=== PATIENT | male | born 1945 | race Caucasian/White ===

== ENCOUNTER 2023-09-17 19:46 | Outpatient (OUT) | payer OTHER, SELFPAY | END 2023-09-17 19:47 | disposition home or self-care (01) | LOC: SLEEP 19:46 | DX: G47.33 Obstructive sleep apnea (adult) (pediatric) (principal) | CPT/HCPCS: 95811 ==

== ENCOUNTER 2024-01-30 15:48 | Outpatient (OUT) | payer OTHER, SELFPAY ==
--- NOTE | 2024-01-30 16:05 | XR_ITS ---
The [address] [address] Patient Name: MURPHY DE LA ROSA MRN: [id number] date: 1945 Sex: M Assigned Patient Location: [facility] Current Patient Location: [facility] Accession/Order Number: [id number] Exam Date: 01/30/2024 16:00 Report Date: 01/30/2024 16:22 At the request of: FRANCESCO SCALES Procedure: XR chest 2V EXAM: XR chest 2V HISTORY: cough R05.9, Sensation of chest tightness R07.89 wheezing. COMPARISON: None. TECHNIQUE: PA, lateral chest x-ray. FINDINGS: Lungs appear clear without infiltrate or edema. Normal heart size and mediastinal contour. No pleural effusion or pneumothorax. Compression deformities upper and mid thoracic spine most significant at approximately T7 and T5 of uncertain chronicity. Lesser compressions elsewhere. No definite cortical step off, these could be old. No focal bone lesion. No other fracture seen. XR/XR chest 2V IMPRESSION: 1. Clear lungs without infiltrate or edema or other acute process. 2. Compression deformity several upper/mid thoracic vertebra of uncertain chronicity. These could be old, correlate clinically. No other bony abnormality noted Electronically authenticated by: BERRY VALDOVINOS Date: 01/30/2024 16:22
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
== END 2024-01-30 15:49 | disposition home or self-care (01) ==
LOC: RAD 15:51
PROVIDERS: PCP Family Medicine; Visit Provider Nurse Practitioner Family
DX: R05.9 Cough, unspecified (principal); R07.89 Other chest pain; R09.89 Other specified symptoms and signs involving the circulatory and respiratory systems
CPT/HCPCS: 71046

== ENCOUNTER 2024-02-15 15:17 | Outpatient (OUT) | payer OTHER, SELFPAY ==
--- NOTE | 2024-02-15 15:26 | XR_ITS ---
[facility] [id number] Patient Name: MURPHY DE LA ROSA MRN: [id number] date: 1945 Sex: M Assigned Patient Location: [facility] Current Patient Location: [facility] Accession/Order Number: [id number] Exam Date: 02/15/2024 15:33 Report Date: 02/15/2024 15:58 At the request of: DEISY GLORIA Procedure: XR thoracic spine 3V EXAMINATION: XR lumbar spine 2-3V, XR thoracic spine 3V HISTORY: pain in thoracic spine M54.6, lumbar back pain M54.50 COMPARISON: No relevant comparison available. FINDINGS: BONES: Normal alignment of the thoracic and lumbar spine with no spondylolisthesis. Anterior wedging T5 T7 and T8,T9, T10,T11 and T12, age indeterminate. Moderate diffuse degenerative spondylosis. Moderate to severe facet osteoarthropathy DISC SPACES: Multilevel disc space narrowing with endplate sclerosis and vacuum disks PARASPINOUS: Negative. No paraspinous abnormality is seen. OTHER: Atherosclerosis XR/XR thoracic spine 3V IMPRESSION: Anterior wedge compression fractures of multiple thoracic vertebral bodies, age indeterminate Moderate degenerative changes of the thoracic and lumbar spine Electronically authenticated by: FREDO SORENSEN Date: 02/15/2024 15:58
--- NOTE | 2024-02-15 15:27 | XR_ITS ---
[facility] [id number] Patient Name: MURPHY DE LA ROSA MRN: [id number] date: 1945 Sex: M Assigned Patient Location: [facility] Current Patient Location: [facility] Accession/Order Number: [id number] Exam Date: 02/15/2024 15:33 Report Date: 02/15/2024 15:58 At the request of: DEISY GLORIA Procedure: XR lumbar spine 2-3V EXAMINATION: XR lumbar spine 2-3V, XR thoracic spine 3V HISTORY: pain in thoracic spine M54.6, lumbar back pain M54.50 COMPARISON: No relevant comparison available. FINDINGS: BONES: Normal alignment of the thoracic and lumbar spine with no spondylolisthesis. Anterior wedging T5 T7 and T8,T9, T10,T11 and T12, age indeterminate. Moderate diffuse degenerative spondylosis. Moderate to severe facet osteoarthropathy DISC SPACES: Multilevel disc space narrowing with endplate sclerosis and vacuum disks PARASPINOUS: Negative. No paraspinous abnormality is seen. OTHER: Atherosclerosis XR/XR lumbar spine 2-3V IMPRESSION: Anterior wedge compression fractures of multiple thoracic vertebral bodies, age indeterminate Moderate degenerative changes of the thoracic and lumbar spine Electronically authenticated by: FREDO SORENSEN Date: 02/15/2024 15:58
== END 2024-02-15 15:18 | disposition home or self-care (01) ==
LOC: RAD 15:19
PROVIDERS: PCP Family Medicine; Visit Provider Family Medicine
DX: M54.6 Pain in thoracic spine (principal); M54.50 Low back pain, unspecified; M48.54XA Collapsed vertebra, not elsewhere classified, thoracic region, initial encounter for fracture; M51.36 Other intervertebral disc degeneration, lumbar region
CPT/HCPCS: 72072; 72100

== ENCOUNTER 2024-03-29 07:30 | Outpatient (OUT) | payer OTHER, SELFPAY ==
--- OUTSIDE RECORDS SUMMARY | 2024-03-29 07:33 | XMS_ITS | CCD ---
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 concerns, sleeping frequently Diagnosis 1 Restless leg syndrom e (G25.81) Referral Organization [facility] timur Referring Provider First Name Atiya Referring Provider Last Name Gely Referring Provider Specialty Family [facility] Referred Organization [facility] Referred Provider Jl Law Referred Address [address] [place],[address] Referred Provider Specialty Neurology Referral Priority Routine General Notes Kecia Eason 03:19:41 PM >received today, form attached, referral faxed Chief Complaint and Reason for Visit Chief Complaint Congestion Reason for Visit Abnormal lung sounds Chest tightness Cough Chief Complaint Congestion pain in lower back Reason for Visit Abnormal lung sounds Bronchitis Chest tightness Cough Lumbar pain Thoracic back pain Additional Source Comments (unrecognized sect ion and content) No Status Records FoundNo Status Records Found INFORMATION SOURCE (unrecogn ized section and content) DATE CREATED AUTHOR 03/30/2023 [facility] DATE CREATED AUTHOR AUTHOR'S ORGANIZ ATION 03/10/2024 [facility] EPIC REASON FOR VISIT (unrecogniz ed section and content) Check Upmessagefollow up3 mo nth Follow upRefillRefill Care Teams (unrecognized sec tion and content) Team Status: Active Member Role Status Dates Atiya Hong MD Primary Care Provider Active Team Status: Inactive Member Role Status Dates Atiya Hong MD Primary Care Provider Active Start: January 30, 2024 End: January 30, 2024 Alesia Polk APRN EMT [facility] Attending Provider Act iveth Start: January 30, 2024 End: January 30, 2024 Team Status: Inactive Member Role Status Dates Atiya Hong MD Primary Care Provide r, Attending Provider Active Start: February 15, 2024 End: February 15, 2024 Goals (unrecognized section and content) Goals may be documented in a n alternate section FOR RECORDS PERTAINING TO PATIENTS WHO ARE [...] BE BASED ON THE PRIMARY CLINICAL RECORDS. [facility]. provides no warranty or guarantee of the accuracy or completeness of information in this document.
[2024-03-29 08:00] LABS: Basophils Absolute Auto 0.1 10^3/uL (0.0-0.1); Basophils Percent Auto 0.7 % (0.2-2.0); Eosinophils Absolute Auto 0.1 10^3/uL (0.0-0.7); Eosinophils Percent Auto 1.1 % (0.9-7.0); Hematocrit 45.8 % (42.0-54.0); Hemoglobin 14.5 g/dL (14.0-18.0); Immature Granulocytes Abs Auto 0.02 10^3/uL (0.00-0.03); Immature Granulocytes Pct Auto 0.2 % (0.0-0.5); Lymphocytes Absolute Auto 1.7 10^3/uL (1.2-3.8); Lymphocytes Percent Auto 16.4 % (20.5-60.0); Mean Corpuscular HGB Conc 31.7 g/dL (29.9-35.2); Mean Corpuscular Hemoglobin 28.6 pg (25.9-34.0); Mean Corpuscular Volume 90.3 fL (80.0-94.0); Mean Platelet Volume 9.5 fL (9.5-13.5); Monocytes Absolute Auto 0.8 10^3/uL (0.3-0.8); Neutrophils Absolute Auto 7.9 10^3/uL (1.4-6.5); Neutrophils Percent Auto 74.6 % (43.0-75.0); Platelet Count 416 10^3/uL (150-450); Red Blood Count 5.07 10^6/uL (4.70-6.10); Red Cell Distribution Width 13.7 % (11.0-15.0); White Blood Count 10.6 10^3/uL (4.0-11.0)
[2024-03-29 08:40] LABS: Estimated Average Glucose 100 mg/dL; Glycohemoglobin A1C 5.1 % (4.5-6.2)
[2024-03-29 08:57] LABS: Alanine Aminotransferase 32 U/L (16-63); Albumin Level 3.3 g/dL (3.4-5.0); Alkaline Phosphatase 82 U/L (46-116); Anion Gap 12.2; Aspartate Amino Transferase 28 U/L (15-37); BUN Creatinine Ratio 13.6; Bilirubin Total 0.7 mg/dL (0.2-1.0); Calcium 9.2 mg/dL (8.5-10.1); Carbon Dioxide 29.7 mmol/L (21.0-32.0); Chloride 101 mmol/L (98-107); Chol HDL Ratio 2.9; Cholesterol 147 mg/dL (<=200); Estimated GFR (African America >60 (>=60); Estimated GFR (Non-African Ame >60 (>=60); Globulin 3.2 g/dL; Glucose 103 mg/dL (74-106); HDL Cholesterol 50 mg/dL (40-60); Potassium 3.9 mmol/L (3.5-5.1); Sodium 139 mmol/L (136-145); Thyroid Stimulating Hormone 1.206 uIU/mL (0.358-3.740); Total Protein 6.5 g/dL (6.4-8.2); Triglycerides 100 mg/dL (<=150)
== END 2024-03-29 07:31 | disposition home or self-care (01) ==
PROVIDERS: PCP Family Medicine; Visit Provider Family Medicine
DX: E78.5 Hyperlipidemia, unspecified (principal); I10 Essential (primary) hypertension; E11.9 Type 2 diabetes mellitus without complications
CPT/HCPCS: 36415; 80053; 80061; 83036; 84443; 85025

== ENCOUNTER 2024-05-24 11:07 | Outpatient (OUT) | payer OTHER, SELFPAY ==
--- OUTSIDE RECORDS SUMMARY | 2024-05-24 11:12 | XMS_ITS | CCD ---
Author Organization [facility] Care Team Providers Care Manager Product Support Name Role Phone SHAIKH Bayron CHAVEZ Attending Unavailable SHAIKH Bayron CHAVEZ Consulting Unavailable SHAIKH Bayron CHAVEZ Primary Care Unavailable SHAIKH Bayron CHAVEZ Admitting Unavailable Atiya Hong Unavailable HARSH JAUREGUI Referring Gal montero Allergies Allergy Classification Reported Allergen(s) Allergy Type Date of Onset Reaction(s) Facility (7 sources) Penicillin Drug Allergy 01-24-2021 hives [facility] Repository Medications Current Medications Medication Drug Class(es) Dates Sig (Normalized) Sig (Original) [id number] 200 actuat albuterol 0.09 mg/actuat metered dose inhaler (3 sources) beta2-Adrenergic Agonist Start: 02-27-2024 take 2 puff(s) by mouth every four to six hours as needed for wheezing Albuterol Sulfate Active 0 .ROUTE .COMPLEX 6.7 February 27, 2024 7:52am INHALE 2 PUFFS ORALLY EVERY 4-6 HOURS NEEDED FOR SHORTNESS OF BREATH OR WHEEZING FOR 30 DAYS Start: 01-31-2024 End: 02-27-2024 take 1 puff(s) by inhalation every four to six hours Albuterol Sulfate Discontinued 2 PUFF INHALATION EVERY 4-6 HOURS 6.7 January 31, 2024 12:00am February 27, 2024 7:53am Start: 01-31-2024 take 1 puff(s) by in halation every four to six hours Albuterol Sulfate Active 2 PUFF INHALATION EVERY 4-6 HOURS 6.7 January 31, 2024 12:00am amLODIPine 5 mg oral tablet (9 sources) Dihydropyridine Calcium Channel Claire Start: 01-30-2024 take 5 mg by mouth once daily Amlodipine Active 5 MG PO Daily January 30, 2024 12:00am take 1 tablet by james th every twenty-four hours amLODIPine Besylate 5 MG 1 tablet Orally Once a day Active ascorbic acid 500 mg oral tablet (9 sources) Vitamin C Start: 01-30-2024 take 500 mg by mouth once daily Ascorbic Acid (Vitamin C) Active 500 MG PO Daily January 30, 2024 12:00am Vitamin C Active cholecalciferol 0.05 mg oral capsule (9 sources) Vitamin D Start: 01-30-2024 take 50 ug by mouth once daily Cholecalciferol (Vitamin D3) Active 50 MCG PO Daily January 30, 2024 12:00am take 1 tablet by james th every twenty-four hours Vitamin D 50 MCG (2000 UT) 1 tablet Orally Once a day Active donepezil hydrochloride 5 mg oral tablet (6 sources) Start: 01-30-2024 take 5 mg by mouth once daily at bedtime Donepezil Active 5 MG PO Daily at bedtime January 30, 2024 12:00am Aricept 5 MG 1 t ablet at HS Active ferrous sulfate 325 mg oral tablet (9 sources) Start: 01-30-2024 take 325 mg by mouth once daily Ferrous Sulfate Active 325 MG PO Daily January 30, 2024 12:00am take 1 tablet by mouth once sherly y Ferrous Sulfate 325 (65 Fe) MG 1 tablet Orally every day Active take 1 tablet by mouth once sherly y Ferrous Sulfate 325 (65 Fe) MG 1 tablet Orally every day Active Garlic (9 sources) Non-Standardized Food Allergenic Extract Start: 01-30-2024 take 1000 mg by mouth once daily Garlic Active 1000 MG PO Daily January 30, 2024 12:00am Garlic 1000 MG a s directed Orally Active hydroCHLOROthiazide 25 mg / lisinopril 20 mg oral tablet (9 sources) Thiazide Diuretic, Angiotensin Converting Enzyme Inhibitor Start: 01-30-2024 take 1 tablet by mouth once daily Lisinopril-Hydrochlorothiazide Active 1 TAB PO Daily January 30, 2024 12:00am take 1 tablet by james th every twenty-four hours Lisinopril-hydroCHLOROthiazide 20-25 MG 1 tablet Orally Once a day Active meloxicam 7.5 mg oral tablet (2 sources) Nonsteroidal Anti-inflammatory Drug Start: 02-15-2024 take 7.5 mg by mouth once daily Meloxicam Active 7.5 MG PO Daily February 15, 2024 12:00am metFORMIN hydrochloride 500 mg oral tablet (9 sources) Biguanide Start: 01-30-2024 take 500 mg by mouth once daily Metformin Active 500 MG PO Daily January 30, 2024 12:00am take 1 tablet by james th every twenty-four hours metFORMIN HCl 500 MG 1 tablet Orally once a day Active take 1 tablet by mouth three jeremiah es daily metFORMIN HCl 500 MG 1 tablet Orally three times daily Active Multivitamin preparation (9 sources) Start: 01-30-2024 take 1 tablet by mouth once daily Multivitamin Active 1 TAB PO Daily January 30, 2024 12:00am take 1 tablet by mouth once sherly y Multivitamin - 1 tablet Orally Once a day Active pramipexole dihydrochloride 0.5 mg oral tablet (10 sources) Nonergot Dopamine Agonist Start: 04-18-2024 take 1 tablet by mouth once daily Pramipexole Active 0 .ROUTE .COMPLEX April 18, 2024 11:02am TAKE 1 TABLET BY MOUTH EVERY DAY FOR 90 DAYS Start: 01-30-2024 End: 04-18-2024 take 0.5 mg by mouth three times daily Pramipexole Discontinued 0.5 MG PO Three times daily January 30, 2024 12:00am April 18, 2024 11:02am take 1 tablet by james th every eight hours Pramipexole Dihydrochloride 0.5 MG 1 tablet Orally three times a day for 90 days Active take 1 tablet by james th every twenty-four hours Pramipexole Dihydrochloride 0.5 MG 1 tablet Orally once a day for 90 days Active pravastatin sodium 40 mg oral tablet (9 sources) HMG-CoA Reductase Inhibitor Start: 01-30-2024 take 40 mg by mouth once daily Pravastatin Active 40 MG PO Daily January 30, 2024 12:00am Pravastatin Sodi um 40 MG TAKE 1 TABLET BY MOUTH EVERY DAY FOR 90 DAYS for 90 Active vitamin b12 1 mg oral tablet (9 sources) Vitamin B12 Start: 01-30-2024 take 1000 [...] 1000 mcg benzonatate 200 mg oral capsule (4 sources) Non-narcotic Antitussive Start: 01-31-2024 End: 02-15-2024 take 200 mg by mouth three times daily Benzonatate Discontinued 200 MG PO Three times daily 30 10 February 11, 2024 3:43pm February 15, 2024 2:57pm doxycycline monohydrate 100 mg oral tablet (2 sources) Tetracycline-class Drug Start: 01-31-2024 End: 02-15-2024 take 100 mg by mouth twice daily Doxycycline Monohydrate Discontinued 100 MG PO Twice daily 20 January 31, 2024 12:00am February 15, 2024 2:57pm Problems Problem Classification Problem Date Documented Da te Episodic/Chronic Chronic obstructive pulmonary disease and bronchiectasis (3 sources) Bronchitis; Translations: [Bronchitis, not specified as acute or chronic] 01-31-2024 Episodic Deficiency and other anemia (6 sources) Iron deficiency anemia; Translations: [Iron deficiency anemia, unspecified] Episodic Deficiency and other anemia (4 sources) Pernicious anemia; Translations: [Vitamin B12 deficiency anemia due to intrinsic factor deficiency] Episodic Deficiency and other anemia (2 sources) Vitamin B12 deficiency anemia due to intrinsic factor deficiency Episodic Diabetes mellitus without complication (1 source) Type 2 diabetes mellitus; Translations: [Type 2 diabetes mellitus without complications] 03-18-2024 Chronic Disorders of lipid metabolism (8 sources) Mixed hyperlipidemia; Translations: [Mixed hyperlipidemia] Chronic Essential hypertension (9 sources) Essential hypertension; Translations: [Essential (primary) hypertension] Chronic Nonspecific chest pain (5 sources) Tight chest; Translations: [Other chest pain] 01-30-2024 Episodic Nutritional deficiencies (1 source) Deficiency of other specified B group vitamins Episodic Other circulatory disease (3 sources) Abnormal chest sounds; Translations: [Other specified symptoms and signs involving the circulatory and respiratory systems] 01-30-2024 Episodic Other circulatory disease (3 sources) Other specified symptoms and signs involving the circulatory and respiratory systems; Translations: [Abnormal chest sounds] 01-30-2024 Episodic Other circulatory disease (1 source) Carotid bruit; Translations: [Other specified symptoms and signs involving the circulatory and respiratory systems] 05-21-2024 Episodic Other fractures (1 source) Compression fracture of thoracic spine; Translations: [Wedge compression fracture of unspecified thoracic vertebra, initial encounter for closed fracture] 02-19-2024 Episodic Other hereditary and degenerative nervous system conditions (6 sources) Restless legs; Translations: [Restless legs syndrome] Chronic Other hereditary and degenerative nervous system conditions (5 sources) Restless legs syndrome Chronic Other lower respiratory disease (5 sources) Cough; Translations: [Cough] 01-30-2024 Episodic Spondylosis; intervertebral disc disorders; other back problems (6 sources) Low back pain; Translations: [Lumbar back pain] 02-15-2024 Episodic Results Test Name Value Interpretation Reference Range Facility Basophils Auto (Bld) [#/Vol] on 03-29-2024 Basophils (Bld) [#/Vol] 0.1 10 3/uL 0.0-0.1 [facility] Basophils/100 WBC Auto (Bld) on 03-29-2024 Basophils/100 WBC (Bld) 0.7 % 0.2-2.0 [facility] Cholesterol in LDL Calc [Mas s/Vol]on 03-29-2024 Cholesterol in LDL [Mass/Vol] 77.0 mg/dL [facility] Comment on above: <100 mg/dl [id number] 0-129 mg/dl NEAR OR ABOVE [id number] mg/dl BORDERLINE [id number] mg/dl HIGH>190 mg/dl VERY HIGH Cholesterol in VLDL Calc [Ma ss/Vol]on 03-29-2024 Cholesterol in VLDL [Mass/Vol] 20.0 mg/dL [facility] Eosinophils/100 WBC Auto (Bl d)on 03-29-2024 Eosinophils/100 WBC (Bld) 1.1 % 0.9-7.0 [facility] Erythrocyte distribution wid th Auto (RBC) [Ratio]on 03-29-2024 Erythrocyte distribution width (RBC) [Ratio] 13.7 % 11.0-15.0 [facility] Estimated glomerular filtrat ion rate (GFR) non- Americanon 03-29-2024 GFR/1.73 sq M.predicted among non-blacks MDRD (S/P/Bld) [Vol rate/Area] mL/min/{1.73_m2} >=60 [facility] Globulin Calc (S) [Mass/Vol] on 03-29-2024 Globulin (S) [Mass/Vol] 3.2 g/dL [facility] Glucose mean value [Mass/vol ume] in Blood Estimated from glycated hemoglobinon 03-29-2024 Average glucose Estimated from glycated hemoglobin (Bld) [Mass/Vol] 100 mg/dL [facility] Hematocrit Auto (Bld) [Volum e fraction]on 03-29-2024 Hematocrit (Bld) [Volume fraction] 45.8 % 42.0-54.0 [facility] Hemoglobin [Mass/volume] in Bloodon 03-29-2024 Hemoglobin (Bld) [Mass/Vol] 14.5 g/dL 14.0-18.0 [facility] Laboratory - Chemistry and C hemistry - challengeon 03-29-2024 Albumin [Mass/Vol] 3.3 g/dL Low 3.4-5.0 [facility] ALP [Catalytic activity/Vol] 82 U/L 46-116 [facility] ALT [Catalytic activity/Vol] 32 U/L 16-63 [facility] AST [Catalytic activity/Vol] 28 U/L 15-37 [facility] Bilirubin [Mass/Vol] 0.7 mg/dL 0.2-1.0 [facility] Calcium [Mass/Vol] 9.2 mg/dL 8.5-10.1 [facility] Chloride [Moles/Vol] 101 mmol/L 98-107 [facility] Cholesterol [Mass/Vol] 147 mg/dL <=200 [facility] Cholesterol in HDL [Mass/Vol] 50 mg/dL 40-60 [facility] Comment on above: > or =60 mg/dl - LOW CARDIOVASCULAR RISK<40 mg/dl - HIGH CARDIOVASCULAR RISK CO2 [Moles/Vol] 29.7 mmol/L 21.0-32.0 [facility] Creatinine [Mass/Vol] 0.81 mg/dL 0.70-1.30 [facility] GFR/1.73 sq M.predicted MDRD (S/P/Bld) [Vol rate/Area] mL/min/{1.73_m2} >=60 [facility] Glucose [Mass/Vol] 103 mg/dL 74-106 [facility] Potassium [Moles/Vol] 3.9 mmol/L 3.5-5.1 [facility] Protein [Mass/Vol] 6.5 g/dL 6.4-8.2 [facility] Sodium [Moles/Vol] 139 mmol/L 136-145 [facility] Triglyceride [Mass/Vol] 100 mg/dL <=150 [facility] TSH Qn 1.206 m[IU]/L 0.358-3.740 [facility] Urea nitrogen [Mass/Vol] 11.0 mg/dL 7.0-18.0 [facility] Urea nitrogen/Creatinine [Mass ratio] 13.6 mg/mg [facility] Laboratory - Hematology and Cell countson 03-29-2024 HbA1c (Bld) [Mass fraction] 5.1 % 4.5-6.2 [facility] Comment on above: ADA RECOMMENDED LIMI T 4.0 - 6.0ADA THERAPEUTIC TARGET < 7.0ACTION SUGGESTED> 7.0 Immature granulocytes/100 WBC (Bld) 0.2 % 0.0-0.5 [facility] Leukocytes [#/volume] correc lenin for nucleated erythrocytes in Blood by Automated counon 03-29-2024 WBC corrected for nucl RBC Auto (Bld) [#/Vol] 10.6 10 3/uL 4.0-11.0 [facility] Lymphocytes Auto (Bld) [#/Vo l]on 03-29-2024 Lymphocytes (Bld) [#/Vol] 1.7 10 3/uL 1.2-3.8 [facility] Lymphocytes/100 WBC Auto (Bl d)on 03-29-2024 Lymphocytes/100 WBC (Bld) 16.4 % Low 20.5-60.0 [facility] MCH Auto (RBC) [Entitic mass ]on 03-29-2024 MCH (RBC) [Entitic mass] 28.6 pg 25.9-34.0 [facility] MCHC Auto (RBC) [Mass/Vol]on 03-29-2024 MCHC (RBC) [Mass/Vol] 31.7 g/dL 29.9-35.2 [facility] MCV Auto (RBC) [Entitic vol] on 03-29-2024 MCV (RBC) [Entitic vol] 90.3 fL 80.0-94.0 [facility] Monocytes Auto (Bld) [#/Vol] on 03-29-2024 Monocytes (Bld) [#/Vol] 0.8 10 3/uL 0.3-0.8 [facility] Monocytes/100 WBC Auto (Bld) on 03-29-2024 Monocytes/100 WBC (Bld) 7.0 % 1.7-12.0 [facility] Neutrophils Auto (Bld) [#/Vo l]on 03-29-2024 Neutrophils (Bld) [#/Vol] 7.9 10 3/uL High 1.4-6.5 [facility] Neutrophils/100 WBC Auto (Bl d)on 03-29-2024 Neutrophils/100 WBC (Bld) 74.6 % 43.0-75.0 [facility] No Panel Informationon 03-29 Eosinophils # (Auto) 0.1 10 3/uL 0.0-0.7 [facility] Immature Granulocyte # (Auto) 0.02 10 3/uL 0.00-0.03 [facility] Platelet mean volume Auto (B ld) [Entitic vol]on 03-29-2024 Platelet mean volume (Bld) [Entitic vol] 9.5 fL 9.5-13.5 [facility] Platelets Auto (Bld) [#/Vol] on 03-29-2024 Platelets (Bld) [#/Vol] 416 10 3/uL 150-450 [facility] RBC Auto (Bld) [#/Vol]on RBC (Bld) [#/Vol] 5.07 10 6/uL 4.70-6.10 [facility] Serum or plasma albumin/glob ulin mass ratioon 03-29-2024 Albumin/Globulin [Mass ratio] 1.0 {ratio} [facility] Serum or plasma anion gap de terminationon 03-29-2024 Anion gap [Moles/Vol] 12.2 mmol/L [facility] Serum or plasma total choles terol/high density lipoprotein (HDL) cholesterol mass tamara 03-29-2024 Cholesterol.total/Cho lesterol in HDL [Mass ratio] 2.9 {ratio} [facility] Comment on above: 3.3 - 4.4 LOW RISK4. 4 - 7.1 AVERAGE RISK7.1 - 11.0 MODERATE RISK>11.0 HIGH RISK MR THORACIC SPINE WO CONTRAS Ton 03-04-2024 [...] 03-21-2023 BASO # 0.1 103/ul Normal 0.0-0.1 [facility] Comment on above: Performed By: #### C BC #### [facility] [address] [address] [address] Robb Brooks Basophils/100 WBC (Bld) 0.5 % Normal 0.2-2.0 [facility] Comment on above: Performed By: #### C BC #### [facility] [address] [address] [address] Robb Brooks EO # 0.4 103/ul Normal 0.0-0.7 [facility] Comment on above: Performed By: #### C BC #### [facility] [address] [address] [address] Robb Brooks Eosinophils/100 WBC (Bld) 3.6 % Normal 0.9-7.0 [facility] Comment on above: Performed By: #### C BC #### [facility] [address] [address] [address] Robb Brooks Erythrocyte distribution width (RBC) [Ratio] 13.8 % Normal 11.0-15.0 [facility] Comment on above: Performed By: #### C BC #### [facility] [address] [address] [address] Robb Brooks Hematocrit (Bld) [Volume fraction] 45.6 % Normal 42.0-54.0 [facility] Comment on above: Performed By: #### C BC #### [facility] [address] [address] [address] Robb Brooks Hemoglobin (Bld) [Mass/Vol] 14.7 g/dL Normal 14.0-18.0 [facility] Comment on above: Performed By: #### C BC #### [facility] [address] [address] [address] Robb Brooks IG # 0.05 10e3/ul Critically high 0.00-0.03 [facility] Comment on above: Performed By: #### C BC #### [facility] [address] [address] [address] Robb Brooks IG % 0.4 % Normal 0.0-0.5 [facility] Comment on above: Performed By: #### C BC #### [facility] [address] [address] [address] Robb Brooks LYMPH # 1.3 103/ul Normal 1.2-3.8 [facility] Comment on above: Performed By: #### C BC #### [facility] [address] [address] [address] Robb Brooks Lymphocytes/100 WBC (Bld) 11.1 % Critically low 20.5-60.0 [facility] Comment on above: Performed By: #### C BC #### [facility] [address] [place] [address] Dr. Robb Brooks MANUAL DIFF REQ NO Normal [facility] Comment on above: Performed By: #### C BC #### [facility] [address] [place] [address] Dr. Robb Brooks MCH (RBC) [Entitic mass] 28.5 pg Normal 25.9-34.0 [facility] Comment on above: Performed By: #### C BC #### [facility] [address] [place] [address] Dr. Robb Brooks MCHC (RBC) [Mass/Vol] 32.2 g/dL Normal 29.9-35.2 [facility] Comment on above: Performed By: #### C BC #### [facility] [address] [place] [address] Dr. Robb Brooks MCV (RBC) [Entitic vol] 88.4 fL Normal 80.0-94.0 [facility] Comment on above: Performed By: #### C BC #### [facility] [address] [place] [address] Dr. Robb Brooks MONO # 1.1 103/ul Critically high 0.3-0.8 [facility] Comment on above: Performed By: #### C BC #### [facility] [address] [place] [address] Dr. Robb Brooks Monocytes/100 WBC (Bld) 8.7 % Normal 1.7-12.0 [facility] Comment on above: Performed By: #### C BC #### [facility] [address] [address] [address] Robb Brooks NEUT # 9.1 103/ul Critically high 1.4-6.5 [facility] Comment on above: Performed By: #### C BC #### [facility] [address] [address] [address] Robb Brooks Neutrophils/100 WBC (Bld) 75.7 % Critically high 43.0-75.0 [facility] Comment on above: Performed By: #### C BC #### [facility] [address] [address] [address] Robb Brooks Platelet mean volume (Bld) [Entitic vol] 9.4 fL Critically low 9.5-13.5 [facility] Comment on above: Performed By: #### C BC #### [facility] [address] [place] [address] Dr. Robb Brooks PLT 298 103/ul Normal 150-450 [facility] Comment on above: Performed By: #### C BC #### [facility] [address] [place] [address] Dr. Robb Brooks RBC 5.16 106/ul Normal 4.70-6.10 [facility] Comment on above: Performed By: #### C BC #### [facility] [address] [place] [address] Dr. Robb Brooks WBC 12.1 103/ul Critically high 4.0-11.0 [facility] Comment on above: Performed By: #### C BC #### [facility] [address] [place] [address] Dr. Robb Brooks FERRITINon 03-21-2023 Ferritin [Mass/Vol] 56.0 ng/mL Normal 26.0-388.0 [facility] Comment on above: Performed By: #### V ITB12, FERR #### [facility] [address] [place] [address] Dr. Robb Brooks LIPID PROFILEon 03-21-2023 CHOL-HDL RATIO NORM SEE BELOW Normal [facility] Comment on above: Result Comment: 3.3 - 4.4 LOW RISK 4.4 - 7.1 AVERAGE RISK 7.1 - 11.0 MODERATE RISK >11.0 HIGH RISK Performed By: #### C MP, LIPID #### [facility] [address] [address] [address] Robb Brooks Cholesterol [Mass/Vol] 132 mg/dL Normal <=200 [facility] Comment on above: Performed By: #### C MP, LIPID #### [facility] [address] [address] [address] Robb Brooks Cholesterol in HDL [Mass/Vol] 44 mg/dL Normal 40-60 [facility] Comment on above: Performed By: #### C MP, LIPID #### [facility] [address] [place] [address] Dr. Robb Brooks Cholesterol in LDL [Mass/Vol] 67.2 mg/dL Normal [facility] Comment on above: Performed By: #### C MP, LIPID #### [facility] [address] [place] [address] Dr. Robb Brooks Cholesterol.total/Cho lesterol in HDL [Mass ratio] 3.0 {ratio} Normal [facility] Comment on above: Performed By: #### C MP, LIPID #### [facility] [address] [place] [address] Dr. Robb Brooks HDL NORMAL > or = 60 mg/dl - LOW CARDIOVASCULAR RISK <40 mg/dl - HIGH CARDIOVASCULAR RISK Normal [facility] Comment on above: Performed By: #### C MP, LIPID #### [facility] [address] [place] [address] Dr. Robb Brooks LDL CALC NORMAL SEE BELOW Normal [facility] Comment on above: Result Comment: <100 mg/dl OPTIMAL 100 - 129 mg/dl NEAR OR ABOVE OPTIMAL 130 - 159 mg/dl BORDERLINE HIGH 160 - 189 mg/dl HIGH >190 mg/dl VERY HIGH Performed By: #### C MP, LIPID #### [facility] [address] [place] [address] Dr. Robb Brooks Triglyceride [Mass/Vol] 104 mg/dL Normal <=150 [facility] Comment on above: Performed By: #### C MP, LIPID #### [facility] [address] [address] [address] Robb Brooks VLDL CALC 20.8 mg/dL Normal [facility] Comment on above: Performed By: #### C MP, LIPID #### [facility] [address] [address] [address] Robb Brooks PROF 14(COMP METB)on 023 Albumin [Mass/Vol] 3.2 g/dL Critically low 3.4-5.0 [facility] Comment on above: Performed By: #### C MP, LIPID #### [facility] [address] [address] [address] Robb Brooks Albumin/Globulin [Mass ratio] 0.9 {ratio} Normal [facility] Comment on above: Performed By: #### C MP, LIPID #### [facility] [address] [place] [address] Dr. Robb Brooks ALP [Catalytic activity/Vol] 59 U/L Normal 46-116 [facility] Comment on above: Performed By: #### C MP, LIPID #### [facility] [address] [place] [address] Dr. Robb Brooks ALT [Catalytic activity/Vol] 40 U/L Normal 16-63 [facility] Comment on above: Performed By: #### C MP, LIPID #### [facility] [address] [place] [address] Dr. Robb Brooks Anion gap [Moles/Vol] 11.9 mmol/L Normal [facility] Comment on above: Performed By: #### C MP, LIPID #### [facility] [address] [place] [address] Dr. Robb Brooks AST [Catalytic activity/Vol] 26 U/L Normal 15-37 [facility] Comment on above: Performed By: #### C MP, LIPID #### [facility] [address] [place] [address] Dr. Robb Brooks Bilirubin [Mass/Vol] 0.6 mg/dL Normal 0.2-1.0 [facility] Comment on above: Performed By: #### C MP, LIPID #### [facility] [address] [address] [address] Robb Brooks Calcium [Mass/Vol] 9.1 mg/dL Normal 8.5-10.1 [facility] Comment on above: Performed By: #### C MP, LIPID #### [facility] [address] [address] [address] Robb Brooks Chloride [Moles/Vol] 102 mmol/L Normal 98-107 [facility] Comment on above: Performed By: #### C MP, LIPID #### [facility] [address] [address] [address] Robb Brooks CO2 [Moles/Vol] 31.4 mmol/L Normal 21.0-32.0 [facility] Comment on above: Performed By: #### C MP, LIPID #### [facility] [address] [place] [address] Dr. Robb Brooks Creatinine [Mass/Vol] 0.82 mg/dL Normal 0.70-1.30 [facility] Comment on above: Performed By: #### C MP, LIPID #### [facility] [address] [address] [address] Robb Brooks EGFR-AF SAMOAN >60 Normal >=60 [facility] Comment on above: Performed By: #### C MP, LIPID #### [facility] [address] [place] [address] Dr. Robb Brooks EGFR-NON AF SAMOAN >60 Normal >=60 [facility] Comment on above: Performed By: #### C MP, LIPID #### [facility] [address] [address] [address] Robb Brooks Globulin (S) [Mass/Vol] 3.4 g/dL Normal [facility] Comment on above: Performed By: #### C MP, LIPID #### [facility] [address] [address] [address] Robb Brooks Glucose [Mass/Vol] 113 mg/dL Critically high 74-106 T [facility] Comment on above: Performed By: #### C MP, LIPID #### [facility] [address] [address] [address] Robb Brooks Potassium [Moles/Vol] 4.3 mmol/L Normal 3.5-5.1 [facility] Comment on above: Performed By: #### C MP, LIPID #### [facility] [address] [place] [address] Dr. Robb Brooks Protein [Mass/Vol] 6.6 g/dL Normal 6.4-8.2 [facility] Comment on above: Performed By: #### C MP, LIPID #### [facility] [address] [address] [address] Robb Brooks Sodium [Moles/Vol] 141 mmol/L Normal 136-145 [facility] Comment on above: Performed By: #### C MP, LIPID #### [facility] [address] [place] [address] Dr. Robb Brooks Urea nitrogen [Mass/Vol] 13.0 mg/dL Normal 7.0-18.0 [facility] Comment on above: Performed By: #### C MP, LIPID #### [facility] [address] [place] [address] Dr. Robb Brooks Urea nitrogen/Creatinine [Mass ratio] 15.9 mg/mg Normal [facility] Comment on above: Performed By: #### C MP, LIPID #### [facility] [address] [place] [address] Dr. Robb Brooks VITAMIN B12on 03-21-2023 Cobalamin (Vitamin B12) [Mass/Vol] 190.0 pg/mL Critically low 193.0-986.0 [facility] Comment on above: Performed By: #### V ITB12, FERR #### [facility] [address] [place] [address] Dr. Robb Brooks Vital Signs Date Time Vital Sign Value Performing Clinician Facility 05-21-2024 10:49-0400 Body height 173.99 cm [facility] 05-21-2024 10:49-0400 Body mass index (BMI) [Ratio] 31.8 kg/m2 [facility] 05-21-2024 10:49-0400 Body weight 96.61 kg [facility] 05-21-2024 10:49-0400 Diastolic blood pressure 67 mm[Hg] [facility] 05-21-2024 10:49-0400 Heart rate 105 /min [facility] 05-21-2024 10:49-0400 Systolic blood pressure 97 mm[Hg] [facility] 02-15-2024 14:34-0400 Body height 173.99 cm [facility] 02-15-2024 14:34-0400 Body mass index (BMI) [Ratio] 36.1 kg/m2 [facility] 02-15-2024 14:34-0400 Body weight 109.31 kg [facility] 02-15-2024 14:34-0400 Diastolic blood pressure 93 mm[Hg] [facility] 02-15-2024 14:34-0400 Heart rate 65 /min [facility] 02-15-2024 14:34-0400 SaO2% (BldA) [Mass fraction] 90 % [facility] 02-15-2024 14:34-0400 Systolic blood pressure 141 mm[Hg] [facility] 01-30-2024 15:03-0400 Body height 173.99 cm [facility] 01-30-2024 15:03-0400 Body mass index (BMI) [Ratio] 39.2 kg/m2 [facility] 01-30-2024 15:03-0400 Body weight 118.84 kg [facility] 01-30-2024 15:03-0400 Diastolic blood pressure 78 mm[Hg] [facility] 01-30-2024 15:03-0400 Heart rate 115 /min [facility] 01-30-2024 15:03-0400 SaO2% (BldA) [Mass fraction] 96 % [facility] 01-30-2024 15:03-0400 Systolic blood pressure 120 mm[Hg] [facility] 08-30-2023 14:45-0500 Body height 173.99 cm Atiya Hong Other [facility] Other 08-30-2023 14:45-0500 Body mass index (BMI) [Ratio] 36.86 kg/m2 Atiya Hong Other [facility] Other 08-30-2023 14:45-0500 Body weight 111.59 kg Atiya Hong Other [facility] Other 08-30-2023 14:45-0500 Diastolic blood pressure 77 mm[Hg] Atiya Hong Other [facility]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
--- NOTE | 2024-05-24 11:30 | US_ITS ---
The [address] [address] Patient Name: MURPHY DE LA ROSA MRN: [id number] date: 1945 Sex: M Assigned Patient Location: Current Patient Location: Accession/Order Number: [id number] Exam Date: 05/24/2024 11:32 Report Date: 05/25/2024 07:24 At the request of: DEISY GLORIA Procedure: US carotid duplex BI DUPLEX ULTRASOUND EXAMINATION OF THE CAROTID ARTERIES. COMPARISON: None. HISTORY / INDICATIONS: Carotid bruit TECHNIQUE: Bilateral common carotid arteries, extracranial internal and external carotid arteries are evaluated with logan-scale imaging, color Doppler, and spectral analysis according to a standard protocol. ICA-CCA ratios are calculated with telephone claims representative peak-systolic velocities and recorded. Vertebral arteries are evaluated in one segment to evaluate for patency and character of flow. Comparison with previous evaluation is performed when available. Unless otherwise specified, all velocities are measured in cm/sec. Carotid stenosis is reported according to validated velocity parameters, similar to NASCET criteria. FINDINGS: Right Carotid: Plaque was noted. Velocity measurements as follows: Internal Carotid Artery 55/6, 40/16, and 40/9. ICA to CCA ratio: 0.8. Left Carotid: Plaque was noted. Velocity measurements as follows: Internal Carotid Artery 46/19, 38/14, 34/12. ICA to CCA ratio: 0.9. Antegrade flow was seen in both vertebral arteries. CONCLUSION: 1. Less than 50% stenosis of the right ICA. 2. Less than 50% stenosis of the left ICA. 3. Vertebral arteries are patent and demonstrate antegrade flow. Electronically authenticated by: Lakhwinder DAMON Date: 05/25/2024 07:24
== END 2024-05-24 11:08 | disposition home or self-care (01) ==
LOC: US 11:09
PROVIDERS: PCP Family Medicine; Visit Provider Family Medicine
DX: R09.89 Other specified symptoms and signs involving the circulatory and respiratory systems (principal)
CPT/HCPCS: 93880

== ENCOUNTER 2024-11-19 15:30 | Inpatient (IN) | payer OTHER, SELFPAY ==
[2024-11-19] VITALS (37 sets, daily range): BP systolic 92–161; BP diastolic 58–131; PULSE 103–134; RESP 20; TEMP 36.7–37.1; O2SAT 88–99; BMI 31.7; BMI 31.6
--- NOTE | 2024-11-19 15:31 | XR_ITS ---
The [address] [address] Patient Name: MURPHY DE LA ROSA MRN: [id number] date: 1945 Sex: M Assigned Patient Location: ER Current Patient Location: ED.MAIN Accession/Order Number: [id number] Exam Date: 11/19/2024 16:05 Report Date: 11/19/2024 16:54 At the request of: LISA MANE Procedure: XR chest 1V EXAMINATION: XR chest 1V, , 11/19/2024 1:05 PM [facility] INDICATION: sob HISTORY: Ordering Provider Reason for Exam: sob Technologist Note: Additional: COMPARISON: None. TECHNIQUE: Chest x-ray: One view. FINDINGS: No pneumothorax, pleural effusion or focal airspace consolidation. Mild bibasilar atelectasis is seen. Low lung volumes are seen, likely related to poor inspiratory effort. Heart is normal in size. Degenerative changes are seen about the left glenohumeral joint with joint space narrowing and subchondral sclerosis. XR/XR chest 1V IMPRESSION: Mild bibasilar atelectasis. Electronically authenticated by: SOCORRO HAWK Date: 11/19/2024 16:54
--- NOTE | 2024-11-19 15:31 | ECG_ITS ---
The [facility] Test Date: 2024-11-19 Pat Name: MURPHY DE LA ROSA Department: Room: - Gender: Male [employer] Operator: : 1945 Requested By: DEISY GLORIA Order Number: [id number] Reading MD: RIOS ADAMS Measurements Intervals Daniel Rate: 135 P: 54 ND: 180 QRS: 56 QRSD: 96 T: 242 QT: 308 QTc: 387 Interpretive Statements 1120 Sinus tachycardia 1570 with occasional ventricular premature complexes [address] depression 4564 Twave abnormality, possible lateral ischemia 9150 abnormal ECG No previous ECG available for comparison Electronically Signed On 11-20-2024 7:00:12 EST by RIOS ADAMS
[2024-11-19 15:56] LABS: ABG PCO2 43.6 mmHg (35.0-45.0); PO2 ABG 67.3 mmHg (80.0-100.0); pH ABG 7.362 (7.350-7.450)
[2024-11-19 15:57] LABS: Allen Test POSITIVE (POSITIVE); Base Excess ABG -0.7 mmol/L (-2.0-2.0); HCO3 ABG 24.7 mmol/L (22.0-26.0); Liters per Minute 3.5; O2 Mode NC; Puncture Site R. RADIAL
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
--- NOTE | 2024-11-19 16:09 | PC.NURSE ---
Pt Martine called - given update with pt's care. RT at bedside placing on BiPAP. lab remains in room trying to get blood
[2024-11-19] MEDS: IPRATROPIUM/ALBUTEROL SULFATE 3 ML AMPUL.NEB IH ×2 (16:10→23:39)
[2024-11-19 16:12] LABS: Hematocrit 56.6 % (42.0-54.0); Hemoglobin 18.5 g/dL (14.0-18.0); Mean Corpuscular HGB Conc 32.7 g/dL (29.9-35.2); Mean Corpuscular Hemoglobin 28.7 pg (25.9-34.0); Mean Corpuscular Volume 87.9 fL (80.0-94.0); Mean Platelet Volume 9.5 fL (9.5-13.5); Platelet Count 315 10^3/uL (150-450); Red Blood Count 6.44 10^6/uL (4.70-6.10); Red Cell Distribution Width 13.9 % (11.0-15.0)
--- NOTE | 2024-11-19 16:19 | CT_ITS ---
The [address] [address] Patient Name: MURPHY DE LA ROSA MRN: [id number] date: 1945 Sex: M Assigned Patient Location: ER Current Patient Location: Accession/Order Number: [id number] Exam Date: 11/19/2024 16:17 Report Date: 11/19/2024 16:47 At the request of: LISA MANE Procedure: CT head/brain wo con EXAMINATION: CT head/brain wo con HISTORY: fall COMPARISON: None. TECHNIQUE: CT head without intravenous contrast. Dose reduction techniques were achieved by using: automated exposure control and/or adjustment of mA and /or kV according to patient size and/or use of iterative reconstruction technique. FINDINGS: The ventricles and sulci are within normal limits in size and configuration for age. There is no evidence for acute intracranial hemorrhage. There are no foci of abnormal parenchymal attenuation. There is no mass effect or midline shift. There are no abnormal extraaxial fluid collections. CT/CT head/brain wo con IMPRESSION: Negative for acute intracranial hemorrhage or acute intracranial process. Electronically authenticated by: TRINA RIVAS Date: 11/19/2024 16:47
--- NOTE | 2024-11-19 16:25 | ED.GENADUL1 ---
HPI HPI - General Adult General Chief complaint: Shortness of Breath/Dyspnea Stated complaint: fall Time Seen by Provider: 11/19/24 15:31 Source: patient, medical record and other Source information: ems Mode of arrival: ambulance Limitations: physical limitation History of Present Illness HPI narrative: Patient presents to ED for evaluation of shortness of breath and not feeling well. Per EMS patient was found laying on the ground where he had been since yesterday because he was too weak to get up. The said he kept refusing for her to call EMS until finally he let her call just prior to arrival. He fell 2 days ago but they were able to get him up and then he fell again yesterday just slipping off the toilet onto the ground. said it was not a major traumatic fall. She said they were unable to get him up and he was unable to get up and he was very weak but continued to refuse any help so he laid on the ground since yesterday. Upon arrival patient is tachypneic and diaphoretic short of breath and has mottling of his skin. He does wear a CPAP or BiPAP at night. He does not have oxygen during the day. Patient states he is feeling short of breath. Denies any fevers. Patient's heart rate on arrival is tachycardic he is tachypneic his oxygen saturation was 92%. Respiratory was called to the room immediately to place patient on BiPAP because he appeared to be in moderate to severe respiratory distress. Patient did receive a DuoNeb and route. Patient does have dementia and per EMS the said he is at his normal mentation Related Data Home Medications ?Medication ?Instructions ?Recorded ?Confirmed donepezil 10 mg tablet 10 mg PO .QHS 11/19/24 11/19/24 ferrous sulfate 325 mg (65 mg 325 mg PO DAILY 11/19/24 11/19/24 iron) tablet (Daren-Time) lisinopril 20 1 tab PO DAILY 11/19/24 11/19/24 mg-hydrochlorothiazide 25 mg tablet pramipexole 0.5 mg tablet 0.5 mg PO DAILY 11/19/24 11/19/24 pravastatin 40 mg tablet 40 mg PO DAILY 11/19/24 11/19/24 Allergies Allergy/AdvReac Type Severity Reaction Status Date / Time Penicillins AdvReac Intermediate Unknown Verified 11/19/24 15:40 Opioid HPI Opioid Management Most Recent Opioid Data: No Data to Display Review of Systems ROS Status of ROS 10 or more systems reviewed and unremarkable except as noted in history and below Exam Narrative Exam Narrative: Time Seen: [] Vital Signs: [Per nurse's notes.] General: [Alert] at baseline Skin: [Cool diaphoretic, no rash.] Head: Redness on the occipital area on the left small abrasion Neck: [Supple, trachea midline.] Eye: [Pupils are equal, round and reactive to light, extraocular movements are intact, normal conjunctiva.] Ears, nose, mouth and throat: oral mucosa dry Cardiovascular: [Tachycardia, no murmur.] Respiratory: [Moderate to severe respiratory distress. Tachypnea. Rhonchi and coarse breath sounds throughout. Rattling cough. Gastrointestinal: [Soft, nontender, non distended, normal bowel sounds.] Skin mottling across the abdomen MSK: Weakness x 4 extremities. No peripheral edema Psychiatric: [Cooperative, appropriate mood & affect.] Neurological: [Alert and oriented to normal baseline, no focal neurological deficit observed.] Constitutional Vital Signs, click to edit/add: Last Vital Signs Temp 98.1 F 11/19/24 15:40 Pulse 126 H 11/19/24 16:28 Resp 25 H 11/19/24 16:28 BP 161/103 H 11/19/24 15:40 Pulse Ox 96 11/19/24 16:28 O2 Del Method BIPAP 11/19/24 16:28 O2 Flow Rate 2 11/19/24 15:31 FiO2 35 11/19/24 16:28 Course Vital Signs Vital signs: Vital Signs Pulse Oximetry 93 L 11/19/24 15:31 Oxygen Delivery Method Nasal Cannula 11/19/24 15:31 Oxygen Delivery Flow Rate 2 11/19/24 15:31 Temperature 98.1 F 11/19/24 15:40 Pulse Rate 126 H 11/19/24 16:28 Respiratory Rate 25 H 11/19/24 16:28 Blood Pressure 161/103 H 11/19/24 15:40 Pulse Oximetry 96 11/19/24 16:28 Oxygen Delivery Method BIPAP 11/19/24 16:28 Oxygen Delivery Flow Rate 2 11/19/24 15:31 Fraction of Inspired Oxygen 35 11/19/24 16:28 Medical Decision Making MDM Narrative Medical decision making narrative: Patient will be admitted to the ICU for sepsis. Patient is requiring BiPAP for respiratory support. Patient's labs show a significantly elevated CPK consistent with rhabdo most likely because he was laying on the floor for day. Troponin is also elevated although the patient does not have any chest pain. Most likely the troponin is elevated because he is in rhabdo. Patient's chest x-ray looks like atelectasis versus pneumonia. Patient was covered with Vanco and Zosyn for sepsis most likely respiratory source. Patient also has MAHESH based on his creatinine elevation. Patient's been extremely short of breath and his lungs are very congested sounding. He is feeling better on the BiPAP with fluid resuscitation however I do not feel he is stable enough for the floor and he needs ICU. I spoke to Dr. Escalante who will admit the patient to the ICU and is agreeable with care plan. Patient comfortable with care plan for admission as well. Differential Diagnosis Differential Diagnosis: Sepsis flu COVID-pneumonia respiratory failure Lab Data Lab results reviewed: Yes I reviewed the patient's lab results Labs: Lab Results 11/19/24 11/19/24 Range/Units 15:45 16:04 WBC 33.9 H* (4.0-11.0) 10^3/uL RBC 6.44 H (4.70-6.10) 10^6/uL Hgb 18.5 H (14.0-18.0) g/dL Hct 56.6 H (42.0-54.0) % MCV 87.9 (80.0-94.0) fL MCH 28.7 (25.9-34.0) pg MCHC 32.7 (29.9-35.2) g/dL RDW 13.9 (11.0-15.0) % Plt Count 315 (150-450) 10^3/uL MPV 9.5 (9.5-13.5) fL Seg Neuts % (Manual) 90.0 H (43.0-75.0) Band Neutrophils % 2.0 (0-5) % Lymphocytes % (Manual) 3.0 L (20.5-60.0) % Monocytes % (Manual) 5.0 (1.7-12.0) % Eosinophils % (Manual) 0.0 L (0.9-7.0) % Basophils % (Manual) 0.0 L (0.2-2.0) % Neutrophils # (Manual) 30.51 H (1.4-6.5) 10^3/uL Band Neutrophils # 0.7 H (0.0-0.3) 10^3/uL Lymphocytes # (Manual) 1.01 L (1.20-3.80) 10^3/uL Monocytes # (Manual) 1.69 H (0.30-0.80) 10^3/uL Eosinophils # (Manual) 0.00 (0.00-0.70) 10^3/uL Basophils # (Manual) 0.00 (0.00-0.10) 10^3/uL Puncture Site R. radial ABG pH 7.362 (7.350-7.450) ABG pCO2 43.6 (35.0-45.0) mmHg ABG pO2 67.3 L (80.0-100.0) mmHg ABG HCO3 24.7 (22.0-26.0) mmol/L ABG O2 Saturation % ABG Base Excess -0.7 (-2.0-2.0) mmol/L Lloyd Test Positive (POSITIVE) O2 Liters/Min 3.5 Sodium 138 (136-145) mmol/L Potassium 3.8 (3.5-5.1) mmol/L Chloride 102 (98-107) mmol/L Carbon Dioxide 26.1 (21.0-32.0) mmol/L Anion Gap 13.7 BUN 39.0 H (7.0-18.0) mg/dL Creatinine 1.41 H (0.70-1.30) mg/dL Est GFR ( Amer) 59 L (>=60 mL/min/1.73m^2) Est GFR (Non-Af Amer) 48 L (>=60 mL/min/1.73m^2) BUN/Creatinine Ratio 27.7 Glucose 160 H (74-106) mg/dL Lactate 3.3 H* (0.4-2.0) mmol/L Calcium 9.3 (8.5-10.1) mg/dL Total Bilirubin 1.2 H (0.2-1.0) mg/dL AST 380 H (15-37) U/L ALT 117 H (16-63) U/L Alkaline Phosphatase 80 (46-116) U/L Total Creatine Kinase 99274 H* (39-308) U/L Troponin I High Sens 201.1 H* (4.0-76.1) pg/mL NT-Pro-B Natriuret Pep 1223.0 (<=1800.0) pg/mL Total Protein 6.6 (6.4-8.2) g/dL Albumin 3.0 L (3.4-5.0) g/dL Globulin 3.6 g/dL Albumin/Globulin Ratio 0.8 Imaging Data Chest x-ray: Radiologist's impression: ITS Impressions Chest X-Ray 11/19/24 15:31 IMPRESSION: Mild bibasilar atelectasis. Electronically authenticated by: SOCORRO HAWK Date: 11/19/2024 16:[address] 11/19/24 16:19 IMPRESSION: Negative for acute intracranial hemorrhage or acute intracranial process. Electronically authenticated by: TRINA RIVAS Date: 11/19/2024 16:47 Critical Care Time Critical Care Time Critical Care Time: Yes Total Critical Care Time: 89 Attestation: Sepsis, respiratory distress, hypoxia, acute kidney injury rhabdomyolysis Discharge Plan Discharge Chief Complaint: Shortness of Breath/Dyspnea Clinical Impression: Community acquired pneumonia, Sepsis, Acute respiratory distress, MAHESH (acute kidney injury), Rhabdomyolysis Patient Disposition: Admitted As Inpatient Time of Disposition Decision: 17:45 Condition: Serious Prescriptions / Home Meds: No Action donepezil 10 mg tablet 10 mg PO .QHS lisinopril-hydrochlorothiazide 20-25 mg tablet 1 tab PO DAILY pramipexole 0.5 mg tablet 0.5 mg PO DAILY pravastatin 40 mg tablet 40 mg PO DAILY ferrous sulfate [Daren-Time] 325 mg (65 mg iron) tablet 325 mg PO DAILY Print Language: Frisian Referrals: Atiya Hong MD [Primary Care Provider] - 1 week
[2024-11-19 16:32] LABS: White Blood Count 33.9 10^3/uL (4.0-11.0)
[2024-11-19] MEDS: 0.9 % SODIUM CHLORIDE 1,000 ML 1000 ML IV ×3 (16:32→21:16)
[2024-11-19 16:37] LABS: Band Neutrophils Absolute 0.7 10^3/uL (0.0-0.3); Lymphocytes Absolute Manual 1.01 10^3/uL (1.20-3.80); Monocytes Absolute Manual 1.69 10^3/uL (0.30-0.80); Segmented Neut Absolute Manual 30.51 10^3/uL (1.4-6.5)
[2024-11-19 16:44] LABS: Alanine Aminotransferase 117 U/L (16-63); Albumin Globulin Ratio 0.8; Alkaline Phosphatase 80 U/L (46-116); Anion Gap 13.7; Aspartate Amino Transferase 380 U/L (15-37); BUN Creatinine Ratio 27.7; Bilirubin Total 1.2 mg/dL (0.2-1.0); Calcium 9.3 mg/dL (8.5-10.1); Carbon Dioxide 26.1 mmol/L (21.0-32.0); Chloride 102 mmol/L (98-107); Estimated GFR (African America 59 (>=60 mL/min/1.73m^2); Estimated GFR (Non-African Ame 48 (>=60 mL/min/1.73m^2); Globulin 3.6 g/dL; Glucose 160 mg/dL (74-106); Potassium 3.8 mmol/L (3.5-5.1); Sodium 138 mmol/L (136-145); Total Protein 6.6 g/dL (6.4-8.2)
[2024-11-19 16:49] LABS: Creatine Kinase 10445 U/L (39-308)
[2024-11-19 16:50] LABS: Lactate/Lactic Acid 3.3 mmol/L (0.4-2.0); Troponin I High Sensitivity 201.1 pg/mL (4.0-76.1)
[2024-11-19] MEDS: PIPERACILLIN SODIUM/TAZOBACTAM 4.5 GM in 0.9 % SODIUM CHLORIDE 50 ML IV (17:23)
[2024-11-19] MEDS: VANCOMYCIN HCL 1,750 MG in 0.9 % SODIUM CHLORIDE 500 ML 250 MG IV (18:01)
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
--- NOTE | 2024-11-19 18:51 | PC.NURSE ---
1830 admitted to icu, bedside report obtained from er nurse. put on bipap per rt from [facility]. tolerating well. no family at bedside to assist with questions regarding admission.
--- NOTE | 2024-11-19 19:28 | CT_ITS ---
The [address] [address] Patient Name: MURPHY DE LA ROSA MRN: [id number] date: 1945 Sex: M Assigned Patient Location: ICU Current Patient Location: ICU Accession/Order Number: [id number] Exam Date: 11/19/2024 20:40 Report Date: 11/19/2024 23:06 At the request of: CAM BOBBY Procedure: CT abdomen pelvis wo con CT ABDOMEN/PELVIS WITHOUT IV CONTRAST. INDICATION: elevated lft COMPARISON: There are no other studies available for comparison. TECHNIQUE: Contiguous axial images were obtained from the lung bases to the pelvic floor without intravenous or oral contrast. Coronal and sagittal reformations are provided. FINDINGS: LOWER LUNGS: There is mild atelectasis in the lower lobes. LIVER/BILIARY TREE: No discrete lesion. No intrahepatic ductal dilatation. GALLBLADDER: Status post cholecystectomy.. CBD: Normal CBD. SPLEEN: Normal in size. PANCREAS: No appreciable peripancreatic fluid. No pancreatic ductal dilatation. No discrete lesion. ADRENALS: Normal. KIDNEYS: There are a few bilateral renal cysts measuring up to 1.6 cm. No hydronephrosis. No radiopaque calculus. STOMACH AND BOWEL: Stomach is unremarkable. No dilated bowel loops. No bowel wall thickening. Colonic diverticulosis. APPENDIX: Normal appendix. PERITONEAL CAVITY: No fluid. No fat stranding. ABDOMINAL WALL: No subcutaneous stranding. No subcutaneous fluid collection. LYMPH NODES: No mesenteric or retroperitoneal lymphadenopathy by CT criteria. ABDOMINAL AORTA: No aneurysm. PELVIS: No acute abnormality. MUSCULOSKELETAL: No acute osseous abnormality. CT/CT abdomen pelvis wo con IMPRESSION: No acute abnormality in the abdomen or pelvis. Electronically authenticated by: BOBO GONSALEZ Date: 11/19/2024 23:06
--- NOTE | 2024-11-19 19:33 | P.HP_ITS ---
HPI H&P: HPI History of Present Illness Chief complaint: fall,SEPSIS PNEUMONIA RHABDO Narrative: Pt had a fall 2 days before, squad came and set him up in, no radiating some low blood pressure at that time, day before admission, patient was on the toilet and slid off and and was unable to get up, he did not want to squad called at that time and laid there for approximately 24 hours. Patient finally presented to emergency room found to have sinus tachycardia and hypotension significant leukocytosis and pneumonia with acute rhabdomyolysis When I saw patient in the emergency room, he is resting comfortably in bed but mask was on, he states his breathing is better with the mask on. Blood pressure noted to be low at that time in the 70s over 50s. Discussed care with ER staff including the emergency room physician. Patient will be transferred up to the intensive care unit Opioid HPI Opioid Management Most Recent Pain and Opioid Data: No Data to Display Review of Systems ROS Status of ROS 10 or more systems reviewed and unremark able except as noted in history and below Meds Home Medications and Allergies Home Medications ?Medication ?Instructions ?Recorded ?Confirmed ?Type donepezil 10 mg tablet 10 mg PO .QHS 11/19/24 11/19/24 History ferrous sulfate 325 mg (65 mg 325 mg PO DAILY 11/19/24 11/19/24 History iron) tablet (Daren-Time) lisinopril 20 1 tab PO DAILY 11/19/24 11/19/24 History mg-hydrochlorothiazide 25 mg tablet pramipexole 0.5 mg tablet 0.5 mg PO DAILY 11/19/24 11/19/24 History pravastatin 40 mg tablet 40 mg PO DAILY 11/19/24 11/19/24 History Allergies Allergy/AdvReac Type Severity Reaction Status Date / Time Penicillins AdvReac Intermediate Unknown Verified 11/19/24 15:40 Exam Constitutional Vital Signs, click to edit/add: Last Vital Signs Temp 98.1 F 11/19/24 15:40 Pulse 124 H 11/19/24 18:50 Resp 24 H 11/19/24 18:50 BP 114/61 11/19/24 18:45 Pulse Ox 97 11/19/24 18:50 O2 Del Method BIPAP 11/19/24 16:28 O2 Flow Rate 2 11/19/24 15:31 FiO2 35 11/19/24 16:28 Documenting provider has reviewed patient's vital signs: yes Common normals: apparent distress (Moderate respiratory distress with conve rsational dyspnea) Chest Common normals: inspection of chest normal Respiratory Common normals: abnormal respiratory effort (Moderate respiratory distress, stational dyspnea) Auscultation: rhonchi and wheezes Cardio Common normals: regular rhythm; irregular rate Rate: tachycardic GI Common normals: Normal to inspection, nondistended, normoactive bowel sounds present and soft to palpation; tender (Diffuse tenderness somewhat in left lower side as well more prominent) Results Labs Labs: Short CBC 11/19/24 Range/Units 16:04 WBC 33.9 H* (4.0-11.0) 10^3/uL Hgb 18.5 H (14.0-18.0) g/dL Hct 56.6 H (42.0-54.0) % Plt Count 315 (150-450) 10^3/uL BMP 11/19/24 16:04 Sodium 138 Potassium 3.8 Chloride 102 Carbon Dioxide 26.1 BUN 39.0 H Creatinine 1.41 H Glucose 160 H Calcium 9.3 Cardiac Enzymes 11/19/24 Range/Units 16:04 Total Creatine Kinase 79593 H* (39-308) U/L Liver Function 11/19/24 Range/Units 16:04 Total Bilirubin 1.2 H (0.2-1.0) mg/dL AST 380 H (15-37) U/L ALT 117 H (16-63) U/L Alkaline Phosphatase 80 (46-116) U/L Albumin 3.0 L (3.4-5.0) g/dL ABG ABG results: 11/19/24 15:45 ABG pH 7.362 ABG pCO2 43.6 ABG pO2 67.3 L ABG HCO3 24.7 ABG O2 Saturation ABG Base Excess -0.7 Assessment and Plan Assessment and Plan (1) Community acquired pneumonia: (2) Sepsis: (3) Acute respiratory distress: Plan Admission findings: Patient with sinus tachycardia, respiratory distress, acute hypoxia requiring BiPAP ventilation with acute hypoxic respiratory failure, somewhat hypertensive on admission but then hypotensive later on, significant leukocytosis with lactic acidosis and acute rhabdomyolysis, and pneumonia resulting in severe sepsis Acute hypoxic respiratory failure secondary to pneumonia resulting in severe sepsis-IV antibiotics, BiPAP ventilation currently, continue with fluid resuscitation for the sepsis. Acute rhabdomyolysis-IV hydration should improve, monitor levels daily, kidney function already somewhat elevated from baseline History of hypertension-will hold off on blood pressure medications at the pre sent time Mild dementia-continue with home medications Hypercholesterolemia continue with home medications Admission status: Patient with severe sepsis secondary to pneumonia with acute hypoxic respiratory failure, medically necessary treatment will span 2 midnights. Inpatient status
[2024-11-19 20:48] LABS: Amylase 41 U/L (25-115); Magnesium 2.4 mg/dL (1.8-2.4)
[2024-11-19 20:57] LABS: Lactate/Lactic Acid 2.7 mmol/L (0.4-2.0)
[2024-11-19 21:08] LABS: INR 1.08; Partial Thromboplastin Time 29.4 sec (22.3-36.2); Prothrombin Time 11.4 sec (9.0-11.6)
[2024-11-19] MEDS: HYDROCORTISONE SODIUM SUCC PF 100 MG/2 ML VIAL IVP (21:17)
[2024-11-19] MEDS: PANTOPRAZOLE SODIUM 40 MG VIAL IV (21:18)
[2024-11-19 22:51] LABS: Bilirubin Urine NEGATIVE (NEGATIVE); Blood Urine LARGE (NEGATIVE); Clarity Urine SL CLOUDY (CLEAR); Glucose Urine UA NEGATIVE (NEGATIVE); Ketones Urine 15 mg/dL (NEGATIVE); Leukocyte Esterase Urine NEGATIVE (NEGATIVE); Nitrite Urine NEGATIVE (NEGATIVE); Protein Urine 30 mg/dL (NEG/TRACE); Specific Gravity Urine >=1.030 (1.005-1.025)
[2024-11-19 22:52] LABS: Color Urine DK YELLOW (YELLOW)
[2024-11-19 23:01] LABS: Bacteria Urine MODERATE #/HPF (NONE SEEN); Crystals Seen? None Seen #/HPF (None Seen); Mucus Urine SMALL (NONE SEEN); Squamous Epithelial Cell Urine FEW #/LPF (NONE/RARE)
[2024-11-19 23:02] LABS: Cast Seen? SEEN #/LPF (NONE SEEN); Coarse Granular Casts Urine FEW; Fine Granular Casts Urine FEW; Hyaline Casts Urine FEW; Urine Culture Indicated YES; White Blood Cell Casts Urine FEW
[2024-11-19] MEDS: LINEZOLID IN DEXTROSE 5% 600 MG/300 ML PIGGYBACK 300 MG IV (23:04)
[2024-11-19] MEDS: 0.9 % SODIUM CHLORIDE 1,000 ML 150 ML IV (23:35)
[2024-11-20] VITALS (103 sets, daily range): BP systolic 93–146; BP diastolic 63–89; PULSE 82–117; RESP 20–21; TEMP 36.6–37.3; O2SAT 92–99
[2024-11-20] MEDS: PIPERACILLIN SODIUM/TAZOBACTAM 3.375 GM in 0.9 % SODIUM CHLORIDE 50 ML IV ×3 (00:59→17:33)
[2024-11-20] MEDS: IPRATROPIUM/ALBUTEROL SULFATE 3 ML AMPUL.NEB IH ×4 (04:04→23:49)
[2024-11-20 05:43] LABS: Basophils Absolute Auto 0.1 10^3/uL (0.0-0.1); Basophils Percent Auto 0.2 % (0.2-2.0); Hematocrit 43.4 % (42.0-54.0); Hemoglobin 14.4 g/dL (14.0-18.0); Immature Granulocytes Pct Auto 0.4 % (0.0-0.5); Lymphocytes Percent Auto 4.1 % (20.5-60.0); Mean Corpuscular HGB Conc 33.2 g/dL (29.9-35.2); Mean Corpuscular Hemoglobin 28.8 pg (25.9-34.0); Mean Corpuscular Volume 86.8 fL (80.0-94.0); Mean Platelet Volume 9.3 fL (9.5-13.5); Monocytes Absolute Auto 1.4 10^3/uL (0.3-0.8); Monocytes Percent Auto 5.7 % (1.7-12.0); Neutrophils Absolute Auto 21.7 10^3/uL (1.4-6.5); Neutrophils Percent Auto 89.6 % (43.0-75.0); Platelet Count 254 10^3/uL (150-450); Red Cell Distribution Width 14.1 % (11.0-15.0); White Blood Count 24.2 10^3/uL (4.0-11.0)
[2024-11-20] MEDS: HYDROCORTISONE SODIUM SUCC PF 100 MG/2 ML VIAL IVP ×3 (05:48→21:10)
[2024-11-20] MEDS: 0.9 % SODIUM CHLORIDE 1,000 ML 150 ML IV ×2 (05:52→09:12)
[2024-11-20 06:01] LABS: Ammonia 38 umol/L (11-32)
[2024-11-20 06:17] LABS: Alanine Aminotransferase 86 U/L (16-63); Albumin Globulin Ratio 0.8; Albumin Level 2.1 g/dL (3.4-5.0); Alkaline Phosphatase 46 U/L (46-116); Anion Gap 8.3; Aspartate Amino Transferase 253 U/L (15-37); Bilirubin Total 0.7 mg/dL (0.2-1.0); Calcium 7.8 mg/dL (8.5-10.1); Carbon Dioxide 27.2 mmol/L (21.0-32.0); Chloride 111 mmol/L (98-107); Estimated GFR (African America >60 (>=60 mL/min/1.73m^2); Estimated GFR (Non-African Ame >60 (>=60 mL/min/1.73m^2); Globulin 2.6 g/dL; Glucose 136 mg/dL (74-106); Magnesium 2.2 mg/dL (1.8-2.4); Potassium 3.5 mmol/L (3.5-5.1); Sodium 143 mmol/L (136-145); Total Protein 4.7 g/dL (6.4-8.2)
[2024-11-20 06:38] LABS: Creatine Kinase 4191 U/L (39-308); Creatine Kinase MB 15.02 ng/mL (<=3.60); Myoglobin 873 ng/mL (16-96); Troponin I High Sensitivity 107.2 pg/mL (4.0-76.1)
[2024-11-20 06:40] LABS: Influenza Virus A Antigen Positive; Influenza Virus B Antigen Negative; Internal Control Within Normal Limits
[2024-11-20 06:40] LABS: Internal Control Within Normal Limits; SARS-CoV-2 Ag NEGATIVE (NEGATIVE)
--- NOTE | 2024-11-20 09:30 | CM.NOTE ---
Rounds made with Dr. Escalante, pt on BIPAP this am. RN will wean oxygen as tolerated. Plan of care discussed with pt. PT and OT will evaluate pt today for discharge planning.
--- NOTE | 2024-11-20 10:01 | P.PN_ITS ---
Progress Note: Subjective Subjective Interval history: History of BiPAP mask on, able to talk fairly clearly through it, still some significant conversational dyspnea Exam Constitutional Vital Signs, click to edit/add: Last Vital Signs Temp 98.6 F 11/20/24 09:22 Pulse 97 H 11/20/24 09:22 Resp 18 11/20/24 09:22 BP 114/72 11/20/24 09:22 Pulse Ox 97 11/20/24 09:22 O2 Del Method BIPAP 11/20/24 04:04 O2 Flow Rate 2 11/19/24 15:31 FiO2 35 11/20/24 07:45 Documenting provider has reviewed patient's vital signs: yes Common normals: apparent distress (Mild respiratory distress with conversational dyspnea) Chest Common normals: inspection of chest normal Respiratory Common normals: abnormal respiratory effort (Mild e respiratory distress, stational dyspnea) Auscultation: rhonchi (Last today) and wheezes (Less today but just had breathing treatment) Cardio Common normals: regular rhythm; irregular rate Rate: tachycardic GI Common normals: Normal to inspection, nondistended, normoactive bowel sounds present and soft to palpation; tender (Diffuse tenderness somewhat in left lower side as well more prominent) Progress Note: Objective Labs Labs: Short CBC 11/19/24 11/20/24 Range/Units 16:04 05:13 WBC 33.9 H* 24.2 H (4.0-11.0) 10^3/uL Hgb 18.5 H 14.4 (14.0-18.0) g/dL Hct 56.6 H 43.4 (42.0-54.0) % Plt Count 315 254 (150-450) 10^3/uL BMP 11/19/24 11/20/24 16:04 05:13 Sodium 138 143 Potassium 3.8 3.5 Chloride 102 111 H Carbon Dioxide 26.1 27.2 BUN 39.0 H 26.0 H Creatinine 1.41 H 0.84 Glucose 160 H 136 H Calcium 9.3 7.8 L Cardiac Enzymes 11/19/24 11/20/24 Range/Units 16:04 05:13 Total Creatine Kinase 38451 H* 4191 H* (39-308) U/L CK-MB (CK-2) 15.02 H* (<=3.60) ng/mL Liver Function 11/19/24 11/20/24 Range/Units 16:04 05:13 Total Bilirubin 1.2 H 0.7 (0.2-1.0) mg/dL AST 380 H 253 H (15-37) U/L ALT 117 H 86 H (16-63) U/L Alkaline Phosphatase 80 46 (46-116) U/L Albumin 3.0 L 2.1 L (3.4-5.0) g/dL Urine 11/19/24 Range/Units 22:30 Urine Color Dk yellow (YELLOW) Urine Clarity Sl cloudy (CLEAR) Urine pH 6.0 (5.0-9.0) Ur Specific [place] >=1.030 A (1.005-1.025) Urine Protein 30 A (NEG/TRACE) mg/dL Urine Glucose (UA) Negative (NEGATIVE) mg/dL Progress Note: A&P Assessment and Plan (1) Community acquired pneumonia: (2) Sepsis: (3) Acute respiratory distress: Plan Admission findings: Patient with sinus tachycardia, respiratory distress, acute hypoxia requiring BiPAP ventilation with acute hypoxic respiratory failure, somewhat hypertensive on admission but then hypotensive later on, significant leukocytosis with lactic acidosis and acute rhabdomyolysis, and pneumonia resulting in severe sepsis Acute hypoxic respiratory failure requiring BiPAP ventilation secondary to pneumonia resulting in severe sepsis-IV antibiotics, BiPAP ventilation currently, continue with fluid resuscitation for the sepsis., Try to wean BiPAP if possible Acute rhabdomyolysis-CPK and troponin are trending down History of hypertension-will hold off on blood pressure medications at the present time Mild dementia-continue with home medications Hypercholesterolemia continue with home medications Severe protein calorie malnutrition-diet management Abnormal urinalysis consistent with acute UTI-culture pending Hyperammonemia with mildly elevated liver function test but just barely elevated, continue to follow Admission status: Patient with severe sepsis secondary to pneumonia with acute hypoxic respiratory failure, medically necessary treatment will span 2 midnights. Inpatient status ? Urinary Catheter Management Urinary Catheter Management Urethral: Cath placed during this visit: yes Urethral indwelling: No Insertion date: 11/19/24 Insertion time: 22:30
[2024-11-20] MEDS: PRAMIPEXOLE 1 MG TABLET 0.5 MG PO (11:12)
[2024-11-20] MEDS: OSELTAMIVIR PHOSPHATE 75 MG CAPSULE PO ×2 (11:12→21:10)
[2024-11-20] MEDS: FERROUS SULFATE 325 MG TABLET PO (11:13)
[2024-11-20 11:24] LABS: A. calcoaceticus-baumannii Cpx NOT DETECTED (NOT DETECTE); Bacteroides fragilis NOT DETECTED (NOT DETECTE); Enterobacter cloacae complex NOT DETECTED (NOT DETECTE); Enterobacterales NOT DETECTED (NOT DETECTE); Enterococcus faecalis NOT DETECTED (NOT DETECTE); Enterococcus faecium NOT DETECTED (NOT DETECTE); Klebsiella aerogenes NOT DETECTED (NOT DETECTE); Listeria monocytogenes NOT DETECTED (NOT DETECTE); Staphylococcus lugdunensis NOT DETECTED (NOT DETECTE); Streptococcus agalactiae NOT DETECTED (NOT DETECTE); Streptococcus pneumoniae NOT DETECTED (NOT DETECTE); Streptococcus pyogenes NOT DETECTED (NOT DETECTE); Streptococcus spp. NOT DETECTED (NOT DETECTE)
[2024-11-20 11:25] LABS: Candida albicans NOT DETECTED (NOT DETECTE); Candida auris NOT DETECTED (NOT DETECTE); Candida glabrata NOT DETECTED (NOT DETECTE); Candida krusei NOT DETECTED (NOT DETECTE); Candida parapsilosis NOT DETECTED (NOT DETECTE); Candida tropicalis NOT DETECTED (NOT DETECTE); Cryptococcus neoformans/gattii NOT DETECTED (NOT DETECTE); Haemophilus influenzae NOT DETECTED (NOT DETECTE); Klebsiella pneumoniae group NOT DETECTED (NOT DETECTE); Neisseria meningitidis NOT DETECTED (NOT DETECTE); Proteus spp. NOT DETECTED (NOT DETECTE); Pseudomonas aeruginosa NOT DETECTED (NOT DETECTE); Salmonella spp. NOT DETECTED (NOT DETECTE); Serratia marcescens NOT DETECTED (NOT DETECTE); Stenotrophomonas maltophilia NOT DETECTED (NOT DETECTE)
--- NOTE | 2024-11-20 11:52 | CM.NOTE ---
Important Message From Medicare discussed with pt's , verbalizes understanding and signs paper. Original given to pt and copy placed on pt's chart.
--- NOTE | 2024-11-20 12:14 | XR_ITS ---
The [address] [address] Patient Name: MURPHY DE LA ROSA MRN: [id number] date: 1945 Sex: M Assigned Patient Location: ICU Current Patient Location: ICU Accession/Order Number: [id number] Exam Date: 11/20/2024 12:25 Report Date: 11/20/2024 13:09 At the request of: CAM BOBBY Procedure: XR chest 1V EXAMINATION: XR chest 1V HISTORY: follow up pneumonia COMPARISON: XR chest 11/19/2024, CT abdomen pelvis 11/19/2024 FINDINGS: LUNGS: Unexpanded lungs with complete obscuration of the lung bases. Suspect right infrahilar infiltrates. VASCULATURE: No increased pulmonary vasculature. PLEURA: No pneumothorax, effusion, or pleural thickening. CARDIAC: No cardiomegaly or cardiac silhouette abnormality. MEDIASTINUM: No visible mass or adenopathy. BONES: No fracture or visible bone lesion. OTHER: Negative. XR/XR chest 1V IMPRESSION: 1. Markedly underexpanded lungs which limits evaluation. 2. Suspect at least mild atelectasis or infiltrates within right infrahilar region. 3. CT abdomen pelvis performed yesterday included the lung bases and showed only a trace amount of atelectasis within lung bases. Electronically authenticated by: IOWNA DRIVER Date: 11/20/2024 13:09
--- NOTE | 2024-11-20 13:04 | ECG_ITS ---
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
--- NOTE | 2024-11-20 13:13 | ECG_ITS ---
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
[2024-11-20] MEDS: LINEZOLID IN DEXTROSE 5% 600 MG/300 ML PIGGYBACK 300 MG IV (13:15)
[2024-11-20 13:41] LABS: Troponin I High Sensitivity 76.2 pg/mL (4.0-76.1)
[2024-11-20 14:11] LABS: Source Blood; mecA/C NOT DETECTED (NOT DETECTE)
[2024-11-20 14:12] LABS: Staphylococcus spp. DETECTED (NOT DETECTE)
[2024-11-20 14:13] LABS: Staphylococcus epidermidis DETECTED (NOT DETECTE)
--- NOTE | 2024-11-20 15:27 | SWNOTE1 ---
Pt not able to particpate with therapy, SW to check on needs tomorrow. Pt was still on bipap. Pt does live at home with his .
[2024-11-20] MEDS: FUROSEMIDE 20 MG/2 ML VIAL IVP (15:39)
[2024-11-20 16:23] LABS: Troponin I High Sensitivity 71.4 pg/mL (4.0-76.1)
[2024-11-20] MEDS: ACETAMINOPHEN 500 MG TABLET 1000 MG PO (16:38)
[2024-11-20] MEDS: 0.9 % SODIUM CHLORIDE 1,000 ML 75 ML IV (17:29)
[2024-11-20 20:28] LABS: Troponin I High Sensitivity 60.6 pg/mL (4.0-76.1)
[2024-11-20] MEDS: PANTOPRAZOLE SODIUM 40 MG VIAL IV (21:10)
[2024-11-20] MEDS: DONEPEZIL HCL 10 MG TABLET PO (21:10)
[2024-11-21] VITALS (112 sets, daily range): BP systolic 107–151; BP diastolic 72–85; PULSE 67–141; RESP 20–28; TEMP 36.6–36.9; O2SAT 90–98
[2024-11-21] MEDS: LINEZOLID IN DEXTROSE 5% 600 MG/300 ML PIGGYBACK 300 MG IV ×2 (01:08→13:24)
[2024-11-21] MEDS: PIPERACILLIN SODIUM/TAZOBACTAM 3.375 GM in 0.9 % SODIUM CHLORIDE 50 ML IV ×3 (02:42→17:43)
[2024-11-21] MEDS: IPRATROPIUM/ALBUTEROL SULFATE 3 ML AMPUL.NEB IH ×5 (04:01→23:28)
[2024-11-21 04:53] LABS: Basophils Percent Auto 0.1 % (0.2-2.0); Hematocrit 42.8 % (42.0-54.0); Hemoglobin 13.9 g/dL (14.0-18.0); Immature Granulocytes Abs Auto 0.13 10^3/uL (0.00-0.03); Immature Granulocytes Pct Auto 0.7 % (0.0-0.5); Lymphocytes Absolute Auto 0.8 10^3/uL (1.2-3.8); Lymphocytes Percent Auto 4.3 % (20.5-60.0); Mean Corpuscular HGB Conc 32.5 g/dL (29.9-35.2); Mean Corpuscular Hemoglobin 28.4 pg (25.9-34.0); Mean Corpuscular Volume 87.5 fL (80.0-94.0); Mean Platelet Volume 9.2 fL (9.5-13.5); Monocytes Absolute Auto 0.9 10^3/uL (0.3-0.8); Monocytes Percent Auto 4.7 % (1.7-12.0); Neutrophils Absolute Auto 17.6 10^3/uL (1.4-6.5); Neutrophils Percent Auto 90.2 % (43.0-75.0); Platelet Count 236 10^3/uL (150-450); Red Blood Count 4.89 10^6/uL (4.70-6.10); Red Cell Distribution Width 14.1 % (11.0-15.0); White Blood Count 19.5 10^3/uL (4.0-11.0)
[2024-11-21] MEDS: HYDROCORTISONE SODIUM SUCC PF 100 MG/2 ML VIAL IVP (05:15)
[2024-11-21 05:25] LABS: Alanine Aminotransferase 83 U/L (16-63); Albumin Globulin Ratio 0.7; Albumin Level 1.9 g/dL (3.4-5.0); Alkaline Phosphatase 49 U/L (46-116); Anion Gap 11.1; Aspartate Amino Transferase 160 U/L (15-37); BUN Creatinine Ratio 32.5; Bilirubin Total 0.5 mg/dL (0.2-1.0); Calcium 8.3 mg/dL (8.5-10.1); Chloride 109 mmol/L (98-107); Estimated GFR (African America >60 (>=60 mL/min/1.73m^2); Estimated GFR (Non-African Ame >60 (>=60 mL/min/1.73m^2); Globulin 2.9 g/dL; Glucose 136 mg/dL (74-106); Magnesium 2.4 mg/dL (1.8-2.4); Potassium 3.1 mmol/L (3.5-5.1); Sodium 145 mmol/L (136-145); Total Protein 4.8 g/dL (6.4-8.2); Troponin I High Sensitivity 42.5 pg/mL (4.0-76.1)
[2024-11-21 05:31] LABS: Creatine Kinase 938 U/L (39-308); Myoglobin 297 ng/mL (16-96)
--- NOTE | 2024-11-21 05:48 | P.PN_ITS ---
Progress Note: Subjective Subjective Interval history: Saw patient on rounds this morning in the intensive care unit, patient states his breathing not significantly better, numbers figueredo though is improved, reviewed lab results with patient Exam Constitutional Vital Signs, click to edit/add: Last Vital Signs Temp 97.9 F 11/20/24 19:00 Pulse 96 H 11/21/24 05:17 Resp 41 H 11/21/24 05:17 BP 107/72 11/21/24 05:17 Pulse Ox 96 11/21/24 05:17 O2 Del Method BIPAP 11/21/24 04:03 O2 Flow Rate 2 11/19/24 15:31 FiO2 35 11/21/24 04:03 Documenting provider has reviewed patient's vital signs: yes Common normals: apparent distress (Mild respiratory distress with conversational dyspnea) Chest Common normals: inspection of chest normal Respiratory Common normals: abnormal respiratory effort (Mild e respiratory distress, stational dyspnea) Auscultation: rhonchi (Last today) and wheezes (Less today but just had breathing treatment) Cardio Common normals: regular rhythm; irregular rate Rate: tachycardic GI Common normals: Normal to inspection, nondistended, normoactive bowel sounds present and soft to palpation; tender (Diffuse tenderness somewhat in left lower side as well more prominent) Progress Note: Objective Labs Labs: Short CBC 11/21/24 Range/Units 04:35 WBC 19.5 H (4.0-11.0) 10^3/uL Hgb 13.9 L (14.0-18.0) g/dL Hct 42.8 (42.0-54.0) % Plt Count 236 (150-450) 10^3/uL BMP 11/20/24 11/21/24 05:13 04:35 Sodium 143 145 Potassium 3.5 3.1 L Chloride 111 H 109 H Carbon Dioxide 27.2 28.0 BUN 26.0 H 25.0 H Creatinine 0.84 0.77 Glucose 136 H 136 H Calcium 7.8 L 8.3 L Cardiac Enzymes 11/20/24 11/21/24 Range/Units 05:13 04:35 Total Creatine Kinase 4191 H* 938 H* (39-308) U/L CK-MB (CK-2) 15.02 H* 3.60 (<=3.60) ng/mL Liver Function 11/20/24 11/21/24 Range/Units 05:13 04:35 Total Bilirubin 0.7 0.5 (0.2-1.0) mg/dL AST 253 H 160 H (15-37) U/L ALT 86 H 83 H (16-63) U/L Alkaline Phosphatase 46 49 (46-116) U/L Albumin 2.1 L 1.9 L (3.4-5.0) g/dL Progress Note: A&P Assessment and Plan (1) Community acquired pneumonia: (2) Sepsis: (3) Acute respiratory distress: Plan Admission findings: Patient with sinus tachycardia, respiratory distress, acute hypoxia requiring BiPAP ventilation with acute hypoxic respiratory failure, somewhat hypertensive on admission but then hypotensive later on, significant leukocytosis with lactic acidosis and acute rhabdomyolysis, and pneumonia resulting in severe sepsis Acute hypoxic respiratory failure requiring BiPAP ventilation secondary to pneumonia resulting in severe sepsis-white blood cell count improving, chest x- ray also looks improved, Chest wall contusion resulting in acute minimally displaced sternal fracture and multiple rib fractures-this was discovered on CT scan this afternoon, case was discussed with [facility] trauma surgeon, reviewed although by her current plan of care, with numbers improving CK and troponins, hypoxia overall improving, she gave the option for being transferred but really stated nothing different would happen as he is continues to improve if condition deteriorates would recommend transfer to [facility] trauma service. At some point may need an echocardiogram. Patient on DVT prophylaxis, encourage use of his PEP therapy. Fluid overload-this is necessary from the resuscitation for his rhabdomyolysis, now need to mobilize that fluid. Give 1 dose of Lasix tonight 1 dose in the morning and can give further doses depending on need Acute rhabdomyolysis-CPK and troponin are trending down History of hypertension-will hold off on blood pressure medications at the present time Mild dementia-continue with home medications Hypercholesterolemia continue with home medications Severe protein calorie malnutrition-diet management Abnormal urinalysis consistent with acute UTI-culture pending Hyperammonemia with mildly elevated liver function test but just barely elevated, continue to follow Admission status: Patient with severe sepsis secondary to pneumonia with acute hypoxic respiratory failure, medically necessary treatment will span 2 midnights. Inpatient status ? Urinary Catheter Management Urinary Catheter Management Urethral: Cath placed during this visit: yes Urethral indwelling: No Insertion date: 11/19/24 Insertion time: 22:30
--- NOTE | 2024-11-21 05:56 | XR_ITS ---
The [address] [address] Patient Name: MURPHY DE LA ROSA MRN: [id number] date: 1945 Sex: M Assigned Patient Location: ICU Current Patient Location: ICU Accession/Order Number: [id number] Exam Date: 11/21/2024 06:38 Report Date: 11/21/2024 06:56 At the request of: CAM BOBBY Procedure: XR chest 1V EXAMINATION: XR chest 1V HISTORY: follow up pna COMPARISON: XR chest 11/20/2024 FINDINGS: LUNGS: Underexpanded lungs with mild stranding within right lung base. VASCULATURE: No increased pulmonary vasculature. PLEURA: No pneumothorax, effusion, or pleural thickening. CARDIAC: Obscured. MEDIASTINUM: No visible mass or adenopathy. BONES: No fracture or visible bone lesion. OTHER: Negative. XR/XR chest 1V IMPRESSION: 1. Markedly underexpanded lungs which limits evaluation. 2. Stable to minimal improvement in suspected mild right basilar infiltrates versus atelectasis. Electronically authenticated by: IWONA DRIVER Date: 11/21/2024 06:56
[2024-11-21] MEDS: 0.9 % SODIUM CHLORIDE 1,000 ML 75 ML IV (08:09)
[2024-11-21] MEDS: PROSTAT 15 GM PROTEIN/100 CAL 30 ML LIQUID PACKET PO ×2 (08:12→20:43)
[2024-11-21] MEDS: OSELTAMIVIR PHOSPHATE 75 MG CAPSULE PO ×2 (08:12→20:43)
[2024-11-21] MEDS: FERROUS SULFATE 325 MG TABLET PO (08:12)
[2024-11-21] MEDS: POTASSIUM CHLORIDE 10 MEQ ER TABLET PO ×2 (08:12→20:43)
[2024-11-21] MEDS: ENSURE HP 237 ML LIQUID PO ×2 (08:12→20:43)
--- NOTE | 2024-11-21 09:43 | CM.NOTE ---
Rounds made with Dr. Escalante, pt continues on BIPAP at this time and RN will attempt to wean as tolerated. PT and OT to evaluate pt today for further recommendations for discharge planning.
[2024-11-21] MEDS: METHYLPREDNISOLONE SOD SUCC PF 125 MG/2 ML VIAL 60 MG IVP ×3 (11:33→23:35)
--- NOTE | 2024-11-21 14:01 | SWNOTE1 ---
SW stopped in and spoke to pt and in room. Pt voiced he was feeling better. SW spoke with them about discharge planning. SW advised them that at this time therapy is recommending a short term rehab stay at SNF. 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 Pt and in agreement that if that is what is recommended then he will. They live in [place]. SW provided them with list from Medicare.gov. They would like SW to try [facility] first then [facility] second. JINNY called [facility] and she has to talk to the SW and check bed status. SW waiting to hear back.
--- NOTE | 2024-11-21 15:12 | CT_ITS ---
[address] [address] Patient Name: MURPHY DE LA ROSA MRN: [id number] date: 1945 Sex: M Assigned Patient Location: ICU Current Patient Location: ICU Accession/Order Number: [id number] Exam Date: 11/21/2024 15:22 Report Date: 11/21/2024 16:30 At the request of: CAM BOBBY Procedure: CT angio chest CTA CHEST. CLINICAL HISTORY: dyspnea COMPARISON: None available. TECHNIQUE: CT pulmonary angiogram. Initially, limited axial non-contrast images through chest obtained to establish proper bolus timing. Subsequently, contrast enhanced axial CT images were obtained through the chest. Axial, sagittal and coronal reformatted maximum intensity projection images and / or 3D volume rendered images created. FINDINGS: PULMONARY ARTERIES: No intraluminal filling defects within the central or segmental pulmonary arteries to suggest pulmonary embolism.. Normal RV:LV ratio (<1). AORTA: The thoracic aorta diameter is normal without aneurysm or dissection. LUNGS: There are airspace opacities in the lower lobes. There are trace bilateral pleural effusions.. No pneumothorax. LYMPH NODES: No enlarged mediastinal lymph nodes by CT criteria. HEART: Heart size is normal. No pericardial effusion. UPPER ABDOMEN: Images of the upper abdomen demonstrate no abnormality. MUSCULOSKELETAL: There is a mildly displaced fracture of the sternum. There are minimally displaced fractures of the left anterior third through seventh ribs and left lateral sixth rib. There are minimally displaced fracture of the left posterior fifth through seventh ribs. There are minimally displaced fracture of the left posterior lateral ninth and 10th ribs. There is a chronic appearing moderate to severe T4 vertebral body compression fracture. CT/CT angio chest IMPRESSION: 1. No pulmonary embolism. 2. Bilateral lower lobe airspace opacities which may represent atelectasis or pneumonia. Correlate clinically. 3. Multiple acute minimally displaced left rib fractures. No pneumothorax 4. Acute minimally displaced fracture of the sternum. No retrosternal hematoma. Correlate clinically. Electronically authenticated by: BOBO GONSALEZ Date: 11/21/2024 16:30
--- NOTE | 2024-11-21 15:35 | SWNOTE1 ---
[facility] has no openings, [facility] does not have an isolation room due to flu positive screen. SW updated pt and . SW let them know that no openings. SW explained that we will have to look at other facilities and the next closest is [facility] in [place]. SW is not sure they have openings. Pt's voiced she truly does not want to go that far. SW explained that due to insurance and facility availability we may not have an option. Pt's reluctant but agreeable for SW to check with [facility]. SW reached out to [facility], they do not have any openings. SW to [place] back with [facility] to see when they may have an opening.
--- NOTE | 2024-11-21 15:48 | SWNOTE1 ---
JINNY pulled up the [facility] website and it states that [facility], [facility], [facility], and [facility] in [place] are in network. JINNY called [facility] and nobody in admission is there at this time. JINNY called [facility] and they are now assisted living only, no more skilled. JINNY called [facility] and left message. JINNY called [facility] in [place] and left message. JINNY then sent referral to [facility] so they have it for the weekend or Sunday in case of an opening. SW to follow up Sunday.
[2024-11-21] MEDS: FUROSEMIDE 40 MG/4 ML VIAL IVP (16:08)
--- NOTE | 2024-11-21 17:32 | US_ITS ---
The [address] [address] Patient Name: MURPHY DE LA ROSA MRN: [id number] date: 1945 Sex: M Assigned Patient Location: ICU Current Patient Location: ICU Accession/Order Number: [id number] Exam Date: 11/21/2024 18:39 Report Date: 11/21/2024 20:47 At the request of: CAM BOBBY Procedure: US venous doppler LE BI ULTRASOUND OF THE BILATERAL LOWER EXTREMITY. HISTORY: dvt COMPARISON: None. TECHNIQUE: Duplex ultrasound of the deep venous system of both lower extremities using compression, color Doppler and spectral Doppler waveforms during augmentation. FINDINGS: RIGHT: The common femoral veins, greater saphenous veins, femoral veins and popliteal veins are patent. The posterior tibial and peroneal veins have normal color doppler flow and compress, without evidence of thrombosis. LEFT: The common femoral veins, greater saphenous veins, femoral veins and popliteal veins are patent. The posterior tibial and peroneal veins have normal color doppler flow and compress, without evidence of thrombosis. US/US venous doppler LE BI IMPRESSION: No deep venous thrombosis within the bilateral lower extremities. Electronically authenticated by: BOBO GONSALEZ Date: 11/21/2024 20:47
[2024-11-21] MEDS: KETOROLAC TROMETHAMINE 30 MG/ML VIAL 15 MG IVP ×2 (17:43→23:36)
[2024-11-21] MEDS: ENOXAPARIN SODIUM 40 MG/0.4 ML SYRINGE SUBQ (18:06)
[2024-11-21] MEDS: PANTOPRAZOLE SODIUM 40 MG VIAL IV (19:35)
[2024-11-21] MEDS: DONEPEZIL HCL 10 MG TABLET PO (20:43)
[2024-11-22] VITALS (78 sets, daily range): BP systolic 111–146; BP diastolic 70–95; PULSE 84–138; RESP 20; TEMP 36.4–36.8; O2SAT 89–94
[2024-11-22] MEDS: LINEZOLID IN DEXTROSE 5% 600 MG/300 ML PIGGYBACK 300 MG IV (01:44)
[2024-11-22] MEDS: PIPERACILLIN SODIUM/TAZOBACTAM 3.375 GM in 0.9 % SODIUM CHLORIDE 50 ML IV ×2 (03:02→08:15)
[2024-11-22] MEDS: IPRATROPIUM/ALBUTEROL SULFATE 3 ML AMPUL.NEB IH ×6 (03:54→23:14)
[2024-11-22] MEDS: FUROSEMIDE 40 MG/4 ML VIAL IVP (03:57)
[2024-11-22] MEDS: KETOROLAC TROMETHAMINE 30 MG/ML VIAL 15 MG IVP ×4 (05:27→23:13)
[2024-11-22] MEDS: METHYLPREDNISOLONE SOD SUCC PF 125 MG/2 ML VIAL 60 MG IVP ×4 (05:27→23:12)
[2024-11-22 05:48] LABS: Basophils Percent Auto 0.1 % (0.2-2.0); Hematocrit 41.9 % (42.0-54.0); Hemoglobin 13.7 g/dL (14.0-18.0); Immature Granulocytes Abs Auto 0.11 10^3/uL (0.00-0.03); Immature Granulocytes Pct Auto 0.7 % (0.0-0.5); Lymphocytes Absolute Auto 0.5 10^3/uL (1.2-3.8); Lymphocytes Percent Auto 3.5 % (20.5-60.0); Mean Corpuscular HGB Conc 32.7 g/dL (29.9-35.2); Mean Corpuscular Hemoglobin 28.2 pg (25.9-34.0); Mean Corpuscular Volume 86.4 fL (80.0-94.0); Mean Platelet Volume 9.4 fL (9.5-13.5); Monocytes Absolute Auto 0.6 10^3/uL (0.3-0.8); Neutrophils Absolute Auto 14.2 10^3/uL (1.4-6.5); Neutrophils Percent Auto 91.7 % (43.0-75.0); Platelet Count 267 10^3/uL (150-450); Red Blood Count 4.85 10^6/uL (4.70-6.10); Red Cell Distribution Width 13.9 % (11.0-15.0); White Blood Count 15.5 10^3/uL (4.0-11.0)
[2024-11-22 06:08] LABS: Alanine Aminotransferase 89 U/L (16-63); Albumin Globulin Ratio 0.7; Alkaline Phosphatase 49 U/L (46-116); Anion Gap 10.9; Aspartate Amino Transferase 112 U/L (15-37); BUN Creatinine Ratio 39.3; Bilirubin Total 0.6 mg/dL (0.2-1.0); Calcium 8.3 mg/dL (8.5-10.1); Carbon Dioxide 28.3 mmol/L (21.0-32.0); Chloride 108 mmol/L (98-107); Estimated GFR (African America >60 (>=60 mL/min/1.73m^2); Estimated GFR (Non-African Ame >60 (>=60 mL/min/1.73m^2); Glucose 156 mg/dL (74-106); Potassium 3.2 mmol/L (3.5-5.1); Sodium 144 mmol/L (136-145)
[2024-11-22] MEDS: PROSTAT 15 GM PROTEIN/100 CAL 30 ML LIQUID PACKET PO ×2 (08:15→21:07)
[2024-11-22] MEDS: POTASSIUM CHLORIDE 10 MEQ ER TABLET PO ×2 (08:15→21:06)
[2024-11-22] MEDS: FERROUS SULFATE 325 MG TABLET PO (08:15)
[2024-11-22] MEDS: ENSURE HP 237 ML LIQUID PO ×2 (08:15→21:07)
[2024-11-22] MEDS: OSELTAMIVIR PHOSPHATE 75 MG CAPSULE PO ×2 (08:15→21:06)
[2024-11-22] MEDS: CEFTRIAXONE 1,000 MG in 0.9 % SODIUM CHLORIDE 50 ML 100 MG IV (09:33)
[2024-11-22] MEDS: LEVOFLOXACIN IN DEXTROSE 5 % 750 MG/150 ML PREMIX 100 MG IV (10:04)
--- NOTE | 2024-11-22 10:52 | PT.DAILY ---
Physical Therapy Daily Note PT Daily Note/Assess Start: 11/22/24 10:41 Freq: Status: Active Protocol: Document 11/22/24 10:41 [id number] (Rec: 11/22/24 10:52 [id number]) Physical Therapy Daily Note/Assessment Time In/Time Out Time In 07:54 Time Out 08:14 Pain In Pain Level 6 Pain Out Pain Level 5 Subjective Subjective Per nursing, patient has fractured ribs and breast bone . Patient states he is to painful to get into the chair. Agreeable to bed ther ex. With nursing's encouragement patient agreeable to get into chair. Therapeutic Exercise Time Therapeutic Exercise 5 Minutes (minutes) Therapeutic Exercise 0 Units Therapeutic Exercise Treatment Therapeutic Exercise Supine ther ex to LEI LE to increase strength: ankle Treatment pumps, quad sets, AAROM for SLR, hip ABD and heel slides x10 reps. Therapeutic Activity Time Therapeutic Activity 15 Minutes (minutes) Therapeutic Activity 1 Units Therapeutic Activity Treatment Bed Mobility Ability Moderate Assist,2 Person Assist Chair Transfer Moderate Assist,2 Person Assist Ability Therapeutic Activity Supine to L sitting EOB with use of hand rail is MOD A Comments +2. Verbal cues to use extremities to assist. Sitting balance fair unchallenged, uses LEI UE for support. Sit>stand RW is MOD A +2. Verbal cues to advance LE and MOD A for RW management, ambulated ~3 feet with MIN A+1 and RW. Stand>sit MOD A +2, patient does not use UE to A with self lowering to chair. Tray placed in front of patient with breakfast, assisted with opening can of tomato juice. Call anton within reach. Total Physical Therapy Time Total Therapy 20 Minutes Total Physical 1 Therapy Units Summary Daily Note Summary Limited ambulation distance due to Vapotherm. Improved functional mobility with less assistance required during bed mobility. Patient limited in overall mobility due to pain.
--- NOTE | 2024-11-22 13:01 | PM.PN ---
Progress Note: Subjective Subjective Interval history: Patient stable this am. Less SOB and mild cough. C/o pain in chest and ribs with inspiration or cough. Afebrile. Labs improved. Normal appetite and no emesis or diarrhea. No palpitations. Continued weakness. Exam Constitutional Vital Signs, click to edit/add: Last Vital Signs Temp 97.8 F 11/22/24 08:00 Pulse 111 H 11/22/24 11:54 Resp 24 H 11/22/24 11:54 BP 119/74 11/22/24 08:00 Pulse Ox 94 L 11/22/24 10:29 O2 Del Method Nasal Cannula 11/22/24 10:29 O2 Flow Rate 3 11/22/24 10:29 FiO2 30 11/21/24 23:28 Documenting provider has reviewed patient's vital signs: yes Common normals: no apparent distress and alert HENMT Common normals: normocephalic Eye Common normals: PERRL and EOMs intact bilaterally Respiratory Common normals: normal respiratory effort and clear to auscultation bilaterally Cardio Common normals: regular rate, regular rhythm, no gallops, no murmurs and no rub GI Common normals: Normal to inspection, nondistended, normoactive bowel sounds present and non-tender Extremity Common normals: no pedal edema Progress Note: Objective Labs Labs: Short CBC 11/22/24 Range/Units 05:42 WBC 15.5 H (4.0-11.0) 10^3/uL Hgb 13.7 L (14.0-18.0) g/dL Hct 41.9 L (42.0-54.0) % Plt Count 267 (150-450) 10^3/uL BMP 11/22/24 05:42 Sodium 144 Potassium 3.2 L Chloride 108 H Carbon Dioxide 28.3 BUN 33.0 H Creatinine 0.84 Glucose 156 H Calcium 8.3 L Liver Function 11/22/24 Range/Units 05:42 Total Bilirubin 0.6 (0.2-1.0) mg/dL AST 112 H (15-37) U/L ALT 89 H (16-63) U/L Alkaline Phosphatase 49 (46-116) U/L Albumin 2.0 L (3.4-5.0) g/dL Progress Note: A&P Assessment and Plan (1) Community acquired pneumonia: (2) Sepsis: (3) Influenza A: (4) Rhabdomyolysis: (5) Acute hypoxic respiratory failure: (6) MAHESH (acute kidney injury): (7) Closed traumatic nondisplaced fracture of multiple ribs of left side with routine healing: (8) Closed fracture of sternum with routine healing: (9) Benign essential hypertension: (10) Fall in elderly patient: (11) Senile dementia: Plan Patient slowly improving. Continue steroids and breathing treatments. Change antibiotics to rocephin and levaquin. Continue toradol for pain and use ultram PRN. Continue PT for weakness. Urinary Catheter Management Urinary Catheter Management Urethral: Cath placed during this visit: yes Urethral indwelling: No Insertion date: 11/19/24 Insertion time: 22:30
[2024-11-22] MEDS: ENOXAPARIN SODIUM 40 MG/0.4 ML SYRINGE SUBQ (17:04)
[2024-11-22] MEDS: PANTOPRAZOLE SODIUM 40 MG VIAL IV (19:14)
[2024-11-22] MEDS: DONEPEZIL HCL 10 MG TABLET PO (21:06)
[2024-11-23] VITALS (34 sets, daily range): BP systolic 130–158; BP diastolic 80–95; PULSE 89–117; RESP 14; TEMP 36.4–36.9; O2SAT 85–94
[2024-11-23] MEDS: IPRATROPIUM/ALBUTEROL SULFATE 3 ML AMPUL.NEB IH ×6 (03:43→23:59)
[2024-11-23] MEDS: METHYLPREDNISOLONE SOD SUCC PF 125 MG/2 ML VIAL 60 MG IVP ×4 (05:32→23:49)
[2024-11-23] MEDS: KETOROLAC TROMETHAMINE 30 MG/ML VIAL 15 MG IVP ×4 (05:33→23:49)
[2024-11-23 05:55] LABS: Basophils Percent Auto 0.1 % (0.2-2.0); Hemoglobin 14.2 g/dL (14.0-18.0); Immature Granulocytes Abs Auto 0.21 10^3/uL (0.00-0.03); Immature Granulocytes Pct Auto 1.1 % (0.0-0.5); Lymphocytes Absolute Auto 0.7 10^3/uL (1.2-3.8); Lymphocytes Percent Auto 3.7 % (20.5-60.0); Mean Corpuscular Hemoglobin 28.6 pg (25.9-34.0); Mean Corpuscular Volume 86.7 fL (80.0-94.0); Mean Platelet Volume 9.4 fL (9.5-13.5); Monocytes Absolute Auto 0.9 10^3/uL (0.3-0.8); Monocytes Percent Auto 4.7 % (1.7-12.0); Neutrophils Absolute Auto 17.5 10^3/uL (1.4-6.5); Neutrophils Percent Auto 90.4 % (43.0-75.0); Platelet Count 317 10^3/uL (150-450); Red Blood Count 4.96 10^6/uL (4.70-6.10); Red Cell Distribution Width 13.9 % (11.0-15.0); White Blood Count 19.3 10^3/uL (4.0-11.0)
[2024-11-23 06:07] LABS: Alanine Aminotransferase 94 U/L (16-63); Albumin Globulin Ratio 0.8; Albumin Level 2.3 g/dL (3.4-5.0); Alkaline Phosphatase 50 U/L (46-116); Anion Gap 10.8; Aspartate Amino Transferase 82 U/L (15-37); BUN Creatinine Ratio 51.7; Bilirubin Total 0.7 mg/dL (0.2-1.0); Calcium 8.8 mg/dL (8.5-10.1); Carbon Dioxide 27.9 mmol/L (21.0-32.0); Chloride 109 mmol/L (98-107); Estimated GFR (African America >60 (>=60 mL/min/1.73m^2); Estimated GFR (Non-African Ame >60 (>=60 mL/min/1.73m^2); Globulin 2.9 g/dL; Glucose 154 mg/dL (74-106); Potassium 3.7 mmol/L (3.5-5.1); Sodium 144 mmol/L (136-145); Total Protein 5.2 g/dL (6.4-8.2)
[2024-11-23 06:18] LABS: Creatine Kinase 335 U/L (39-308); Myoglobin 286 ng/mL (16-96)
[2024-11-23] MEDS: FERROUS SULFATE 325 MG TABLET PO (08:13)
[2024-11-23] MEDS: ENSURE HP 237 ML LIQUID PO ×2 (08:13→21:08)
[2024-11-23] MEDS: POTASSIUM CHLORIDE 10 MEQ ER TABLET PO ×2 (08:13→21:08)
[2024-11-23] MEDS: PROSTAT 15 GM PROTEIN/100 CAL 30 ML LIQUID PACKET PO ×2 (08:13→21:08)
[2024-11-23] MEDS: OSELTAMIVIR PHOSPHATE 75 MG CAPSULE PO ×2 (08:13→21:08)
[2024-11-23] MEDS: CEFTRIAXONE 1,000 MG in 0.9 % SODIUM CHLORIDE 50 ML 100 MG IV (09:18)
[2024-11-23] MEDS: LEVOFLOXACIN IN DEXTROSE 5 % 750 MG/150 ML PREMIX 100 MG IV (10:03)
--- NOTE | 2024-11-23 11:02 | PM.PN ---
Progress Note: Subjective Subjective Interval history: Patient improved this am. Less SOB and mild cough. Pain in chest and ribs improved but still present with inspiration or cough. Toradol helps with pain. Afebrile. Labs continue to improved. Normal appetite and no emesis or diarrhea. No palpitations. Continued weakness. Exam Constitutional Vital Signs, click to edit/add: Last Vital Signs Temp 98.1 F 11/23/24 07:48 Pulse 114 H 11/23/24 09:56 Resp 21 H 11/23/24 09:56 BP 138/95 H 11/23/24 07:48 Pulse Ox 92 L 11/23/24 09:56 O2 Del Method Nasal Cannula 11/23/24 09:56 O2 Flow Rate 2 11/23/24 09:56 FiO2 30 11/23/24 09:56 Documenting provider has reviewed patient's vital signs: yes Common normals: no apparent distress, oriented x3 and alert HENMT Common normals: normocephalic Eye Common normals: PERRL and EOMs intact bilaterally Respiratory Common normals: normal respiratory effort Auscultation: rhonchi Cardio Common normals: regular rate, regular rhythm, no gallops, no murmurs and no rub GI Common normals: Normal to inspection, nondistended, normoactive bowel sounds present and non-tender Extremity Common normals: no pedal edema Progress Note: Objective Labs Labs: Short CBC 11/23/24 Range/Units 05:44 WBC 19.3 H (4.0-11.0) 10^3/uL Hgb 14.2 (14.0-18.0) g/dL Hct 43.0 (42.0-54.0) % Plt Count 317 (150-450) 10^3/uL BMP 11/23/24 05:44 Sodium 144 Potassium 3.7 Chloride 109 H Carbon Dioxide 27.9 BUN 46.0 H Creatinine 0.89 Glucose 154 H Calcium 8.8 Cardiac Enzymes 11/23/24 Range/Units 05:44 Total Creatine Kinase 335 H* (39-308) U/L Liver Function 11/23/24 Range/Units 05:44 Total Bilirubin 0.7 (0.2-1.0) mg/dL AST 82 H (15-37) U/L ALT 94 H (16-63) U/L Alkaline Phosphatase 50 (46-116) U/L Albumin 2.3 L (3.4-5.0) g/dL Progress Note: A&P Assessment and Plan (1) Community acquired pneumonia: (2) Sepsis: (3) Influenza A: (4) Rhabdomyolysis: (5) Acute hypoxic respiratory failure: (6) MAHESH (acute kidney injury): (7) Closed traumatic nondisplaced fracture of multiple ribs of left side with routine healing: (8) Closed fracture of sternum with routine healing: (9) Benign essential hypertension: (10) Fall in elderly patient: (11) Senile dementia: Plan Patient continues to slowly improve. SOB and cough improved and afebrile. Continue antibiotics, steroids, and breathing treatments. Pain tolerble with toradol. Continue PT. Labs continue to improve and encourage fluid intake. Continued weakness and continue PT/OT. Likely will need SNF when ready for discharge. Transfer to med/surg. Urinary Catheter Management Urinary Catheter Management Urethral: Cath placed during this visit: yes Urethral indwelling: No Insertion date: 11/19/24 Insertion time: 22:30
[2024-11-23] MEDS: METOPROLOL TARTRATE 25 MG TABLET PO ×2 (12:26→21:08)
[2024-11-23] MEDS: ENOXAPARIN SODIUM 40 MG/0.4 ML SYRINGE SUBQ (17:49)
[2024-11-23] MEDS: ACETAMINOPHEN 500 MG TABLET 1000 MG PO (20:24)
[2024-11-23] MEDS: DONEPEZIL HCL 10 MG TABLET PO (21:08)
[2024-11-23] MEDS: PANTOPRAZOLE SODIUM 40 MG VIAL IV (21:08)
--- NOTE | 2024-11-23 23:48 | PC.NURSE ---
left elbow skin tear.
[2024-11-24] VITALS (25 sets, daily range): BP systolic 116–167; BP diastolic 78–92; PULSE 80–117; RESP 14; TEMP 36.5–37.1; O2SAT 87–95
--- NOTE | 2024-11-24 01:37 | PC.NURSE ---
Patient bumped his left elbow on the siderail causing a small skin tear. area cleansed and tegaderm applied.
[2024-11-24] MEDS: IPRATROPIUM/ALBUTEROL SULFATE 3 ML AMPUL.NEB IH ×6 (03:54→23:42)
[2024-11-24 05:37] LABS: Basophils Absolute Auto 0.1 10^3/uL (0.0-0.1); Basophils Percent Auto 0.2 % (0.2-2.0); Hematocrit 42.4 % (42.0-54.0); Hemoglobin 13.9 g/dL (14.0-18.0); Immature Granulocytes Abs Auto 0.52 10^3/uL (0.00-0.03); Immature Granulocytes Pct Auto 2.6 % (0.0-0.5); Lymphocytes Absolute Auto 0.8 10^3/uL (1.2-3.8); Lymphocytes Percent Auto 3.9 % (20.5-60.0); Mean Corpuscular HGB Conc 32.8 g/dL (29.9-35.2); Mean Corpuscular Hemoglobin 28.7 pg (25.9-34.0); Mean Corpuscular Volume 87.4 fL (80.0-94.0); Mean Platelet Volume 9.4 fL (9.5-13.5); Monocytes Absolute Auto 0.8 10^3/uL (0.3-0.8); Monocytes Percent Auto 3.7 % (1.7-12.0); Neutrophils Absolute Auto 18.3 10^3/uL (1.4-6.5); Neutrophils Percent Auto 89.6 % (43.0-75.0); Platelet Count 337 10^3/uL (150-450); Red Blood Count 4.85 10^6/uL (4.70-6.10); White Blood Count 20.4 10^3/uL (4.0-11.0)
[2024-11-24 05:55] LABS: Alanine Aminotransferase 90 U/L (16-63); Albumin Globulin Ratio 0.9; Albumin Level 2.4 g/dL (3.4-5.0); Alkaline Phosphatase 45 U/L (46-116); Anion Gap 10.3; Aspartate Amino Transferase 64 U/L (15-37); BUN Creatinine Ratio 62.7; Bilirubin Total 0.7 mg/dL (0.2-1.0); Calcium 8.7 mg/dL (8.5-10.1); Carbon Dioxide 30.2 mmol/L (21.0-32.0); Chloride 110 mmol/L (98-107); Estimated GFR (African America >60 (>=60 mL/min/1.73m^2); Estimated GFR (Non-African Ame >60 (>=60 mL/min/1.73m^2); Globulin 2.7 g/dL; Glucose 144 mg/dL (74-106); Potassium 4.5 mmol/L (3.5-5.1); Sodium 146 mmol/L (136-145); Total Protein 5.1 g/dL (6.4-8.2)
[2024-11-24] MEDS: METHYLPREDNISOLONE SOD SUCC PF 125 MG/2 ML VIAL 60 MG IVP (05:57)
[2024-11-24] MEDS: KETOROLAC TROMETHAMINE 30 MG/ML VIAL 15 MG IVP ×2 (05:57→11:39)
[2024-11-24 06:06] LABS: Creatine Kinase 184 U/L (39-308); Myoglobin 208 ng/mL (16-96)
--- NOTE | 2024-11-24 08:48 | CM.NOTE ---
2nd Important message From Medicare discussed with pt, pt denies any questions or concerns.
[2024-11-24] MEDS: METOPROLOL TARTRATE 25 MG TABLET PO ×2 (09:00→20:08)
[2024-11-24] MEDS: PROSTAT 15 GM PROTEIN/100 CAL 30 ML LIQUID PACKET PO ×2 (09:00→20:08)
[2024-11-24] MEDS: ENSURE HP 237 ML LIQUID PO ×2 (09:00→20:08)
[2024-11-24] MEDS: POTASSIUM CHLORIDE 10 MEQ ER TABLET PO ×2 (09:00→20:08)
[2024-11-24] MEDS: FERROUS SULFATE 325 MG TABLET PO (09:00)
[2024-11-24] MEDS: OSELTAMIVIR PHOSPHATE 75 MG CAPSULE PO ×2 (09:00→20:08)
--- NOTE | 2024-11-24 09:03 | PM.PN ---
Progress Note: Subjective Subjective Interval history: Patient sitting up in chair this morning with upper respiratory wheeze. still SOB and mild cough. Pain in chest and ribs worse today but states his coughing is worse. Afebrile. Labs continue to improved. Normal appetite and no emesis or diarrhea. No palpitations. Continued weakness. Exam Narrative Exam Narrative: General: Patient is alert, and oriented to person, place and time with normal affect, proper hygiene Skin: many ecchymosis over forearms Head: atraumatic, acephalic Eyes: PERRLA, no nystagmus present, conjunctiva clear, no scleral icterus Ears: normal gross auditory acuity Heart: Normal rate and rhythm, no murmurs/rubs/gallops Lungs: audible wheezes and crackles Abdomen: Normal audible bowel sounds, no distension, No palpable masses, no organomegaly, no rebound/guarding/ or rigidity Musculoskeletal: no swelling bilateral lower extremities Neuro: CN II-X grossly intact Constitutional Vital Signs, click to edit/add: Last Vital Signs Temp 98.6 F 11/24/24 07:00 Pulse 112 H 11/24/24 08:00 Resp 20 11/24/24 07:00 BP 150/81 H 11/24/24 07:00 Pulse Ox 90 L 11/24/24 08:00 O2 Del Method Nasal Cannula 11/24/24 07:35 O2 Flow Rate 3 11/24/24 07:35 FiO2 30 11/23/24 09:56 Progress Note: Objective Labs Labs: Short CBC 11/24/24 Range/Units 05:06 WBC 20.4 H (4.0-11.0) 10^3/uL Hgb 13.9 L (14.0-18.0) g/dL Hct 42.4 (42.0-54.0) % Plt Count 337 (150-450) 10^3/uL BMP 11/24/24 05:06 Sodium 146 H Potassium 4.5 Chloride 110 H Carbon Dioxide 30.2 BUN 47.0 H Creatinine 0.75 Glucose 144 H Calcium 8.7 Cardiac Enzymes 11/24/24 Range/Units 05:06 Total Creatine Kinase 184 (39-308) U/L Liver Function 11/24/24 Range/Units 05:06 Total Bilirubin 0.7 (0.2-1.0) mg/dL AST 64 H (15-37) U/L ALT 90 H (16-63) U/L Alkaline Phosphatase 45 L (46-116) U/L Albumin 2.4 L (3.4-5.0) g/dL Progress Note: A&P Assessment and Plan (1) Community acquired pneumonia: Assessment and Plan: Continue on levaquin and rocephin, IV steroids. Continue opep, duonebs and oxygen therapy. His course is complicated by rib and sternal fractures which makes expectoration difficult. Qualifiers: Laterality: left Lung location: lower lobe of lung Qualified Code(s): J18.9 - Pneumonia, unspecified organism (2) Acute hypoxic respiratory failure: Assessment and Plan: secondary to #1. monitor oxygen saturations closely (3) Sepsis: Assessment and Plan: improving. Lactate normal, WBC's improving. Liver and renal function improving. Still requiring oxygen. Blood culture positive for staph species Qualifiers: Sepsis type: methicillin susceptible Staphylococcus aureus Sepsis acute organ dysfunction status: with acute organ dysfunction Severe sepsis acute organ dysfunction type: acute respiratory failure Acute respiratory failure type: with hypoxia Severe sepsis shock status: without septic shock Qualified Code(s): A41.01 - Sepsis due to Methicillin susceptible Staphylococcus aureus; R65.20 - Severe sepsis without septic shock; J96.01 - Acute respiratory failure with hypoxia (4) Influenza A: Assessment and Plan: will receive last dose of Tamiflu today. causing #1 (5) Rhabdomyolysis: Assessment and Plan: CK level down to normal range today, liver function and renal function improving Qualifiers: Rhabdomyolysis type: traumatic Encounter type: subsequent encounter Qualified Code(s): T79.6XXD - Traumatic ischemia of muscle, subsequent encounter (6) MAHESH (acute kidney injury): Assessment and Plan: UTI vs sepsis, Cr. 0.75 today (7) Closed traumatic nondisplaced fracture of multiple ribs of left side with routine healing: Assessment and Plan: will stop Toradol, Tramadol and add lidocaine patch and [place]. (8) Closed fracture of sternum with routine healing: Assessment and Plan: change pain medications to achieve better control Qualifiers: Sternal location: body of sternum Qualified Code(s): S22.22XD - Fracture of body of sternum, subsequent encounter for fracture with routine healing (9) Benign essential hypertension: Assessment and Plan: continue lisinopril/hctz (10) Fall in elderly patient: Assessment and Plan: pt/ot on board, will benefit from senior living (11) Senile dementia: Assessment and Plan: continue donepezil. (12) Acute cystitis without hematuria: Assessment and Plan: continue rocephin. Plan Patient is a full code Continue Lovenox for DVT prophylaxis Patient will require 1-2 more days of hospital necessary care Urinary Catheter Management Urinary Catheter Management Urethral: Cath placed during this visit: yes Urethral indwelling: No Insertion date: 11/19/24 Insertion time: 22:30
--- NOTE | 2024-11-24 09:18 | SWNOTE1 ---
SW reached out to [facility] to see if they have any openings now, waiting to hear back.
[2024-11-24] MEDS: CEFTRIAXONE 1,000 MG in 0.9 % SODIUM CHLORIDE 50 ML 100 MG IV (09:30)
--- NOTE | 2024-11-24 10:01 | SWNOTE1 ---
JINNY spoke to Robbie at [facility] and they will have a bed for patient. Once they have updates, they will start precert.
--- NOTE | 2024-11-24 10:01 | SWNOTE1 ---
SW notified outpatient case manager.
[2024-11-24] MEDS: LEVOFLOXACIN IN DEXTROSE 5 % 750 MG/150 ML PREMIX 100 MG IV (10:19)
--- NOTE | 2024-11-24 11:17 | SWNOTE1 ---
SW stopped in and spoke with pt and pt's . SW updated them in regards to the [facility] having an opening and they will start precert once they have therapy notes from today. Pt and voiced understanding.
--- NOTE | 2024-11-24 11:38 | PT.DAILY ---
Physical Therapy Daily Note PT Daily Note/Assess Start: 11/22/24 10:41 Freq: Status: Active Protocol: Document 11/24/24 11:26 [email or web address] (Rec: 11/24/24 11:38 [email or web address] [id number]) Physical Therapy Daily Note/Assessment Time In/Time Out Time In 11:14 Time Out 11:30 Pain In Pain N/A Pain Out Pain N/A Subjective Subjective Sitting in BS chair upon arrival. is visiting. Therapeutic Exercise Time Therapeutic Exercise 5 Minutes (minutes) Therapeutic Exercise 0 Units Therapeutic Exercise Treatment Therapeutic Exercise Seated bilat LE strengthening ex complete in BS chair Treatment at decreased pace. Needs occ vc to stay on task. Therapeutic Activity Time Therapeutic Activity 5 Minutes (minutes) Therapeutic Activity 1 Units Therapeutic Activity Treatment Bed Mobility Ability Moderate Assist Chair Transfer Minimum Assist,2 Person Assist Ability Therapeutic Activity Sit>stand to RW Tomasa+2 - takes 3 side steps and pivots Comments to commode. Uses commode. Sit>stand Tomasa+2. Static standing at RW while pericare is performed. Pt amb 3' to bed with Tomasa/CGA+2 for safety. Sit>supine ModA to advance LEs. Total assist of 2 to scoot pt up in bed. Pt left under care of nurse. Total Physical Therapy Time Total Therapy 10 Minutes Total Physical 1 Therapy Units Summary Daily Note Summary Improved transfer ability but cont to be weak. Would benefit from SNF to regain strength and endurance to return to PLOF.
--- NOTE | 2024-11-24 11:55 | CM.NOTE ---
Rounds made with Dr. Arriaza, no discharge today. Pt will go to [facility] for skilled therapy when medically stable for discharge.
--- NOTE | 2024-11-24 12:54 | SWNOTE1 ---
JINNY sent updated PT/OT, progress note, vitals, labs, and nursing notes to [facility]. [facility] started precert.
[2024-11-24] MEDS: LIDOCAINE 5% PATCH 1 PATCH TOPICAL (13:55)
[2024-11-24] MEDS: HYDROCODONE/ACET 5-325 MG TABLET 1 TAB PO (13:55)
[2024-11-24] MEDS: ENOXAPARIN SODIUM 40 MG/0.4 ML SYRINGE SUBQ (17:14)
[2024-11-24] MEDS: ACETAMINOPHEN 500 MG TABLET 1000 MG PO (20:08)
--- NOTE | 2024-11-24 20:15 | RESP.RT ---
Pt requested BIPAP on to sleep. BIPAP placed on patient by RT. Patient only wore mask for approximately 15 minutes then wanted it back off. Pt stated it is too loud. Encouraged patient to wear it while sleeping since he wears one at home. Pt still wanted it off and was placed back on 3L nasal cannula.
[2024-11-24] MEDS: PANTOPRAZOLE SODIUM 40 MG VIAL IV (20:29)
[2024-11-24] MEDS: DONEPEZIL HCL 10 MG TABLET PO (21:00)
[2024-11-25] VITALS (31 sets, daily range): BP systolic 131–168; BP diastolic 74–93; PULSE 63–131; RESP 14; TEMP 36.3–36.7; O2SAT 90–94; BMI 31.6
[2024-11-25] MEDS: IPRATROPIUM/ALBUTEROL SULFATE 3 ML AMPUL.NEB IH ×6 (03:51→23:22)
[2024-11-25 05:55] LABS: Hematocrit 45.2 % (42.0-54.0); Hemoglobin 14.8 g/dL (14.0-18.0); Mean Corpuscular HGB Conc 32.7 g/dL (29.9-35.2); Mean Corpuscular Hemoglobin 28.5 pg (25.9-34.0); Mean Corpuscular Volume 87.1 fL (80.0-94.0); Mean Platelet Volume 9.1 fL (9.5-13.5); Platelet Count 427 10^3/uL (150-450); Red Blood Count 5.19 10^6/uL (4.70-6.10)
[2024-11-25 06:14] LABS: Alanine Aminotransferase 86 U/L (16-63); Albumin Level 2.6 g/dL (3.4-5.0); Alkaline Phosphatase 48 U/L (46-116); Aspartate Amino Transferase 45 U/L (15-37); BUN Creatinine Ratio 56.3; Bilirubin Total 0.9 mg/dL (0.2-1.0); Calcium 8.7 mg/dL (8.5-10.1); Carbon Dioxide 28.5 mmol/L (21.0-32.0); Chloride 112 mmol/L (98-107); Estimated GFR (African America >60 (>=60 mL/min/1.73m^2); Estimated GFR (Non-African Ame >60 (>=60 mL/min/1.73m^2); Globulin 2.6 g/dL; Glucose 127 mg/dL (74-106); Potassium 4.5 mmol/L (3.5-5.1); Sodium 148 mmol/L (136-145); Total Protein 5.2 g/dL (6.4-8.2)
[2024-11-25 06:34] LABS: Creatine Kinase 106 U/L (39-308); Myoglobin 119 ng/mL (16-96)
[2024-11-25] MEDS: HYDROCODONE/ACET 5-325 MG TABLET 1 TAB PO (07:41)
--- NOTE | 2024-11-25 09:07 | PM.PN ---
Progress Note: Subjective Subjective Interval history: Patient is laying in bed today, mouth breathing and very short of breath with conversing. He notes pain in his ribs. He said he didn't sleep well last night. Diminished breath sounds and some congestion noted. Patient is on 4L NC. On and off Bipap at night. Jesica present at bedside this morning. I have discussed advance directives with patient and . He would like to be a DNRCCA. His also agreed. I have changed code status on the chart and filled out appropriate paperwork. Will check CXR, Mag, proBNP, and switch back from norco to Tramadol today. Also get ABG. Exam Narrative Exam Narrative: General: Patient is alert, and oriented to person, place and time, short of breath with conversing Skin: many ecchymosis over forearms Head: atraumatic, acephalic Eyes: PERRLA, no nystagmus present, conjunctiva clear, no scleral icterus Ears: normal gross auditory acuity Heart: Normal rate and rhythm, no murmurs/rubs/gallops Lungs: audible wheezes and crackles, worse than yesterday Abdomen: Normal audible bowel sounds, no distension, No palpable masses, no organomegaly, no rebound/guarding/ or rigidity Musculoskeletal: no swelling bilateral lower extremities Neuro: CN II-X grossly intact Constitutional Vital Signs, click to edit/add: Last Vital Signs Temp 98.1 F 11/25/24 07:53 Pulse 120 H 11/25/24 08:00 Resp 28 H 11/25/24 07:53 BP 165/74 H 11/25/24 07:53 Pulse Ox 93 L 11/25/24 07:53 O2 Del Method Nasal Cannula 11/25/24 07:53 O2 Flow Rate 4 11/25/24 07:53 FiO2 30 11/25/24 03:59 Progress Note: Objective Labs Labs: Short CBC 11/25/24 Range/Units 05:34 WBC 30.0 H (4.0-11.0) 10^3/uL Hgb 14.8 (14.0-18.0) g/dL Hct 45.2 (42.0-54.0) % Plt Count 427 (150-450) 10^3/uL BMP 11/25/24 05:34 Sodium 148 H Potassium 4.5 Chloride 112 H Carbon Dioxide 28.5 BUN 40.0 H Creatinine 0.71 Glucose 127 H Calcium 8.7 Cardiac Enzymes 11/25/24 Range/Units 05:34 Total Creatine Kinase 106 (39-308) U/L Liver Function 11/25/24 Range/Units 05:34 Total Bilirubin 0.9 (0.2-1.0) mg/dL AST 45 H (15-37) U/L ALT 86 H (16-63) U/L Alkaline Phosphatase 48 (46-116) U/L Albumin 2.6 L (3.4-5.0) g/dL Progress Note: A&P Assessment and Plan (1) Community acquired pneumonia: Assessment and Plan: Continue on levaquin and rocephin, IV steroids. Continue opep, duonebs and oxygen therapy. His course is complicated by rib and sternal fractures which makes expectoration difficult. repeat CXR today still shows bilateral infiltrates Qualifiers: Laterality: left Lung location: lower lobe of lung Qualified Code(s): J18.9 - Pneumonia, unspecified organism (2) Acute hypoxic respiratory failure: Assessment and Plan: secondary to #1. monitor oxygen saturations closely; ABG shows good compensation with normal PH. lower PO2, recommend trial of BIPAP now instead of just at night. (3) Sepsis: Assessment and Plan: improving. Lactate normal, WBC's improving. Liver and renal function improving. Still requiring oxygen. Blood culture positive for staph Hominis, sensitive to levaquin Qualifiers: Acute respiratory failure type: with hypoxia Sepsis acute organ dysfunction status: with acute organ dysfunction Sepsis type: methicillin susceptible Staphylococcus aureus Severe sepsis acute organ dysfunction type: acute respiratory failure Severe sepsis shock status: without septic shock Qualified Code(s): A41.01 - Sepsis due to Methicillin susceptible Staphylococcus aureus; R65.20 - Severe sepsis without septic shock; J96.01 - Acute respiratory failure with hypoxia (4) Influenza A: Assessment and Plan: completed Tamiflu (5) Rhabdomyolysis: Assessment and Plan: resolved. CK level normal. Qualifiers: Encounter type: subsequent encounter Rhabdomyolysis type: traumatic Qualified Code(s): T79.6XXD - Traumatic ischemia of muscle, subsequent encounter (6) MAHESH (acute kidney injury): Assessment and Plan: resolved. Cr. 0.71. (7) Closed traumatic nondisplaced fracture of multiple ribs of left side with routine healing: Assessment and Plan: stop norco, restart Tramadol, encourage OPEP (8) Closed fracture of sternum with routine healing: Assessment and Plan: see #7 Qualifiers: Sternal location: body of sternum Qualified Code(s): S22.22XD - Fracture of body of sternum, subsequent encounter for fracture with routine healing (9) Benign essential hypertension: Assessment and Plan: continue lisinopril/hctz (10) Fall in elderly patient: Assessment and Plan: pt/ot on board, will benefit from penitentiary (11) Senile dementia: Assessment and Plan: continue donepezil. (12) Acute cystitis without hematuria: Assessment and Plan: continue rocephin, urine culture negative Plan Patient is a full code Continue Lovenox for DVT prophylaxis Worsening respiratory status today, high chance for further decompensation, patient will require 1-2 more days of hospital necessary care Urinary Catheter Management Urinary Catheter Management Urethral: Cath placed during this visit: yes Urethral indwelling: No Insertion date: 11/19/24 Insertion time: 22:30
[2024-11-25] MEDS: PROSTAT 15 GM PROTEIN/100 CAL 30 ML LIQUID PACKET PO (09:53)
[2024-11-25] MEDS: POTASSIUM CHLORIDE 10 MEQ ER TABLET PO (09:54)
[2024-11-25] MEDS: ENSURE HP 237 ML LIQUID PO (09:54)
[2024-11-25] MEDS: CEFTRIAXONE 1,000 MG in 0.9 % SODIUM CHLORIDE 50 ML 100 MG IV (09:54)
[2024-11-25] MEDS: LIDOCAINE 5% PATCH 1 PATCH TOPICAL (09:54)
[2024-11-25] MEDS: METOPROLOL TARTRATE 25 MG TABLET PO (09:54)
[2024-11-25] MEDS: FERROUS SULFATE 325 MG TABLET PO (09:54)
--- NOTE | 2024-11-25 10:15 | CM.NOTE ---
Rounds made with Dr. Arriaza, pt has had a decline in condition. Pt has increased respirations and labored breathing. Discussed changes with pt and . Dr. Arriaza also discussed code status, both and pt in agreement with DNRCCA. Updated nurse on further testing.
--- NOTE | 2024-11-25 10:16 | REH.PTDLY ---
Physical Therapy Daily Note PT Daily Note/Assess Start: 11/22/24 10:41 Freq: Status: Active Protocol: Document 11/25/24 09:45 LURDES (Rec: 11/25/24 10:16 LURDES [id number]) Physical Therapy Daily Note/Assessment Time In 09:36 Time Out 09:44 Subjective Pt agreeable to therapy, fatigued. Complaining of rib pain Therapeutic Exercise 8 Minutes (minutes) Therapeutic Exercise 1 Units Therapeutic Exercise Instructed in B LE supine exs 10x ea with AP, QS, SLR, Treatment heel slides, hip abd slides for improved strength. Verbal and tactile cues needed for proper form. Total Therapy 8 Minutes Total Physical 1 Therapy Units Daily Note Summary Attempted to sit pt bedside, but pt starts complaining of rib pain and states he isn't getting up. Educated pt on log rolling to help prevent pain and offered assistance, but pt continues to state he can't due to pain. Min A to bring legs back into bed and pt agreeable to bed exs for improved strength. Pt will need SN[facility] stay [facility] due to limited mobility due to pain levels.
--- NOTE | 2024-11-25 10:53 | XR_ITS ---
The [address] [address] Patient Name: MURPHY DE LA ROSA MRN: [id number] date: 1945 Sex: M Assigned Patient Location: [place] Current Patient Location: [place] Accession/Order Number: [id number] Exam Date: 11/25/2024 11:05 Report Date: 11/25/2024 11:24 At the request of: PARK ROSARIO Procedure: XR chest 1V EXAMINATION: XR chest 1V HISTORY: shortness of breath COMPARISON: XR chest 11/21/2024 FINDINGS: LUNGS: Underexpanded lungs with mild opacities in lung bases partially obscuring the diaphragm margins. VASCULATURE: No increased pulmonary vasculature. PLEURA: No pneumothorax, effusion, or pleural thickening. CARDIAC: Partially obscured, but suspected to be within normal limits. MEDIASTINUM: No visible mass or adenopathy. BONES: Moderate to marked degenerative changes of the left glenohumeral joint. OTHER: Negative. XR/XR chest 1V IMPRESSION: 1. Low lung volume examination with mild-moderate bibasilar infiltrates versus atelectasis. Electronically authenticated by: IWONA DRIVER Date: 11/25/2024 11:24
[2024-11-25 11:17] LABS: Magnesium 2.5 mg/dL (1.8-2.4)
[2024-11-25] MEDS: LEVOFLOXACIN IN DEXTROSE 5 % 750 MG/150 ML PREMIX 100 MG IV (11:55)
--- NOTE | 2024-11-25 12:05 | OT.DAILY ---
Occupational Therapy Daily Note OT Inpatient Daily Visit Note Start: 11/20/24 12:10 Freq: Status: Active Protocol: Document 11/25/24 11:35 [id number] (Rec: 11/25/24 11:46 [id number]) OT Visit Details Time In/Time Out Time In 11:14 Time Out 11:26 OT Treatment Plan Subjective Subjective Pt not alert to self or place right now, present in room. Pt demonstrates SOB when speaking in full sentences. Will answer questions when asked. reports Pt's appetite is limited with intermittent confusion. Nursing staff has notified. Objective Objective Pt slightly confused and SOB in room. Lying supine in bed, Pt agreeable to complete self-care tasks. With set up of supplies Pt able to wash face and hair with tactile cues. Good UB awareness when following verbal instruction. With set up of supplies for oral hygiene, Pt able to open toothpaste container. Mod A placing toothpaste on tooth brush. Good sequencing of completing tasks. Requires extended time to complete task with accuracy with 1-3 VCs. Assessment Assessment Pt tolerated treatment well. Agreeable and cooperative. Continue OT POC. OT Dispatcher Service Or Work Timed Codes Self-Jail 12 Management minutes ( minutes) Self-Jail 1 Management units
[2024-11-25 12:21] LABS: ABG PCO2 41.7 mmHg (35.0-45.0); Allen Test POSITIVE (POSITIVE); Base Excess ABG 5.2 mmol/L (-2.0-2.0); HCO3 ABG 29.1 mmol/L (22.0-26.0); Oxygen Saturation ABG 93.7 %; PO2 ABG 63.5 mmHg (80.0-100.0); pH ABG 7.452 (7.350-7.450)
[2024-11-25 12:22] LABS: Liters per Minute 4; O2 Mode NC; Puncture Site L RAD
--- NOTE | 2024-11-25 13:35 | SWNOTE1 ---
Case management received call from pt's insurance and he is approved from 11/25-12/02. SW spoke to case management who rounds with doctor and pt has had a decline and no discharge today. SW to notify the [facility]. SW to verify with [facility] that precert is good through 12/02.
--- NOTE | 2024-11-25 15:06 | SWNOTE1 ---
JINNY spoke to Summer at [facility] and claudia noguera through 12/02. JINNY sent updates to [facility] and they are aware no discharge today.
[2024-11-25] MEDS: FUROSEMIDE 20 MG/2 ML VIAL IVP (15:59)
[2024-11-25] MEDS: ENOXAPARIN SODIUM 40 MG/0.4 ML SYRINGE SUBQ (18:35)
[2024-11-25] MEDS: METOPROLOL TARTRATE 5 MG/5 ML VIAL IVP (20:42)
[2024-11-25] MEDS: PANTOPRAZOLE SODIUM 40 MG VIAL IV (20:42)
[2024-11-26] VITALS (27 sets, daily range): BP systolic 96–127; BP diastolic 60–85; PULSE 81–267; RESP 14; TEMP 36.1–36.8; O2SAT 62–94
[2024-11-26] MEDS: METOPROLOL TARTRATE 5 MG/5 ML VIAL IVP (03:28)
[2024-11-26] MEDS: IPRATROPIUM/ALBUTEROL SULFATE 3 ML AMPUL.NEB IH ×6 (03:53→22:52)
[2024-11-26 05:23] LABS: Basophils Percent Auto 0.1 % (0.2-2.0); Eosinophils Percent Auto 0.1 % (0.9-7.0); Hematocrit 45.8 % (42.0-54.0); Immature Granulocytes Abs Auto 2.37 10^3/uL (0.00-0.03); Immature Granulocytes Pct Auto 8.8 % (0.0-0.5); Lymphocytes Absolute Auto 1.6 10^3/uL (1.2-3.8); Lymphocytes Percent Auto 6.1 % (20.5-60.0); Mean Corpuscular HGB Conc 32.8 g/dL (29.9-35.2); Mean Corpuscular Hemoglobin 28.7 pg (25.9-34.0); Mean Corpuscular Volume 87.7 fL (80.0-94.0); Mean Platelet Volume 9.2 fL (9.5-13.5); Monocytes Absolute Auto 1.9 10^3/uL (0.3-0.8); Monocytes Percent Auto 7.1 % (1.7-12.0); Neutrophils Absolute Auto 20.9 10^3/uL (1.4-6.5); Neutrophils Percent Auto 77.8 % (43.0-75.0); Platelet Count 413 10^3/uL (150-450); Red Blood Count 5.22 10^6/uL (4.70-6.10); Red Cell Distribution Width 14.2 % (11.0-15.0); White Blood Count 26.9 10^3/uL (4.0-11.0)
[2024-11-26 05:42] LABS: Alanine Aminotransferase 82 U/L (16-63); Albumin Globulin Ratio 0.9; Albumin Level 2.5 g/dL (3.4-5.0); Alkaline Phosphatase 56 U/L (46-116); Aspartate Amino Transferase 36 U/L (15-37); BUN Creatinine Ratio 42.5; Bilirubin Total 0.8 mg/dL (0.2-1.0); Calcium 8.8 mg/dL (8.5-10.1); Carbon Dioxide 31.7 mmol/L (21.0-32.0); Chloride 113 mmol/L (98-107); Estimated GFR (African America >60 (>=60 mL/min/1.73m^2); Estimated GFR (Non-African Ame >60 (>=60 mL/min/1.73m^2); Globulin 2.7 g/dL; Glucose 143 mg/dL (74-106); Potassium 4.7 mmol/L (3.5-5.1); Sodium 150 mmol/L (136-145); Total Protein 5.2 g/dL (6.4-8.2)
[2024-11-26 05:49] LABS: Creatine Kinase 40 U/L (39-308); Myoglobin 84 ng/mL (16-96)
[2024-11-26] MEDS: CEFTRIAXONE 1,000 MG in 0.9 % SODIUM CHLORIDE 50 ML 100 MG IV (09:02)
[2024-11-26] MEDS: 0.9 % SODIUM CHLORIDE 250 ML 10 ML IV (09:03)
[2024-11-26] MEDS: FERROUS SULFATE 325 MG TABLET PO (09:03)
[2024-11-26] MEDS: ENSURE HP 237 ML LIQUID PO ×2 (09:03→20:23)
[2024-11-26] MEDS: METOPROLOL TARTRATE 25 MG TABLET PO (09:03)
[2024-11-26] MEDS: POTASSIUM CHLORIDE 10 MEQ ER TABLET PO ×2 (09:03→20:24)
[2024-11-26] MEDS: LIDOCAINE 5% PATCH 1 PATCH TOPICAL (09:03)
--- NOTE | 2024-11-26 09:12 | PM.PN ---
Progress Note: Subjective Subjective Interval history: Patient is currently on BiPAP, opens eyes and says hi but appears very somnolent. is at bedside today. I have updated her on Chest X-ray findings, ABG findings and concern for his need and want for BIPAP. I discussed with her getting an echocardiogram today and a pulmonary consult. I have also discussed option for possible Hospice Care/evaluation as patient continues to decline despite our best efforts. She plans to discuss with her son who lives in [place] today. WBC's 26.9, Cr 0.80, normal ammonia today. Vitals stable, stable on BIPAP. Exam Narrative Exam Narrative: General: Patient is alert as opens eyes to name, but currently on BIPAP Skin: many ecchymosis over forearms Head: atraumatic, acephalic Eyes: PERRLA, no nystagmus present, conjunctiva clear, no scleral icterus Ears: normal gross auditory acuity Heart: Normal rate and rhythm, no murmurs/rubs/gallops Lungs: audible wheezes and crackles Abdomen: Normal audible bowel sounds, no distension, No palpable masses, no organomegaly, no rebound/guarding/ or rigidity Musculoskeletal: no swelling bilateral lower extremities Neuro: CN II-X grossly intact Constitutional Vital Signs, click to edit/add: Last Vital Signs Temp 97.0 F L 11/26/24 03:40 Pulse 115 H 11/26/24 08:09 Resp 16 11/26/24 08:09 BP 118/81 11/26/24 08:09 Pulse Ox 92 L 11/26/24 08:09 O2 Del Method BIPAP 11/26/24 08:09 O2 Flow Rate 35 11/26/24 03:40 FiO2 35 11/26/24 07:34 Progress Note: Objective Labs Labs: Short CBC 11/26/24 Range/Units 05:06 WBC 26.9 H (4.0-11.0) 10^3/uL Hgb 15.0 (14.0-18.0) g/dL Hct 45.8 (42.0-54.0) % Plt Count 413 (150-450) 10^3/uL BMP 11/26/24 05:06 Sodium 150 H Potassium 4.7 Chloride 113 H Carbon Dioxide 31.7 BUN 34.0 H Creatinine 0.80 Glucose 143 H Calcium 8.8 Cardiac Enzymes 11/26/24 Range/Units 05:06 Total Creatine Kinase 40 (39-308) U/L Liver Function 11/26/24 Range/Units 05:06 Total Bilirubin 0.8 (0.2-1.0) mg/dL AST 36 (15-37) U/L ALT 82 H (16-63) U/L Alkaline Phosphatase 56 (46-116) U/L Albumin 2.5 L (3.4-5.0) g/dL Progress Note: A&P Assessment and Plan (1) Community acquired pneumonia: Assessment and Plan: Continue on levaquin, stop rocephin and IV steroids. Continue opep, duonebs and oxygen therapy. His course is complicated by rib and sternal fractures which makes expectoration difficult and his clinical course difficult. Blood culture positive x 1 for Staph and sputum, urine cultures have been negative. He continues the need for BIPAP. completed treatment for influenza with tamiflu x 5 days. He has remained afebrile. Leukocytosis but still on steroids. Qualifiers: Laterality: left Lung location: lower lobe of lung Qualified Code(s): J18.9 - Pneumonia, unspecified organism (2) Acute hypoxic respiratory failure: Assessment and Plan: secondary to #1. monitor oxygen saturations closely; ABG shows good compensation with normal PH, continue BIPAP, BNP normal range, will check ECHO today. Did try dose of Lasix 20mg IV once yesterday and patient has had good urine output 1700 mL (3) Sepsis: Assessment and Plan: Blood culture positive for staph Hominis, sensitive to levaquin Qualifiers: Acute respiratory failure type: with hypoxia Sepsis acute organ dysfunction status: with acute organ dysfunction Sepsis type: methicillin susceptible Staphylococcus aureus Severe sepsis acute organ dysfunction type: acute respiratory failure Severe sepsis shock status: without septic shock Qualified Code(s): A41.01 - Sepsis due to Methicillin susceptible Staphylococcus aureus; R65.20 - Severe sepsis without septic shock; J96.01 - Acute respiratory failure with hypoxia (4) Influenza A: Assessment and Plan: completed Tamiflu (5) Rhabdomyolysis: Assessment and Plan: resolved. CK level normal. renal function normal Qualifiers: Encounter type: subsequent encounter Rhabdomyolysis type: traumatic Qualified Code(s): T79.6XXD - Traumatic ischemia of muscle, subsequent encounter (6) MAHESH (acute kidney injury): Assessment and Plan: resolved (7) Closed traumatic nondisplaced fracture of multiple ribs of left side with routine healing: Assessment and Plan: continue Tramadol (8) Closed fracture of sternum with routine healing: Assessment and Plan: continue tramadol Qualifiers: Sternal location: body of sternum Qualified Code(s): S22.22XD - Fracture of body of sternum, subsequent encounter for fracture with routine healing (9) Benign essential hypertension: Assessment and Plan: continue lisinopril/hctz (10) Fall in elderly patient: (11) Senile dementia: Assessment and Plan: continue donepezil. Plan Patient is a DNRCCA Continue Lovenox for DVT prophylaxis Discussion with today about possible Hospice Care/consult given patient's worsening status despite our best efforts. Pulmonary consult and Echo today. Urinary Catheter Management Urinary Catheter Management Urethral: Cath placed during this visit: yes Urethral indwelling: No Insertion date: 11/19/24 Insertion time: 22:30
[2024-11-26 09:47] LABS: Ammonia 23 umol/L (11-32)
[2024-11-26] MEDS: LEVOFLOXACIN IN DEXTROSE 5 % 750 MG/150 ML PREMIX 100 MG IV (10:30)
--- NOTE | 2024-11-26 10:49 | CA_ITS ---
Patient Name: MURPHY DE LA ROSA MR#: [id number] : 1945 Exam Date: 11/26/2024 Ordering Doctor: PARK ROSARIO . ECHOCARDIOGRAM REPORT PROCEDURE: CA ECHO DOPPLER COMPLETE INDICATIONS: Edema, SOB, sepsis, pneumonia COMPARISON: None. DESCRIPTION: COMPLETE ECHOCARDIOGRAM Real-time transthoracic echocardiography with 2D, M-mode, spectral and color flow Doppler performed. QUALITY: Technical quality was adequate. LEFT VENTRICLE: Normal chamber size. Mild concentric left ventricular hypertrophy. LV EF: Normal left ventricular ejection fraction, (>55%). DIASTOLIC: ATRIAL SEPTUM: LEFT ATRIUM: Normal chamber size. RIGHT ATRIUM: Normal chamber size. RIGHT VENTRICLE: Normal chamber size. Normal right ventricular systolic function. TRICUSPID VALVE: Normal mobility and thickness. No stenosis with trivial regurgitation. MITRAL VALVE: Normal mobility and thickness. No evidence of mitral valve stenosis. No mitral regurgitation. AORTIC VALVE: Normal trileaflet appearance. Mildly calcified aortic valve. Moderately diminished mobility. Doppler velocity suggest severe aortic valve stenosis. DVI 0.16, YE 0.67 cm2, mean gradient 34 mmHg, peak velocity 3.71 m/s. Stroke-volume 41 mL. No aortic regurgitation. AORTIC ROOT: Normal diameter and appearance, measuring 3.6 cm. Aortic arch is normal in size. PULMONIC VALVE: Not well visualized. PERICARDIUM: No evidence of pericardial effusion. IVC: Collapses with inspirations. IVC is normal in size. PLEURA: CONCLUSION: 1. Mild concentric left ventricular hypertrophy with normal systolic function. LVEF is estimated at 60%. 2. Normal right ventricular size and systolic function. 3. 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 Adult Echocardiography Procedure Report Left Ventricle LVEDD (3.7 - 5.6 cm): 4.33 cm LVESD (2.2 - 4.0 cm): 3.53 cm LVIVS thickness (0.6 - 1.2 cm): 1.12 cm LVPW thickness (0.5 - 1.0 cm): 1.23 cm e': 0.10 m/s LVOT Max Gradient: 1.47 mm[Hg] LVOT Area (cm2): 0.61 m/s Peak Velocity (LVOT): 0.61 m/s Mean Velocity (LVOT): 0.39 m/s LVOT Diameter 2.25 cm Left Atrium LA Volume Index (2D A2C): 28.80 ml/m2 Left Atrium Systolic Dimension: 3.30 cm Mitral Valve Mitral Valve E-Wave Peak Velocity: 0.82 m/s Right Ventricle Aorta AO Root Diam: 3.62 cm Aortic Valve AoV Area (Peak Enmanuel): 0.65 cm2, 0.68 cm2 AoV Area (VTI): 0.47 cm2, 0.62 cm2 Peak Velocity(Antegrade Flow): 3.57 m/s, 3.71 m/s Peak Gradient(Antegrade Flow): 50.88 mm[Hg], 55.02 mm[Hg] Mean Velocity(Antegrade Flow): 2.59 m/s, 2.74 m/s Mean Gradient(Antegrade Flow): 31.04 mm[Hg], 34.01 mm[Hg] Velocity Time Integral: 64.19 cm, 83.46 cm Tricuspid Valve Pulmonic Valve Right Atrium Right Atrium Systolic Pressure: 46.32 ml, 46.32 ml Dictated by: Orlando Mason M.D. on 11/27/2024 at 13:37 Approved by: Orlando Mason M.D. on 11/27/2024 at 13:44
--- NOTE | 2024-11-26 11:00 | PT.DAILY ---
Physical Therapy Daily Note PT Daily Note/Assess Start: 11/22/24 10:41 Freq: Status: Active Protocol: Document 11/26/24 10:55 CITLALLI (Rec: 11/26/24 11:00 SPANFALONE [id number]) Physical Therapy Daily Note/Assessment Time In/Time Out Time In 10:25 Time Out 10:35 Pain In Pain N/A Pain Out Pain N/A Subjective Subjective Pt now on Bipap. MANUEL Nova OKd bed level ex. Therapeutic Exercise Time Therapeutic Exercise 5 Minutes (minutes) Therapeutic Exercise 1 Units Therapeutic Exercise Treatment Therapeutic Exercise Supine AP, abduction slides, HS, QS, GS, 10x ea - pt Treatment reports exercises are causing him to feel like he needs to have a bowel movement. Therapeutic Activity Time Therapeutic Activity 3 Minutes (minutes) Therapeutic Activity 0 Units Therapeutic Activity Treatment Bed Mobility Ability Moderate Assist,2 Person Assist Therapeutic Activity ModA+2 to to get pt to roll to R side and maintain Comments sidelying while bed grimes is placed. Pt is left with call light, and present. Total Physical Therapy Time Total Therapy 8 Minutes Total Physical 1 Therapy Units Summary Daily Note Summary Limited session due to bowel urgency and bipap.
--- NOTE | 2024-11-26 12:29 | CM.NOTE ---
Rounds made with Dr. Arriaza, pt continues to require BIPAP to keep saturations greater than 90%. Dr. Arriaza will consult Dr. Drew for further recommendations. Dr. Arriaza did speak with again regarding decline in status and Hospice. will speak with her son after Dr. Drew consults with pt. and son will then make a decision moving forward.
--- NOTE | 2024-11-26 12:48 | PM.PLCN ---
History of Present Illness History of Present Illness Consult date: 11/26/24 Requesting physician: Peyton Arriaza Reason for consult: hypoxemia and pneumonia Chief complaint: fall,SEPSIS PNEUMONIA RHABDO Narrative: 79yo male being seen for ongoing hypoxemia. is main historian. Patient does not have a significant active pulmonary history - apparently he had asthma as a child and quit smoking years ago. He had an episode of bronchitis 01/2024 that was quite severe, but other than that, the denies that the patient is normally short of breath, nor takes any treatment for COPD or asthma. She notes over the last year he has not been as active moving around; his gait is becoming shuffling. She states he was worked up for it, but was never officially diagnosed with a cause. The patient fell ~11/17/2024. He refused any medical care until 11/19/2024 when EMS brought him in. He was found to be hypoxic and was placed on a BiPAP. Imaging revealed mild bibasilar infiltrates without pulmonary emboli; multiple acute-appearing rib fractures & sternal fracture were noted - no pneumothorax. Labs returned positive for influenza A. He was treated with Tamiflu. His pulmonary status was improving up until yesterday when he developed some worsening dyspnea. He was placed back on the BiPAP during the day and has been relatively dependent on it. He was able to tell me that his breathing was less labored with BiPAP use. ABGs have not shown any evidence of acute hypercapnic respiratory failure. CXR 11/25/2024 appears slightly worse with bibasilar atelectasis/infiltrates compared to 11/21/2024. Review of Systems ROS Status of ROS unobtainable due to medical condition (Limited d/t BiPAP and patient's dyspnea) Respiratory Reports: shortness of breath and pain on inspiration [facility] Medical History (Updated 11/26/24 @ 14:16 by Peyton Arriaza, DO) Acute cystitis without hematuria ?N30.00 - Acute cystitis without hematuria (ICD-10) Sternal fracture ?S22.20XA - Unspecified fracture of sternum, initial encounter for closed fracture (ICD-10) Acute respiratory distress ?R06.03 - Acute respiratory distress (ICD-10) Meds Home Medications and Allergies Home Medications ?Medication ?Instructions ?Recorded ?Confirmed ?Type donepezil 10 mg tablet 10 mg PO .QHS 11/19/24 11/19/24 History ferrous sulfate 325 mg (65 mg 325 mg PO DAILY 11/19/24 11/19/24 History iron) tablet (Daren-Time) lisinopril 20 1 tab PO DAILY 11/19/24 11/19/24 History mg-hydrochlorothiazide 25 mg tablet pramipexole 0.5 mg tablet 0.5 mg PO DAILY 11/19/24 11/19/24 History pravastatin 40 mg tablet 40 mg PO DAILY 11/19/24 11/19/24 History Allergies Allergy/AdvReac Type Severity Reaction Status Date / Time Penicillins AdvReac Intermediate Unknown Verified 11/19/24 15:40 Exam Constitutional Vital Signs, click to edit/add: Last Vital Signs Temp 97.0 F L 11/26/24 03:40 Pulse 114 H 11/26/24 12:00 Resp 16 11/26/24 11:30 BP 119/69 11/26/24 11:30 Pulse Ox 92 L 11/26/24 11:30 O2 Del Method BIPAP 11/26/24 11:30 O2 Flow Rate 35 11/26/24 03:40 FiO2 35 11/26/24 11:09 Other: Laying in bed. HENMT Other: Wearing BiPAP Chest Other: No obvious flail chest Decreased rise & fall with respirations Respiratory Other: Breathing is not labored on BiPAP Able to speak several words before taking a breath Breath sounds are diminished with faint scattered crackles No wheezes Cardio Other: Tachycardic with a regular rhythm GI Other: Appears unremarkable Other: Catheter Extremity Other: No significant BLE edema Neuro Other: No tremor or fasciculations Psych Other: Opens eyes to voice, but drifts back to sleep Results Laboratory Findings ABG, PT/INR, D-dimer: ABG ABG pH 7.452 (7.350-7.450) H 11/25/24 12:10 ABG pCO2 41.7 mmHg (35.0-45.0) 11/25/24 12:10 ABG pO2 63.5 mmHg (80.0-100.0) L 11/25/24 12:10 ABG O2 Saturation 93.7 % 11/25/24 12:10 PT/INR, D-dimer PT 11.4 sec (9.0-11.6) 11/19/24 20:15 INR 1.08 11/19/24 20:15 Abnormal lab findings: Abnormal Labs 11/19/24 11/19/24 11/19/24 15:45 15:53 16:04 WBC 33.9 H* RBC 6.44 H Hgb 18.5 H Hct 56.6 H MPV Neut % (Auto) Lymph % (Auto) Eos % (Auto) Baso % (Auto) Neut # (Auto) Lymph # (Auto) Davison # (Auto) Abs Immat Gran (auto) Seg Neuts % (Manual) 90.0 H Lymphocytes % (Manual) 3.0 L Monocytes % (Manual) Eosinophils % (Manual) 0.0 L Basophils % (Manual) 0.0 L Imm/Tot Granulo (auto) Neutrophils # (Manual) 30.51 H Band Neutrophils # 0.7 H Lymphocytes # (Manual) 1.01 L Monocytes # (Manual) 1.69 H ABG pH ABG pO2 67.3 L ABG HCO3 ABG Base Excess Sodium Potassium Chloride BUN 39.0 H Creatinine 1.41 H Est GFR ( Amer) 59 L Est GFR (Non-Af Amer) 48 L Glucose 160 H Lactate 3.3 H* Calcium Magnesium Total Bilirubin 1.2 H AST 380 H ALT 117 H Alkaline Phosphatase Ammonia Total Creatine Kinase 68224 H* CK-MB (CK-2) Myoglobin Troponin I High Sens 201.1 H* Total Protein Albumin 3.0 L Ur Specific [place] Urine Protein Urine Ketones Urine Occult Blood Urine RBC Urine WBC Ur Squamous Epith Cells Urine Bacteria Urine Casts Urine Mucus Influenza Type A Ag Staphylococcus sp PCR Detected A* Staph epidermidis (PCR) Detected A* 11/19/24 11/19/24 11/20/24 20:15 22:30 05:13 WBC 24.2 H RBC Hgb Hct MPV 9.3 L Neut % (Auto) 89.6 H Lymph % (Auto) 4.1 L Eos % (Auto) 0.0 L Baso % (Auto) Neut # (Auto) 21.7 H Lymph # (Auto) 1.0 L Davison # (Auto) 1.4 H Abs Immat Gran (auto) 0.10 H Seg Neuts % (Manual) Lymphocytes % (Manual) Monocytes % (Manual) Eosinophils % (Manual) Basophils % (Manual) Imm/Tot Granulo (auto) Neutrophils # (Manual) Band Neutrophils # Lymphocytes # (Manual) Monocytes # (Manual) ABG pH ABG pO2 ABG HCO3 ABG Base Excess Sodium Potassium Chloride 111 H BUN 26.0 H Creatinine Est GFR ( Amer) Est GFR (Non-Af Amer) Glucose 136 H Lactate 2.7 H* Calcium 7.8 L Magnesium Total Bilirubin AST 253 H ALT 86 H Alkaline Phosphatase Ammonia 38 H Total Creatine Kinase 4191 H* CK-MB (CK-2) 15.02 H* Myoglobin 873 H* Troponin I High Sens 107.2 H* Total Protein 4.7 L Albumin 2.1 L Ur Specific [place] >=1.030 A Urine Protein 30 A Urine Ketones 15 A Urine Occult Blood Large A Urine RBC 2-5 A Urine WBC 5-10 A Ur Squamous Epith Cells Few A Urine Bacteria Moderate A Urine Casts Seen A Urine Mucus Small A Influenza Type A Ag Staphylococcus sp PCR Staph epidermidis (PCR) 11/20/24 11/20/24 11/21/24 06:00 13:18 04:35 WBC 19.5 H RBC Hgb 13.9 L Hct MPV 9.2 L Neut % (Auto) 90.2 H Lymph % (Auto) 4.3 L Eos % (Auto) 0.0 L Baso % (Auto) 0.1 L Neut # (Auto) 17.6 H Lymph # (Auto) 0.8 L Davison # (Auto) 0.9 H Abs Immat Gran (auto) 0.13 H Seg Neuts % (Manual) Lymphocytes % (Manual) Monocytes % (Manual) Eosinophils % (Manual) Basophils % (Manual) Imm/Tot Granulo (auto) 0.7 H Neutrophils # (Manual) Band Neutrophils # Lymphocytes # (Manual) Monocytes # (Manual) ABG pH ABG pO2 ABG HCO3 ABG Base Excess Sodium Potassium 3.1 L Chloride 109 H BUN 25.0 H Creatinine Est GFR ( Amer) Est GFR (Non-Af Amer) Glucose 136 H Lactate Calcium 8.3 L Magnesium Total Bilirubin AST 160 H ALT 83 H Alkaline Phosphatase Ammonia Total Creatine Kinase 938 H* CK-MB (CK-2) Myoglobin 297 H* Troponin I High Sens 76.2 H Total Protein 4.8 L Albumin 1.9 L Ur Specific [place] Urine Protein Urine Ketones Urine Occult Blood Urine RBC Urine WBC Ur Squamous Epith Cells Urine Bacteria Urine Casts Urine Mucus Influenza Type A Ag Positive A Staphylococcus sp PCR Staph epidermidis (PCR) 11/22/24 11/23/24 11/24/24 05:42 05:44 05:06 WBC 15.5 H 19.3 H 20.4 H RBC Hgb 13.7 L 13.9 L Hct 41.9 L MPV 9.4 L 9.4 L 9.4 L Neut % (Auto) 91.7 H 90.4 H 89.6 H Lymph % (Auto) 3.5 L 3.7 L 3.9 L Eos % (Auto) 0.0 L 0.0 L 0.0 L Baso % (Auto) 0.1 L 0.1 L Neut # (Auto) 14.2 H 17.5 H 18.3 H Lymph # (Auto) 0.5 L 0.7 L 0.8 L Davison # (Auto) 0.9 H Abs Immat Gran (auto) 0.11 H 0.21 H 0.52 H Seg Neuts % (Manual) Lymphocytes % (Manual) Monocytes % (Manual) Eosinophils % (Manual) Basophils % (Manual) Imm/Tot Granulo (auto) 0.7 H 1.1 H 2.6 H Neutrophils # (Manual) Band Neutrophils # Lymphocytes # (Manual) Monocytes # (Manual) ABG pH ABG pO2 ABG HCO3 ABG Base Excess Sodium 146 H Potassium 3.2 L Chloride 108 H 109 H 110 H BUN 33.0 H 46.0 H 47.0 H Creatinine Est GFR ( Amer) Est GFR (Non-Af Amer) Glucose 156 H 154 H 144 H Lactate Calcium 8.3 L Magnesium Total Bilirubin AST 112 H 82 H 64 H ALT 89 H 94 H 90 H Alkaline Phosphatase 45 L Ammonia Total Creatine Kinase 335 H* CK-MB (CK-2) Myoglobin 286 H* 208 H Troponin I High Sens Total Protein 5.0 L 5.2 L 5.1 L Albumin 2.0 L 2.3 L 2.4 L Ur Specific [place] Urine Protein Urine Ketones Urine Occult Blood Urine RBC Urine WBC Ur Squamous Epith Cells Urine Bacteria Urine Casts Urine Mucus Influenza Type A Ag Staphylococcus sp PCR Staph epidermidis (PCR) 11/25/24 11/25/24 11/26/24 05:34 12:10 05:06 WBC 30.0 H 26.9 H RBC Hgb Hct MPV 9.1 L 9.2 L Neut % (Auto) 77.8 H Lymph % (Auto) 6.1 L Eos % (Auto) 0.1 L Baso % (Auto) 0.1 L Neut # (Auto) 20.9 H Lymph # (Auto) Davison # (Auto) 1.9 H Abs Immat Gran (auto) 2.37 H Seg Neuts % (Manual) 94.0 H Lymphocytes % (Manual) 2.0 L Monocytes % (Manual) 0.0 L Eosinophils % (Manual) 0.0 L Basophils % (Manual) 0.0 L Imm/Tot Granulo (auto) 8.8 H Neutrophils # (Manual) 28.20 H Band Neutrophils # Lymphocytes # (Manual) 0.60 L Monocytes # (Manual) 0.00 L ABG pH 7.452 H ABG pO2 63.5 L ABG HCO3 29.1 H ABG Base Excess 5.2 H Sodium 148 H 150 H Potassium Chloride 112 H 113 H BUN 40.0 H 34.0 H Creatinine Est GFR ( Amer) Est GFR (Non-Af Amer) Glucose 127 H 143 H Lactate Calcium Magnesium 2.5 H Total Bilirubin AST 45 H ALT 86 H 82 H Alkaline Phosphatase Ammonia Total Creatine Kinase CK-MB (CK-2) Myoglobin 119 H Troponin I High Sens Total Protein 5.2 L 5.2 L Albumin 2.6 L 2.5 L Ur Specific [place] Urine Protein Urine Ketones Urine Occult Blood Urine RBC Urine WBC Ur Squamous Epith Cells Urine Bacteria Urine Casts Urine Mucus Influenza Type A Ag Staphylococcus sp PCR Staph epidermidis (PCR) Diagnostic Findings Chest x-ray: report reviewed and image reviewed CT scan - chest: report reviewed and image reviewed Assessment and Plan Assessment and Plan (1) Influenza A: Assessment and Plan: 1. Influenza A pneumonia with secondary bacterial pneumonia. Difficult to sort out this case as he has been here since 11/19/2024 and I am seeing him for the first time on 11/26/2024. I appreciate the assistance Dr. Cristy Arriaza provided. The influenza A has been treated with Tamiflu. There continues to be evidence of bibasilar infiltrates, though it is difficult to tell if it is active infection vs. remnant inflammation, etc. He is currently on Levaquin. 2. Acute hypoxic respiratory failure. Initially aggravated by #1, but it continues to linger and is becoming slightly worse. Etiology is unclear as he has been treated for influenza and standard typical & atypical bacterial pneumonia. He has multiple acute rib fractures which may be affecting his thoracic pump directly, and if any pain, he may be breathing more shallow, promoting atelectasis. Pulmonary contusion is a possibility, but I believe this to be lower on the differential list - the inciting fall was 11/17/2024 - 9 days ago; typically symptoms should manifest sooner (e.g, 24-48 hours after the event). He had multiple acute issues the past week (e.g. severe sepsis, rhabdomyolysis) which may be contributing to weakness, or less likely, direct lung involvement (e.g. ARDS, but no evidence radiographically of it). CTA 11/20/2024 did not show any evidence of pulmonary emboli; he has been on prophylactic Lovenox since admission. The admits that he has been declining over the past year...all of these issues at once may simply have overwhelmed this 79yo individual and it simply may just be an extended amount of time until he improves. For now, the patient voices that he feels better with BiPAP. There does not seem to be any adverse effects from it, so I would continue secondary to comfort. There is no evidence of CO2 retention. 3. Multiple mildly-displaced left-sided traumatic rib fractures secondary to fall at home on 11/17/2024. Affecting left ribs 3-7, 9,10. Additionally, has a sternal fracture. These fractures are affecting his chest wall physiology/thoracic pump. No current evidence for flail chest or pneumothorax. 4. IRVING. He is on BiPAP @ [facility]. 5. Leukocytosis. Most consistent with systemic steroid use. 6. Obesity. BMI 31.6. Inducing a restrictive pulmonary physiology.
--- NOTE | 2024-11-26 14:09 | SWNOTE1 ---
Pt not medically stable for discharge, SW let [facility] know. No discharge today.
[2024-11-26] MEDS: ENOXAPARIN SODIUM 40 MG/0.4 ML SYRINGE SUBQ (17:07)
[2024-11-26] MEDS: PROSTAT 15 GM PROTEIN/100 CAL 30 ML LIQUID PACKET PO (20:23)
[2024-11-26] MEDS: PANTOPRAZOLE SODIUM 40 MG VIAL IV (20:23)
[2024-11-26] MEDS: DONEPEZIL HCL 10 MG TABLET PO (21:33)
[2024-11-27] VITALS (22 sets, daily range): BP systolic 107–122; BP diastolic 62–82; PULSE 63–120; TEMP 36.2–37.6; O2SAT 91–98
[2024-11-27] MEDS: IPRATROPIUM/ALBUTEROL SULFATE 3 ML AMPUL.NEB IH ×6 (03:57→23:19)
[2024-11-27 06:07] LABS: Basophils Absolute Auto 0.1 10^3/uL (0.0-0.1); Basophils Percent Auto 0.4 % (0.2-2.0); Eosinophils Absolute Auto 0.1 10^3/uL (0.0-0.7); Eosinophils Percent Auto 0.4 % (0.9-7.0); Hematocrit 40.9 % (42.0-54.0); Hemoglobin 13.4 g/dL (14.0-18.0); Immature Granulocytes Abs Auto 1.71 10^3/uL (0.00-0.03); Immature Granulocytes Pct Auto 7.2 % (0.0-0.5); Lymphocytes Absolute Auto 1.3 10^3/uL (1.2-3.8); Lymphocytes Percent Auto 5.3 % (20.5-60.0); Mean Corpuscular HGB Conc 32.8 g/dL (29.9-35.2); Mean Corpuscular Volume 88.5 fL (80.0-94.0); Mean Platelet Volume 8.9 fL (9.5-13.5); Monocytes Absolute Auto 1.6 10^3/uL (0.3-0.8); Monocytes Percent Auto 6.8 % (1.7-12.0); Neutrophils Absolute Auto 19.1 10^3/uL (1.4-6.5); Neutrophils Percent Auto 79.9 % (43.0-75.0); Platelet Count 353 10^3/uL (150-450); Red Blood Count 4.62 10^6/uL (4.70-6.10); Red Cell Distribution Width 14.5 % (11.0-15.0); White Blood Count 23.9 10^3/uL (4.0-11.0)
[2024-11-27 06:24] LABS: Alanine Aminotransferase 62 U/L (16-63); Albumin Globulin Ratio 0.8; Alkaline Phosphatase 51 U/L (46-116); Anion Gap 10.1; Aspartate Amino Transferase 24 U/L (15-37); BUN Creatinine Ratio 34.2; Bilirubin Total 0.7 mg/dL (0.2-1.0); Calcium 8.4 mg/dL (8.5-10.1); Carbon Dioxide 30.2 mmol/L (21.0-32.0); Chloride 112 mmol/L (98-107); Estimated GFR (African America >60 (>=60 mL/min/1.73m^2); Estimated GFR (Non-African Ame >60 (>=60 mL/min/1.73m^2); Globulin 2.6 g/dL; Glucose 126 mg/dL (74-106); Potassium 4.3 mmol/L (3.5-5.1); Sodium 148 mmol/L (136-145); Total Protein 4.6 g/dL (6.4-8.2)
[2024-11-27] MEDS: LIDOCAINE 5% PATCH 1 PATCH TOPICAL (08:40)
[2024-11-27] MEDS: POTASSIUM CHLORIDE 10 MEQ ER TABLET PO ×2 (08:41→20:28)
[2024-11-27] MEDS: ENSURE HP 237 ML LIQUID PO ×2 (08:41→20:16)
[2024-11-27] MEDS: METOPROLOL TARTRATE 25 MG TABLET PO ×2 (08:41→20:28)
[2024-11-27] MEDS: ACETAMINOPHEN 500 MG TABLET 1000 MG PO (08:41)
[2024-11-27] MEDS: FERROUS SULFATE 325 MG TABLET PO (08:41)
[2024-11-27] MEDS: PROSTAT 15 GM PROTEIN/100 CAL 30 ML LIQUID PACKET PO ×2 (08:41→20:17)
--- NOTE | 2024-11-27 08:49 | PM.PN ---
Progress Note: Subjective Subjective Interval history: Patient is currently on Vapotherm. He is alert today and answering questions appropriately. Minimal rib pain. No fevers, no chills, no n/v/d. Pulmonology consult yesterday, nothing new to add. Agreed with BIPAP, I have updated at bedside. Exam Narrative Exam Narrative: General: Patient is alert as opens eyes to name, but currently on BIPAP Skin: many ecchymosis over forearms Head: atraumatic, acephalic Eyes: PERRLA, no nystagmus present, conjunctiva clear, no scleral icterus Ears: normal gross auditory acuity Heart: Normal rate and rhythm, no murmurs/rubs/gallops Lungs: audible wheezes and crackles Abdomen: Normal audible bowel sounds, no distension, No palpable masses, no organomegaly, no rebound/guarding/ or rigidity Musculoskeletal: no swelling bilateral lower extremities Neuro: CN II-X grossly intact Constitutional Vital Signs, click to edit/add: Last Vital Signs Temp 98.1 F 11/27/24 08:00 Pulse 112 H 11/27/24 08:00 Resp 20 11/27/24 08:00 BP 116/70 11/27/24 08:00 Pulse Ox 91 L 11/27/24 08:00 O2 Del Method Vapotherm 11/27/24 08:00 O2 Flow Rate 40 11/27/24 07:31 FiO2 60 11/27/24 07:31 Progress Note: Objective Labs Labs: Short CBC 11/27/24 Range/Units 05:34 WBC 23.9 H (4.0-11.0) 10^3/uL Hgb 13.4 L (14.0-18.0) g/dL Hct 40.9 L (42.0-54.0) % Plt Count 353 (150-450) 10^3/uL BMP 11/27/24 05:34 Sodium 148 H Potassium 4.3 Chloride 112 H Carbon Dioxide 30.2 BUN 25.0 H Creatinine 0.73 Glucose 126 H Calcium 8.4 L Liver Function 11/27/24 Range/Units 05:34 Total Bilirubin 0.7 (0.2-1.0) mg/dL AST 24 (15-37) U/L ALT 62 (16-63) U/L Alkaline Phosphatase 51 (46-116) U/L Albumin 2.0 L (3.4-5.0) g/dL Progress Note: A&P Assessment and Plan (1) Community acquired pneumonia: Assessment and Plan: Continue on levaquin, Continue opep, duonebs and oxygen therapy. His course is complicated by rib and sternal fractures which makes expectoration difficult and his clinical course difficult. Blood culture positive x 1 for Staph and sputum, urine cultures have been negative. He continues the need for BIPAP. completed treatment for influenza Qualifiers: Laterality: left Lung location: lower lobe of lung Qualified Code(s): J18.9 - Pneumonia, unspecified organism (2) Acute hypoxic respiratory failure: Assessment and Plan: secondary to #1. monitor oxygen saturations closely, BIPAP as needed; echo results still pending (3) Influenza A: Assessment and Plan: completed Tamiflu (4) Rhabdomyolysis: Assessment and Plan: resolved Qualifiers: Encounter type: subsequent encounter Rhabdomyolysis type: traumatic Qualified Code(s): T79.6XXD - Traumatic ischemia of muscle, subsequent encounter (5) MAHESH (acute kidney injury): Assessment and Plan: resolved (6) Closed traumatic nondisplaced fracture of multiple ribs of left side with routine healing: Assessment and Plan: continue pain control with lidocaine patch and tramadol (7) Closed fracture of sternum with routine healing: Assessment and Plan: continue pain control with lidocaine patch and tramadol Qualifiers: Sternal location: body of sternum Qualified Code(s): S22.22XD - Fracture of body of sternum, subsequent encounter for fracture with routine healing (8) Benign essential hypertension: Assessment and Plan: continue lisinopril/hctz (9) Senile dementia: Assessment and Plan: continue donepezil (10) Severe protein-calorie malnutrition: Assessment and Plan: continue supplements Plan Patient is a DNRCCA Continue Lovenox for DVT prophylaxis Urinary Catheter Management Urinary Catheter Management Urethral: Cath placed during this visit: yes Urethral indwelling: No Insertion date: 11/19/24 Insertion time: 22:30
[2024-11-27 10:39] LABS: Magnesium 2.3 mg/dL (1.8-2.4)
--- NOTE | 2024-11-27 11:21 | CM.NOTE ---
Rounds made with Dr. Arriaza. Dr. Arriaza reviews findings and plan of care. Mr. Mueller verbalizes understanding.
[2024-11-27] MEDS: LEVOFLOXACIN IN DEXTROSE 5 % 750 MG/150 ML PREMIX 100 MG IV (11:27)
--- NOTE | 2024-11-27 12:59 | SWNOTE1 ---
Updated progress notes, PT/OT, labs, vitals, nursing notes, and pulmonary consult sent to [facility]. Pt is still on high flow, no discharge today.
[2024-11-27 15:26] LABS: C. Difficile PCR NEGATIVE
[2024-11-27] MEDS: ENOXAPARIN SODIUM 40 MG/0.4 ML SYRINGE SUBQ (17:38)
[2024-11-27] MEDS: NYSTATIN 15 GM POWDER 1 APPLIC TOPICAL (20:16)
[2024-11-27] MEDS: TRAMADOL HCL 50 MG TABLET PO (20:17)
[2024-11-27] MEDS: PANTOPRAZOLE SODIUM 40 MG VIAL IV (20:27)
[2024-11-27] MEDS: DONEPEZIL HCL 10 MG TABLET PO (21:10)
[2024-11-28] VITALS (22 sets, daily range): BP systolic 112–126; BP diastolic 72–81; PULSE 72–124; TEMP 36.8–37.7; O2SAT 88–94
[2024-11-28] MEDS: IPRATROPIUM/ALBUTEROL SULFATE 3 ML AMPUL.NEB IH ×5 (04:00→22:34)
[2024-11-28 06:06] LABS: Hematocrit 40.6 % (42.0-54.0); Hemoglobin 12.8 g/dL (14.0-18.0); Mean Corpuscular HGB Conc 31.5 g/dL (29.9-35.2); Mean Corpuscular Hemoglobin 28.3 pg (25.9-34.0); Mean Corpuscular Volume 89.8 fL (80.0-94.0); Mean Platelet Volume 9.1 fL (9.5-13.5); Platelet Count 333 10^3/uL (150-450); Red Blood Count 4.52 10^6/uL (4.70-6.10); Red Cell Distribution Width 14.6 % (11.0-15.0)
[2024-11-28 06:27] LABS: Alanine Aminotransferase 47 U/L (16-63); Albumin Globulin Ratio 0.6; Albumin Level 1.8 g/dL (3.4-5.0); Alkaline Phosphatase 54 U/L (46-116); Aspartate Amino Transferase 22 U/L (15-37); BUN Creatinine Ratio 29.7; Bilirubin Total 0.7 mg/dL (0.2-1.0); Calcium 8.3 mg/dL (8.5-10.1); Carbon Dioxide 30.4 mmol/L (21.0-32.0); Chloride 108 mmol/L (98-107); Estimated GFR (African America >60 (>=60 mL/min/1.73m^2); Estimated GFR (Non-African Ame >60 (>=60 mL/min/1.73m^2); Globulin 2.8 g/dL; Glucose 111 mg/dL (74-106); Potassium 4.4 mmol/L (3.5-5.1); Sodium 144 mmol/L (136-145); Total Protein 4.6 g/dL (6.4-8.2)
[2024-11-28 06:28] LABS: Band Neutrophils Absolute 0.3 10^3/uL (0.0-0.3); Eosinophils Absolute Manual 0.29 10^3/uL (0.00-0.70); Lymphocytes Absolute Manual 0.58 10^3/uL (1.20-3.80); Monocytes Absolute Manual 1.74 10^3/uL (0.30-0.80)
--- NOTE | 2024-11-28 08:34 | P.PN_ITS ---
Progress Note: Subjective Subjective Interval history: Patient is currently on Vapotherm off and on with BIPAP while sleeping. He is alert today and answering questions appropriately. Minimal rib pain. No fevers, no chills, no n/v/d. Echo showed severe aortic stenosis, new finding, in agreement no valve replacement but would like cardiology input. We discussed possibility of [facility] and then rehab given high flow oxygen. patient and are amendable to option. Exam Narrative Exam Narrative: General: Patient is alert to person, place and time Skin: many ecchymosis over forearms Head: atraumatic, acephalic Eyes: PERRLA, no nystagmus present, conjunctiva clear, no scleral icterus Ears: normal gross auditory acuity Heart: Normal rate and rhythm, no murmurs/rubs/gallops Lungs: audible wheezes and crackles Abdomen: Normal audible bowel sounds, no distension, No palpable masses, no organomegaly, no rebound/guarding/ or rigidity Musculoskeletal: no swelling bilateral lower extremities Neuro: CN II-X grossly intact Constitutional Vital Signs, click to edit/add: Last Vital Signs Temp 98.4 F 11/28/24 08:06 Pulse 116 H 11/28/24 08:06 Resp 20 11/28/24 08:06 BP 112/72 11/28/24 08:06 Pulse Ox 91 L 11/28/24 08:06 O2 Del Method Vapotherm 11/28/24 08:06 O2 Flow Rate 40 11/28/24 08:06 FiO2 50 11/28/24 08:06 Progress Note: Objective Labs Labs: Short CBC 11/28/24 Range/Units 05:06 WBC 29.0 H (4.0-11.0) 10^3/uL Hgb 12.8 L (14.0-18.0) g/dL Hct 40.6 L (42.0-54.0) % Plt Count 333 (150-450) 10^3/uL BMP 11/28/24 05:06 Sodium 144 Potassium 4.4 Chloride 108 H Carbon Dioxide 30.4 BUN 19.0 H Creatinine 0.64 L Glucose 111 H Calcium 8.3 L Liver Function 11/28/24 Range/Units 05:06 Total Bilirubin 0.7 (0.2-1.0) mg/dL AST 22 (15-37) U/L ALT 47 (16-63) U/L Alkaline Phosphatase 54 (46-116) U/L Albumin 1.8 L (3.4-5.0) g/dL Progress Note: A&P Assessment and Plan (1) Community acquired pneumonia: Assessment and Plan: Continue on levaquin, Continue opep, duonebs and oxygen therapy. His course is complicated by rib and sternal fractures which makes expectoration difficult and his clinical course difficult. Blood culture positive x 1 for Staph and sputum, urine cultures have been negative. He continues the need for BIPAP and High flow oxygen. completed treatment for influenza Qualifiers: Laterality: left Lung location: lower lobe of lung Qualified Code(s): J18.9 - Pneumonia, unspecified organism (2) Acute hypoxic respiratory failure: Assessment and Plan: secondary to #1. monitor oxygen saturations closely, BIPAP as needed, Vapotherm, also complicated by severe Aortic stenosis (3) Influenza A: Assessment and Plan: completed 5 days of Tamiflu (4) Rhabdomyolysis: Assessment and Plan: resolved Qualifiers: Encounter type: subsequent encounter Rhabdomyolysis type: traumatic Qualified Code(s): T79.6XXD - Traumatic ischemia of muscle, subsequent encounter (5) MAHESH (acute kidney injury): Assessment and Plan: resolved (6) Closed traumatic nondisplaced fracture of multiple ribs of left side with routine healing: Assessment and Plan: continue pain control with lidocaine patch and tramadol (7) Closed fracture of sternum with routine healing: Assessment and Plan: continue pain control with lidocaine patch and tramadol Qualifiers: Sternal location: body of sternum Qualified Code(s): S22.22XD - Fracture of body of sternum, subsequent encounter for fracture with routine healing (8) Severe aortic valve stenosis: Assessment and Plan: as seen on Echo read 11/27/24, will get Cardiology consult for further input, plan of care (9) Severe protein-calorie malnutrition: Assessment and Plan: continue ensure (10) Benign essential hypertension: Assessment and Plan: continue lisinopril/hctz (11) Senile dementia: Assessment and Plan: continue donepezil Plan Patient is a DNRCCA Continue Lovenox for DVT prophylaxis Patient has been approved for rehab at the [facility] but not able to wean from high flow oxygen in the last 2 days. Case management to explore [facility]. Urinary Catheter Management Urinary Catheter Management Urethral: Cath placed during this visit: yes Urethral indwelling: No Insertion date: 11/19/24 Insertion time: 22:30
[2024-11-28] MEDS: METOPROLOL TARTRATE 25 MG TABLET PO ×2 (09:19→22:00)
[2024-11-28] MEDS: PROSTAT 15 GM PROTEIN/100 CAL 30 ML LIQUID PACKET PO ×2 (09:19→22:00)
[2024-11-28] MEDS: LIDOCAINE 5% PATCH 1 PATCH TOPICAL (09:19)
[2024-11-28] MEDS: FERROUS SULFATE 325 MG TABLET PO (09:19)
[2024-11-28] MEDS: POTASSIUM CHLORIDE 10 MEQ ER TABLET PO ×2 (09:19→22:01)
[2024-11-28] MEDS: ENSURE HP 237 ML LIQUID PO ×2 (09:19→22:00)
[2024-11-28] MEDS: NYSTATIN 15 GM POWDER 1 APPLIC TOPICAL ×2 (09:20→22:02)
--- NOTE | 2024-11-28 11:38 | CM.NOTE ---
Rounds made with Dr. Arriaza, discussed plan of care with pt and . Discussed with about looking at another facility for skilled that would be able to take pt on high flow oxygen. Pt and verbalize understanding and are in agreement. SW will call to check facilities that would take [facility].
[2024-11-28] MEDS: LEVOFLOXACIN IN DEXTROSE 5 % 750 MG/150 ML PREMIX 100 MG IV (11:42)
--- NOTE | 2024-11-28 11:43 | PT.DAILY ---
Physical Therapy Daily Note PT Daily Note/Assess Start: 11/22/24 10:41 Freq: Status: Active Protocol: Document 11/28/24 11:39 CITLALLI (Rec: 11/28/24 11:43 CITLALLI [id number]) Physical Therapy Daily Note/Assessment Time In/Time Out Time In 11:06 Time Out 11:21 Pain In Pain N/A Pain Out Pain N/A Subjective Subjective Pt supine upon arrival. On vapotherm. Initially declines PT but does agree to bed level ther ex with motivation. Therapeutic Exercise Time Therapeutic Exercise 3 Minutes (minutes) Therapeutic Exercise 0 Units Therapeutic Exercise Treatment Therapeutic Exercise Supine AP, heel slides, abd slides, QS 10x with vc and Treatment tactile cues to stay on task. Therapeutic Activity Time Therapeutic Activity 8 Minutes (minutes) Therapeutic Activity 1 Units Therapeutic Activity Treatment Bed Mobility Ability Maximum Assist,2 Person Assist Therapeutic Activity Nursing enters room to assist with scooting pt up in Comments bed when it's noticed he had a bowel movement. Side to side rolling MaxA +2 to get in sidelying position then maxA of 1 to maintain sidelying position. Pt is cleaned up with assistance of nursing. Pt returned to supine, total assist of 2 to scoot up in bed, pillows placed under bilat LE and UEs. HOB elevated. Call light is within reach and is present. Total Physical Therapy Time Total Therapy 11 Minutes Total Physical 1 Therapy Units Summary Daily Note Summary Overall decline in physical ability to help with bed mobility. Decline in cooperation.
--- NOTE | 2024-11-28 12:21 | SWNOTE1 ---
SW spoke to case management and at this time is agreeable for SW to look in to a facility that has respiratory, such as [facility]. SW called and spoke to Lourdes at [facility] and they are not in network, but could possibly do one time contract. She voiced to send referral. Referral sent to [facility]. Referral included face sheet, ED note, H&P, provider notes, case management report, pulmonary consult, nursing notes, diagnostic imaging, med list, and PT/OT notes.
--- NOTE | 2024-11-28 14:52 | SWNOTE1 ---
SW updated pt's that we are still waiting for [facility] to get back to SW.
--- NOTE | 2024-11-28 15:44 | SWNOTE1 ---
[facility] will attempt a one time contract, they will start precert once [place] cancels precert. JINNY called [facility] and Summer submitted for precert to be cancelled. JINNY emailed Lourdes at [facility] that [facility] submitted cancellation. [facility] will attempt to start precert. JINNY attempted to call pt's 2x, but phone number but the number has been disconnected. JINNY updated nurse.
--- NOTE | 2024-11-28 16:05 | SWNOTE1 ---
SW called and updated her. SW completed HENS online and took packet to floor.
--- NOTE | 2024-11-28 17:05 | PM.CACN ---
History of Present Illness History of Present Illness Consult date: 11/28/24 Requesting physician: Peyton Arriaza Chief complaint: Severe aortic stenosis Narrative: Patient is a 79-year-old male without prior cardiac history. Has history of hypertension, hyperlipidemia, sleep apnea on CPAP, and dementia. Patient states that he has been physically inactive for a long time and he has been physically deteriorating over the last 5 years or so. He states it has been difficult to ambulate around because of progressive weakness. He denies shortness of breath per se. 2 days prior to admission he fell off the toilet at home and he decided not to call anybody and he stayed on the floor all night. He does not think that he was dizzy or he passed out. Next morning his saw him and eventually he came to the hospital. In the ED he had sinus tachycardia and low blood pressure. He was found to have bilateral pneumonia with significant leukocytosis, many ribs fractures and acute renal insufficiency. He had also hypoxia and required to be on BiPAP however currently is better and he is on FiO2 40%. Patient states that overall he feels better. I noticed that he coughs frequently while I saw him but he is lying in the bed with the bed head about 30 to 45 degree and he appears to be comfortable. He denies bringing up sputum with cough. The patient states that prior to admission he did not have any chest pain. He had mild exertional dyspnea however no orthopnea or paroxysmal nocturnal dyspnea. He denies choking on the food. He denies palpitations or dizziness or legs edema He never been told that he had a cardiac murmur. Echo obtained on 11/26/2024 showed normal left ventricular systolic function and severe low-flow low gradient aortic stenosis therefore cardiology was consulted. Chest x-ray showed bilateral basilar infiltrate. Chest CT on 11/21/2024 showed bilateral lower lobe opacities consistent with atelectasis versus pneumonia, no PE Review of Systems ROS Narrative All systems were reviewed and they were negative except for the positive findings noted above in the history [facility] Medical History (Updated 11/28/24 @ 08:34 by Peyton Arriaza, DO) Acute cystitis without hematuria ?N30.00 - Acute cystitis without hematuria (ICD-10) Sternal fracture ?S22.20XA - Unspecified fracture of sternum, initial encounter for closed fracture (ICD-10) Acute respiratory distress ?R06.03 - Acute respiratory distress (ICD-10) Meds Home Medications and Allergies Home Medications ?Medication ?Instructions ?Recorded ?Confirmed ?Type donepezil 10 mg tablet 10 mg PO .QHS 11/19/24 11/19/24 History ferrous sulfate 325 mg (65 mg 325 mg PO DAILY 11/19/24 11/19/24 History iron) tablet (Daren-Time) lisinopril 20 1 tab PO DAILY 11/19/24 11/19/24 History mg-hydrochlorothiazide 25 mg tablet pramipexole 0.5 mg tablet 0.5 mg PO DAILY 11/19/24 11/19/24 History pravastatin 40 mg tablet 40 mg PO DAILY 11/19/24 11/19/24 History Allergies Allergy/AdvReac Type Severity Reaction Status Date / Time Penicillins AdvReac Intermediate Unknown Verified 11/19/24 15:40 Exam Narrative Exam Narrative: Is alert, oriented, not in apparent distress HEENT: Within normal limits Neck: Supple, normal function, thyroid is normal, jugular vasculature is normal, no carotid bruit Lungs: Clear to auscultation with fine wheezes bilaterally, no crackles or rhonchi Cardiovascular system: Regular rate and rhythm, systolic ejection murmur 3-4/6 at the aortic area Abdomen: Soft benign organomegaly or tenderness Extremities: No edema or cyanosis or clubbing Neurological examination grossly normal Constitutional Vital Signs, click to edit/add: Last Vital Signs Temp 99.4 F 11/28/24 16:00 Pulse 112 H 11/28/24 16:00 Resp 20 11/28/24 16:00 BP 112/72 11/28/24 08:06 Pulse Ox 88 L 11/28/24 16:00 O2 Del Method Vapotherm 11/28/24 16:00 O2 Flow Rate 40 11/28/24 16:00 FiO2 40 11/28/24 16:00 Results Labs and Meds Lab results: Cardiac Enzymes 11/28/24 Range/Units 05:06 AST 22 (15-37) U/L CBC 11/28/24 Range/Units 05:06 WBC 29.0 H (4.0-11.0) 10^3/uL RBC 4.52 L (4.70-6.10) 10^6/uL Hgb 12.8 L (14.0-18.0) g/dL Hct 40.6 L (42.0-54.0) % Plt Count 333 (150-450) 10^3/uL Comprehensive Metabolic Panel 11/28/24 Range/Units 05:06 Sodium 144 (136-145) mmol/L Potassium 4.4 (3.5-5.1) mmol/L Chloride 108 H (98-107) mmol/L Carbon Dioxide 30.4 (21.0-32.0) mmol/L BUN 19.0 H (7.0-18.0) mg/dL Creatinine 0.64 L (0.70-1.30) mg/dL Glucose 111 H (74-106) mg/dL Calcium 8.3 L (8.5-10.1) mg/dL AST 22 (15-37) U/L ALT 47 (16-63) U/L Alkaline Phosphatase 54 (46-116) U/L Total Protein 4.6 L (6.4-8.2) g/dL Albumin 1.8 L (3.4-5.0) g/dL Intake and Output 11/28/24 11/28/24 11/28/24 07:59 15:59 23:59 Intake Total 150 / 150 Output Total 600 / 1200 Balance -600 / 580 150 / 150 Intake: IV 150 / 150 Levofloxacin in Dextrose 5 % 150 / 150 750 mg In 150 ml @ 100 mls/hr IV Q24H [facility] Rx#:[id number] Output: Urine Amount (Catheter) 600 / 1200 Urethral 600 / 1200 Other: # Incontinent Voids 1 # Incontinent Bowel Movements 1 1 EKG 11/20/2024 showed sinus tachycardia with isolated PVC, nonspecific T wave changes Echo 11/26/2024 Mild concentric left ventricle hypertrophy Left ventricle ejection fraction 60% without wall motion abnormalities Severe low-flow low gradient aortic stenosis with peak velocity 3.6 m/s, mid peak pressure gradient 51 mmHg, mean pressure is 31 mmHg, aortic valve area 0.7 cm? Assessment and Plan Assessment and Plan (1) Severe aortic valve stenosis: (2) Benign essential hypertension: (3) Acute hypoxic respiratory failure: (4) Community acquired pneumonia: Qualifiers: Laterality: left Lung location: lower lobe of lung Qualified Code(s): J18.9 - Pneumonia, unspecified organism (5) Influenza A: (6) Rhabdomyolysis: Qualifiers: Encounter type: subsequent encounter Rhabdomyolysis type: traumatic Qualified Code(s): T79.6XXD - Traumatic ischemia of muscle, subsequent encounter (7) MAHESH (acute kidney injury): Assessment and Plan: Resolved (8) Closed traumatic nondisplaced fracture of multiple ribs of left side with routine healing: (9) Closed fracture of sternum with routine healing: Qualifiers: Sternal location: body of sternum Qualified Code(s): S22.22XD - Fracture of body of sternum, subsequent encounter for fracture with routine healing (10) Senile dementia: Plan Continue current support measures with IV antibiotics, and oxygenation, and controlling pain from rib fractures I do not think the patient is in heart failure. The respiratory distress is due to community-acquired pneumonia and influenza A And regarding to aortic stenosis I think patient will need further work up after he recovers from the current acute illness which can be done as outpatient including VASQUEZ and possible CT calcium score of the aortic valve to confirm severity of aortic stenosis. I discussed with the patient the diagnosis and the options of future management. I think the patient will be a candidate only for TAVR. I do not think he would be a candidate for surgical aortic valve replacement given his poor functional capacity and other comorbidities. Patient also DNR CCA. He expressed that he wants to proceed with further investigation and treatment. I discussed with the above with Dr. Cerna. I also mentioned that if the patient does not improve clinically and there is a concern of endocarditis to contact us in order to transfer the patient for VASQUEZ. At this moment she thinks that the 1 blood culture which is positive to Staph hominis is probably contamination Please make sure that patient has follow-up with cardiology 2 weeks postdischarge
[2024-11-28] MEDS: PANTOPRAZOLE SODIUM 40 MG VIAL IV (22:00)
[2024-11-28] MEDS: DONEPEZIL HCL 10 MG TABLET PO (22:01)
[2024-11-29] VITALS (22 sets, daily range): BP systolic 115–127; BP diastolic 67–81; PULSE 76–125; RESP 14; TEMP 36.6–37.2; O2SAT 90–94
[2024-11-29] MEDS: IPRATROPIUM/ALBUTEROL SULFATE 3 ML AMPUL.NEB IH ×2 (03:55→07:25)
[2024-11-29 06:10] LABS: Hematocrit 40.7 % (42.0-54.0); Hemoglobin 12.9 g/dL (14.0-18.0); Mean Corpuscular HGB Conc 31.7 g/dL (29.9-35.2); Mean Corpuscular Hemoglobin 28.4 pg (25.9-34.0); Mean Corpuscular Volume 89.5 fL (80.0-94.0); Platelet Count 346 10^3/uL (150-450); Red Blood Count 4.55 10^6/uL (4.70-6.10); Red Cell Distribution Width 14.6 % (11.0-15.0)
[2024-11-29 06:16] LABS: White Blood Count 35.3 10^3/uL (4.0-11.0)
[2024-11-29 06:22] LABS: Lymphocytes Absolute Manual 1.41 10^3/uL (1.20-3.80); Monocytes Absolute Manual 1.76 10^3/uL (0.30-0.80); Segmented Neut Absolute Manual 31.41 10^3/uL (1.4-6.5)
[2024-11-29 06:28] LABS: Alanine Aminotransferase 38 U/L (16-63); Albumin Globulin Ratio 0.5; Albumin Level 1.7 g/dL (3.4-5.0); Alkaline Phosphatase 62 U/L (46-116); Anion Gap 9.9; Aspartate Amino Transferase 17 U/L (15-37); BUN Creatinine Ratio 28.1; Bilirubin Total 0.8 mg/dL (0.2-1.0); Calcium 8.5 mg/dL (8.5-10.1); Carbon Dioxide 29.2 mmol/L (21.0-32.0); Chloride 108 mmol/L (98-107); Estimated GFR (African America >60 (>=60 mL/min/1.73m^2); Estimated GFR (Non-African Ame >60 (>=60 mL/min/1.73m^2); Globulin 3.2 g/dL; Glucose 112 mg/dL (74-106); Potassium 4.1 mmol/L (3.5-5.1); Sodium 143 mmol/L (136-145); Total Protein 4.9 g/dL (6.4-8.2)
--- NOTE | 2024-11-29 06:53 | PC.NURSE ---
0215 patient had a BM, brief was changed, patient was cleaned up and repositioned. 0320 patient had a BM, Patient states he is able to tell when he needs to go, but had already gone in his brief. 0400 patient had a BM again and was unable to tell he had to go. Stool is mushy and dark green. patient was cleaned, brief changed and repositioned.
--- NOTE | 2024-11-29 08:04 | XR_ITS ---
[address] [address] Patient Name: MURPHY DE LA ROSA MRN: [id number] date: 1945 Sex: M Assigned Patient Location: [place] Current Patient Location: [place] Accession/Order Number: [id number] Exam Date: 11/29/2024 08:25 Report Date: 11/29/2024 08:44 At the request of: CAM BOBBY Procedure: XR chest 1V Exam: Radiographs: XR chest 1V Reason for exam: pna Comparison: Chest x-ray dated 11/25/2024 XR/XR chest 1V IMPRESSION: Atelectasis and/or infiltrate in the lower lungs bilaterally. Small bilateral pleural effusions. Pulmonary venous hypertension. Old right rib fracture. Remainder of the chest is unremarkable. Electronically authenticated by: DON WELDON Date: 11/29/2024 08:44
[2024-11-29 08:22] LABS: PCO2 VBG 37.9 mmHg (40.0-52.0); pH VBG 7.493 (7.330-7.430)
[2024-11-29 08:40] LABS: Lactate/Lactic Acid 0.7 mmol/L (0.4-2.0)
[2024-11-29] MEDS: LIDOCAINE 5% PATCH 1 PATCH TOPICAL (09:31)
[2024-11-29] MEDS: ENSURE HP 237 ML LIQUID PO ×2 (09:31→21:58)
[2024-11-29] MEDS: METOPROLOL TARTRATE 25 MG TABLET PO ×2 (09:31→21:57)
[2024-11-29] MEDS: FERROUS SULFATE 325 MG TABLET PO (09:31)
[2024-11-29] MEDS: POTASSIUM CHLORIDE 10 MEQ ER TABLET PO ×2 (09:31→21:57)
[2024-11-29] MEDS: PROSTAT 15 GM PROTEIN/100 CAL 30 ML LIQUID PACKET PO ×2 (09:31→21:57)
[2024-11-29] MEDS: NYSTATIN 15 GM POWDER 1 APPLIC TOPICAL ×2 (09:32→21:57)
--- NOTE | 2024-11-29 09:42 | PT.DAILY ---
Physical Therapy Daily Note PT Daily Note/Assess Start: 11/22/24 10:41 Freq: Status: Active Protocol: Document 11/29/24 09:35 CITLALLI (Rec: 11/29/24 09:41 CITLALLI [id number]) Physical Therapy Daily Note/Assessment Time In/Time Out Time In 08:30 Time Out 08:40 Pain In Pain N/A Pain Out Pain N/A Subjective Subjective RN Ok'd bed level ex. Pt on Vapotherm. Spo2 92% and HR 109 upon arrival. Pt agreeable to AAROM. Therapeutic Exercise Time Therapeutic Exercise 8 Minutes (minutes) Therapeutic Exercise 1 Units Therapeutic Exercise Treatment Therapeutic Exercise Pt completes AP, GS, QS, and SAQ actively. AA for SLR, Treatment heel slides, and abd slides. Spo2 91% and HR 114 with activity. Declines wanting repositioned but does agree to pillows under bilat LEs. Pt remains supine with call light in reach and needs met. Total Physical Therapy Time Total Therapy 8 Minutes Total Physical 1 Therapy Units Summary Daily Note Summary Denies discomfort with supine ex today. Cont to be on high flow O2 - 92-91% throughout session.
--- NOTE | 2024-11-29 10:21 | P.PN_ITS ---
Progress Note: Subjective Subjective Interval history: Patient currently on Vapotherm, significant respiratory distress, still with pain with deep inspiration. Exam Constitutional Vital Signs, click to edit/add: Last Vital Signs Temp 98.2 F 11/29/24 07:50 Pulse 108 H 11/29/24 10:00 Resp 26 H 11/29/24 07:50 BP 115/67 11/29/24 07:50 Pulse Ox 93 L 11/29/24 10:00 O2 Del Method Vapotherm 11/29/24 07:50 O2 Flow Rate 40 11/29/24 07:50 FiO2 50 11/29/24 07:27 Documenting provider has reviewed patient's vital signs: yes Common normals: apparent distress (To be in the orderThroat: s without contrast? Svere respiratory distress) Chest Common normals: inspection of chest normal Respiratory Common normals: abnormal respiratory effort Auscultation: rales (Basis) and rhonchi Cardio Common normals: regular rhythm; irregular rate Rate: tachycardic Extremity Common normals: abnormal to inspection (1+ edema) Progress Note: Objective Labs Labs: Short CBC 11/29/24 Range/Units 05:38 WBC 35.3 H* (4.0-11.0) 10^3/uL Hgb 12.9 L (14.0-18.0) g/dL Hct 40.7 L (42.0-54.0) % Plt Count 346 (150-450) 10^3/uL BMP 11/29/24 05:38 Sodium 143 Potassium 4.1 Chloride 108 H Carbon Dioxide 29.2 BUN 18.0 Creatinine 0.64 L Glucose 112 H Calcium 8.5 Liver Function 11/29/24 Range/Units 05:38 Total Bilirubin 0.8 (0.2-1.0) mg/dL AST 17 (15-37) U/L ALT 38 (16-63) U/L Alkaline Phosphatase 62 (46-116) U/L Albumin 1.7 L (3.4-5.0) g/dL Progress Note: A&P Assessment and Plan (1) Severe aortic valve stenosis: (2) Benign essential hypertension: (3) Acute hypoxic respiratory failure: (4) Community acquired pneumonia: Qualifiers: Laterality: left Lung location: lower lobe of lung Qualified Code(s): J18.9 - Pneumonia, unspecified organism (5) Influenza A: (6) Rhabdomyolysis: Qualifiers: Encounter type: subsequent encounter Rhabdomyolysis type: traumatic Qualified Code(s): T79.6XXD - Traumatic ischemia of muscle, subsequent encounter (7) MAHESH (acute kidney injury): (8) Closed traumatic nondisplaced fracture of multiple ribs of left side with routine healing: (9) Closed fracture of sternum with routine healing: Qualifiers: Sternal location: body of sternum Qualified Code(s): S22.22XD - Fracture of body of sternum, subsequent encounter for fracture with routine healing (10) Senile dementia: (11) Sepsis: Qualifiers: Acute respiratory failure type: with hypoxia Sepsis acute organ dysfunction status: with acute organ dysfunction Sepsis type: methicillin susceptible Staphylococcus aureus Severe sepsis acute organ dysfunction type: acute respiratory failure Severe sepsis shock status: without septic shock Qualified Code(s): A41.01 - Sepsis due to Methicillin susceptible Staphylococcus aureus; R65.20 - Severe sepsis without septic shock; J96.01 - Acute respiratory failure with hypoxia (12) Acute respiratory distress: Plan Admission findings: Patient with sinus tachycardia, respiratory distress, acute hypoxia requiring BiPAP ventilation with acute hypoxic respiratory failure, somewhat hypertensive on admission but then hypotensive later on, significant leukocytosis with lactic acidosis and acute rhabdomyolysis, and pneumonia resulting in severe sepsis Acute hypoxic respiratory failure requiring BiPAP ventilation secondary to community-acquired pneumonia resulting in severe sepsis-hypoxic and significantly elevated over the last 3 days, will adjust IV antibiotics for broader spectrum coverage, try to obtain sputum culture, repeat urine culture for alternate source of leukocytosis and repeat blood cultures Influenza A-treatment completed Chest wall contusion resulting in acute minimally displaced sternal fracture and multiple rib fractures-this was discovered on CT scan pain control fairly stable Fluid overload-kidney function returned to normal, but appears to be fluid overloaded with significant peripheral edema and significant respiratory distress 1 dose of IV diuretics Severe aortic stenosis-see cardiology consultation , Acute rhabdomyolysis with acute kidney injury-resolved History of hypertension-stable Mild dementia-continue with home medications Hypercholesterolemia continue with home medications Severe protein calorie malnutrition-diet management Abnormal urinalysis consistent with acute UTI-check on cultures Hyperammonemia-stable Admission status: Patient with severe sepsis secondary due to to pneumonia with acute hypoxic respiratory failure with multiple rib fractures and sternal fracture, medically necessary treatment will span 2 midnights. Inpatient status Urinary Catheter Management Urinary Catheter Management Urethral: Cath placed during this visit: yes Urethral indwelling: No Insertion date: 11/19/24 Insertion time: 22:30
[2024-11-29] MEDS: IPRATROPIUM BROMIDE 0.5 MG/2.5 ML VIAL.NEB IH ×3 (10:37→22:01)
[2024-11-29] MEDS: LEVALBUTEROL HCL 0.63 MG/3 ML VIAL.NEB IH ×3 (10:38→22:01)
[2024-11-29] MEDS: CEFTAZIDIME 2,000 MG in 0.9 % SODIUM CHLORIDE 100 ML 200 MG IV ×2 (11:43→21:56)
[2024-11-29] MEDS: CLINDAMYCIN PHOSPHATE/D5W 600 MG/50 ML PREMIX 100 MG IV ×2 (12:30→17:03)
[2024-11-29] MEDS: FUROSEMIDE 40 MG/4 ML VIAL IVP (12:31)
[2024-11-29] MEDS: LINEZOLID IN DEXTROSE 5% 600 MG/300 ML PIGGYBACK 300 MG IV (12:31)
[2024-11-29] MEDS: 0.9 % SODIUM CHLORIDE 250 ML 10 ML IV (12:31)
[2024-11-29] MEDS: ENOXAPARIN SODIUM 40 MG/0.4 ML SYRINGE SUBQ (17:03)
[2024-11-29] MEDS: PANTOPRAZOLE SODIUM 40 MG VIAL IV (21:56)
[2024-11-29] MEDS: DONEPEZIL HCL 10 MG TABLET PO (21:57)
--- NOTE | 2024-11-29 22:26 | RESP.RT ---
Duoderm at bridge of nose
[2024-11-30] VITALS (24 sets, daily range): BP systolic 105–139; BP diastolic 66–80; PULSE 85–115; RESP 14; TEMP 36.6–36.9; O2SAT 90–94
[2024-11-30] MEDS: CLINDAMYCIN PHOSPHATE/D5W 600 MG/50 ML PREMIX 100 MG IV ×5 (01:02→23:28)
[2024-11-30] MEDS: LINEZOLID IN DEXTROSE 5% 600 MG/300 ML PIGGYBACK 300 MG IV ×2 (01:02→13:19)
[2024-11-30] MEDS: IPRATROPIUM BROMIDE 0.5 MG/2.5 ML VIAL.NEB IH ×4 (04:47→23:03)
[2024-11-30] MEDS: LEVALBUTEROL HCL 0.63 MG/3 ML VIAL.NEB IH ×4 (04:47→23:03)
[2024-11-30] MEDS: CEFTAZIDIME 2,000 MG in 0.9 % SODIUM CHLORIDE 100 ML 200 MG IV ×3 (05:25→20:26)
[2024-11-30 06:02] LABS: Bilirubin Urine NEGATIVE (NEGATIVE); Blood Urine MODERATE (NEGATIVE); Clarity Urine SL CLOUDY (CLEAR); Color Urine YELLOW (YELLOW); Glucose Urine UA NEGATIVE (NEGATIVE); Ketones Urine NEGATIVE (NEGATIVE); Leukocyte Esterase Urine NEGATIVE (NEGATIVE); Nitrite Urine NEGATIVE (NEGATIVE); Protein Urine TRACE mg/dL (NEG/TRACE); Specific Gravity Urine >=1.030 (1.005-1.025); Urobilinogen Urine 0.2 EU/dL (0.2-1.0); pH Urine 5.5 (5.0-9.0)
[2024-11-30 06:02] LABS: Hematocrit 37.1 % (42.0-54.0); Hemoglobin 12.1 g/dL (14.0-18.0); Mean Corpuscular HGB Conc 32.6 g/dL (29.9-35.2); Mean Corpuscular Hemoglobin 29.1 pg (25.9-34.0); Mean Corpuscular Volume 89.2 fL (80.0-94.0); Mean Platelet Volume 8.8 fL (9.5-13.5); Platelet Count 323 10^3/uL (150-450); Red Blood Count 4.16 10^6/uL (4.70-6.10); Red Cell Distribution Width 14.4 % (11.0-15.0)
[2024-11-30 06:06] LABS: White Blood Count 31.9 10^3/uL (4.0-11.0)
[2024-11-30 06:10] LABS: Bacteria Urine TRACE #/HPF (NONE SEEN); Cast Seen? NONE SEEN #/LPF (NONE SEEN); Crystals Seen? None Seen #/HPF (None Seen); Mucus Urine MODERATE (NONE SEEN); Squamous Epithelial Cell Urine NONE SEEN #/LPF (NONE/RARE); WBC Urine 0-2 #/HPF (NONE SEEN)
[2024-11-30 06:19] LABS: Band Neutrophils Absolute 0.3 10^3/uL (0.0-0.3); Eosinophils Absolute Manual 0.31 10^3/uL (0.00-0.70); Lymphocytes Absolute Manual 0.95 10^3/uL (1.20-3.80); Monocytes Absolute Manual 0.63 10^3/uL (0.30-0.80); Segmented Neut Absolute Manual 29.66 10^3/uL (1.4-6.5)
[2024-11-30 06:41] LABS: Anion Gap 7.1; BUN Creatinine Ratio 25.4; Calcium 8.3 mg/dL (8.5-10.1); Carbon Dioxide 32.6 mmol/L (21.0-32.0); Chloride 107 mmol/L (98-107); Estimated GFR (African America >60 (>=60 mL/min/1.73m^2); Estimated GFR (Non-African Ame >60 (>=60 mL/min/1.73m^2); Glucose 115 mg/dL (74-106); Potassium 3.7 mmol/L (3.5-5.1); Sodium 143 mmol/L (136-145)
[2024-11-30] MEDS: METOPROLOL TARTRATE 25 MG TABLET PO (09:34)
[2024-11-30] MEDS: ENSURE HP 237 ML LIQUID PO ×2 (09:35→20:42)
[2024-11-30] MEDS: POTASSIUM CHLORIDE 10 MEQ ER TABLET PO (09:35)
[2024-11-30] MEDS: NYSTATIN 15 GM POWDER 1 APPLIC TOPICAL ×2 (09:35→20:42)
[2024-11-30] MEDS: FERROUS SULFATE 325 MG TABLET PO (09:35)
[2024-11-30] MEDS: PROSTAT 15 GM PROTEIN/100 CAL 30 ML LIQUID PACKET PO ×2 (09:35→20:42)
[2024-11-30] MEDS: LIDOCAINE 5% PATCH 1 PATCH TOPICAL (09:36)
--- NOTE | 2024-11-30 09:49 | P.PN_ITS ---
Progress Note: Subjective Subjective Interval history: Patient sleeping when I walked in the room, but does awaken easily and appears to answer questions appropriately, still on Vapotherm, still significant dyspnea just at rest. Exam Constitutional Vital Signs, click to edit/add: Last Vital Signs Temp 98.0 F 11/30/24 08:00 Pulse 96 H 11/30/24 08:00 Resp 24 H 11/30/24 08:00 BP 126/75 11/30/24 08:00 Pulse Ox 92 L 11/30/24 08:00 O2 Del Method Vapotherm 11/30/24 08:00 O2 Flow Rate 40 11/30/24 08:00 FiO2 50 11/30/24 04:47 Documenting provider has reviewed patient's vital signs: yes Common normals: apparent distress (To be in the orderThroat: s without contrast? Svere respiratory distress) Chest Common normals: inspection of chest normal Respiratory Common normals: abnormal respiratory effort Auscultation: rales (Basis) and rhonchi (May be slightly better than yesterday,) Cardio Common normals: regular rhythm; irregular rate Rate: tachycardic Extremity Common normals: abnormal to inspection (Unchanged from previous day, 1+) Progress Note: Objective Labs Labs: Short CBC 11/30/24 Range/Units 05:52 WBC 31.9 H* (4.0-11.0) 10^3/uL Hgb 12.1 L (14.0-18.0) g/dL Hct 37.1 L (42.0-54.0) % Plt Count 323 (150-450) 10^3/uL BMP 11/30/24 05:52 Sodium 143 Potassium 3.7 Chloride 107 Carbon Dioxide 32.6 H BUN 17.0 Creatinine 0.67 L Glucose 115 H Calcium 8.3 L Urine 11/30/24 Range/Units 05:20 Urine Color Yellow (YELLOW) Urine Clarity Sl cloudy (CLEAR) Urine pH 5.5 (5.0-9.0) Ur Specific [place] >=1.030 A (1.005-1.025) Urine Protein Trace (NEG/TRACE) mg/dL Urine Glucose (UA) Negative (NEGATIVE) mg/dL Progress Note: A&P Assessment and Plan (1) Severe aortic valve stenosis: (2) Benign essential hypertension: (3) Acute hypoxic respiratory failure: (4) Community acquired pneumonia: Qualifiers: Laterality: left Lung location: lower lobe of lung Qualified Code(s): J18.9 - Pneumonia, unspecified organism (5) Influenza A: (6) Rhabdomyolysis: Qualifiers: Encounter type: subsequent encounter Rhabdomyolysis type: traumatic Qualified Code(s): T79.6XXD - Traumatic ischemia of muscle, subsequent encounter (7) MAHESH (acute kidney injury): (8) Closed traumatic nondisplaced fracture of multiple ribs of left side with routine healing: (9) Closed fracture of sternum with routine healing: Qualifiers: Sternal location: body of sternum Qualified Code(s): S22.22XD - Fracture of body of sternum, subsequent encounter for fracture with routine healing (10) Senile dementia: (11) Sepsis: Qualifiers: Acute respiratory failure type: with hypoxia Sepsis acute organ dysfunction status: with acute organ dysfunction Sepsis type: methicillin susceptible Staphylococcus aureus Severe sepsis acute organ dysfunction type: acute respiratory failure Severe sepsis shock status: without septic shock Qualified Code(s): A41.01 - Sepsis due to Methicillin susceptible Staphylococcus aureus; R65.20 - Severe sepsis without septic shock; J96.01 - Acute respiratory failure with hypoxia (12) Acute respiratory distress: Plan Admission findings: Patient with sinus tachycardia, respiratory distress, acute hypoxia requiring BiPAP ventilation with acute hypoxic respiratory failure, somewhat hypertensive on admission but then hypotensive later on, significant leukocytosis with lactic acidosis and acute rhabdomyolysis, and pneumonia resulting in severe sepsis Acute hypoxic respiratory failure requiring BiPAP ventilation secondary to community-acquired pneumonia resulting in severe sepsis-hypoxia appears to be more stabilized we were able to wean it a little bit yesterday, but back at 50% today. Change in antibiotics yesterday, white blood cell count finally heading back down Influenza A-treatment completed Chest wall contusion resulting in acute minimally displaced sternal fracture and multiple rib fractures-this was discovered on CT scan pain control fairly stable Fluid overload-kidney function returned to normal, but appears to be fluid overloaded with significant peripheral edema and patient is on chest x-ray and increasing his respiratory distress, Lasix given yesterday with some increase in urine output but feel he still has significant volume overload, difficult to treat with the severely the low albumin, will give albumin 2 doses today Bumex drip today see if that combination is able to diurese improved from previous days Severe aortic stenosis-see cardiology consultation, this would also result in needing to be slow with his diuresis , Acute rhabdomyolysis with acute kidney injury-resolved History of hypertension-stable Mild dementia-continue with home medications Hypercholesterolemia continue with home medications Severe protein calorie malnutrition-diet management-see above Abnormal urinalysis consistent with acute UTI-check on cultures Hyperammonemia-stable Admission status: Patient with severe sepsis secondary due to to pneumonia with acute hypoxic respiratory failure with multiple rib fractures and sternal fracture, medically necessary treatment will span 2 midnights. Inpatient status Urinary Catheter Management Urinary Catheter Management Urethral: Cath placed during this visit: yes Urethral indwelling: No Insertion date: 11/19/24 Insertion time: 22:30
[2024-11-30 10:03] LABS: Alanine Aminotransferase 38 U/L (16-63); Albumin Globulin Ratio 0.5; Albumin Level 1.6 g/dL (3.4-5.0); Alkaline Phosphatase 75 U/L (46-116); Aspartate Amino Transferase 24 U/L (15-37); Bilirubin Direct 0.1 mg/dL (0.0-0.2); Bilirubin Total 0.6 mg/dL (0.2-1.0); Globulin 3.2 g/dL; Total Protein 4.8 g/dL (6.4-8.2)
[2024-11-30] MEDS: BUMETANIDE 10 MG in 0.9 % SODIUM CHLORIDE 160 ML IV (10:40)
[2024-11-30] MEDS: ALBUMIN HUMAN 25 GM/100 ML PREMIX IV ×2 (10:46→18:09)
[2024-11-30] MEDS: ENOXAPARIN SODIUM 40 MG/0.4 ML SYRINGE SUBQ (18:13)
[2024-11-30] MEDS: PANTOPRAZOLE SODIUM 40 MG VIAL IV (20:42)
[2024-11-30] MEDS: MAGNESIUM OXIDE 400 MG TABLET PO (20:42)
[2024-11-30] MEDS: POTASSIUM CHLORIDE 10 MEQ ER TABLET 20 MEQ PO (20:43)
[2024-11-30] MEDS: TRAMADOL HCL 50 MG TABLET PO (20:47)
[2024-11-30] MEDS: DONEPEZIL HCL 10 MG TABLET PO (21:35)
[2024-12-01] VITALS (24 sets, daily range): BP systolic 113–130; BP diastolic 69–93; PULSE 82–120; RESP 14; TEMP 36.4–37.1; O2SAT 89–96
[2024-12-01] MEDS: LINEZOLID IN DEXTROSE 5% 600 MG/300 ML PIGGYBACK 150 MG IV ×2 (00:42→13:55)
[2024-12-01] MEDS: CEFTAZIDIME 2,000 MG in 0.9 % SODIUM CHLORIDE 100 ML 200 MG IV ×2 (03:00→12:25)
[2024-12-01] MEDS: LEVALBUTEROL HCL 0.63 MG/3 ML VIAL.NEB IH ×4 (04:34→23:38)
[2024-12-01] MEDS: IPRATROPIUM BROMIDE 0.5 MG/2.5 ML VIAL.NEB IH ×4 (04:34→23:38)
[2024-12-01] MEDS: CLINDAMYCIN PHOSPHATE/D5W 600 MG/50 ML PREMIX 100 MG IV ×4 (05:02→23:12)
[2024-12-01 06:00] LABS: Basophils Percent Auto 0.2 % (0.2-2.0); Eosinophils Absolute Auto 0.3 10^3/uL (0.0-0.7); Eosinophils Percent Auto 1.1 % (0.9-7.0); Hematocrit 39.5 % (42.0-54.0); Hemoglobin 13.1 g/dL (14.0-18.0); Immature Granulocytes Abs Auto 0.26 10^3/uL (0.00-0.03); Immature Granulocytes Pct Auto 1.1 % (0.0-0.5); Lymphocytes Absolute Auto 1.3 10^3/uL (1.2-3.8); Lymphocytes Percent Auto 5.3 % (20.5-60.0); Mean Corpuscular HGB Conc 33.2 g/dL (29.9-35.2); Mean Corpuscular Hemoglobin 29.2 pg (25.9-34.0); Mean Platelet Volume 8.9 fL (9.5-13.5); Monocytes Absolute Auto 1.4 10^3/uL (0.3-0.8); Monocytes Percent Auto 5.9 % (1.7-12.0); Neutrophils Absolute Auto 20.3 10^3/uL (1.4-6.5); Neutrophils Percent Auto 86.4 % (43.0-75.0); Platelet Count 344 10^3/uL (150-450); Red Blood Count 4.49 10^6/uL (4.70-6.10); Red Cell Distribution Width 14.2 % (11.0-15.0); White Blood Count 23.5 10^3/uL (4.0-11.0)
[2024-12-01 06:16] LABS: Anion Gap 7.5; BUN Creatinine Ratio 19.7; Calcium 8.2 mg/dL (8.5-10.1); Carbon Dioxide 41.3 mmol/L (21.0-32.0); Chloride 96 mmol/L (98-107); Estimated GFR (African America >60 (>=60 mL/min/1.73m^2); Estimated GFR (Non-African Ame >60 (>=60 mL/min/1.73m^2); Glucose 132 mg/dL (74-106); Sodium 142 mmol/L (136-145)
[2024-12-01 06:18] LABS: Alanine Aminotransferase 39 U/L (16-63); Albumin Globulin Ratio 0.8; Albumin Level 2.6 g/dL (3.4-5.0); Alkaline Phosphatase 77 U/L (46-116); Aspartate Amino Transferase 27 U/L (15-37); Bilirubin Direct 0.2 mg/dL (0.0-0.2); Bilirubin Total 0.9 mg/dL (0.2-1.0); Globulin 3.4 g/dL
[2024-12-01 06:37] LABS: Potassium 2.8 mmol/L (3.5-5.1)
--- NOTE | 2024-12-01 06:53 | P.PN_ITS ---
Progress Note: Subjective Subjective Interval history: Patient was doing better with his breathing, did have a little trouble overnight, and is back on BiPAP this morning for comfort Exam Constitutional Vital Signs, click to edit/add: Last Vital Signs Temp 97.5 F L 12/01/24 03:42 Pulse 108 H 12/01/24 05:42 Resp 20 12/01/24 04:34 BP 123/83 12/01/24 03:42 Pulse Ox 91 L 12/01/24 05:42 O2 Del Method Nasal Cannula 12/01/24 04:34 O2 Flow Rate 6 12/01/24 04:34 FiO2 40 12/01/24 04:48 Documenting provider has reviewed patient's vital signs: yes Common normals: apparent distress (To be in the orderThroat: s without contrast? Svere respiratory distress) Chest Common normals: inspection of chest normal Respiratory Common normals: normal respiratory effort (Seems more comfortable with his breathing today,) Auscultation: rales (Basis) and rhonchi (Much improved from previous day) Cardio Common normals: regular rhythm; irregular rate Rate: tachycardic Extremity Common normals: abnormal to inspection (Trace edema persisting but improved) Progress Note: Objective Labs Labs: Short CBC 12/01/24 Range/Units 05:31 WBC 23.5 H (4.0-11.0) 10^3/uL Hgb 13.1 L (14.0-18.0) g/dL Hct 39.5 L (42.0-54.0) % Plt Count 344 (150-450) 10^3/uL BMP 12/01/24 05:31 Sodium 142 Potassium 2.8 L* Chloride 96 L Carbon Dioxide 41.3 H BUN 14.0 Creatinine 0.71 Glucose 132 H Calcium 8.2 L Liver Function 11/30/24 12/01/24 Range/Units 05:52 05:31 Total Bilirubin 0.6 0.9 (0.2-1.0) mg/dL Direct Bilirubin 0.1 0.2 (0.0-0.2) mg/dL AST 24 27 (15-37) U/L ALT 38 39 (16-63) U/L Alkaline Phosphatase 75 77 (46-116) U/L Albumin 1.6 L 2.6 L (3.4-5.0) g/dL Progress Note: A&P Assessment and Plan (1) Severe aortic valve stenosis: (2) Benign essential hypertension: (3) Acute hypoxic respiratory failure: (4) Community acquired pneumonia: Qualifiers: Laterality: left Lung location: lower lobe of lung Qualified Code(s): J18.9 - Pneumonia, unspecified organism (5) Influenza A: (6) Rhabdomyolysis: Qualifiers: Encounter type: subsequent encounter Rhabdomyolysis type: traumatic Qualified Code(s): T79.6XXD - Traumatic ischemia of muscle, subsequent encounter (7) MAHESH (acute kidney injury): (8) Closed traumatic nondisplaced fracture of multiple ribs of left side with routine healing: (9) Closed fracture of sternum with routine healing: Qualifiers: Sternal location: body of sternum Qualified Code(s): S22.22XD - Fracture of body of sternum, subsequent encounter for fracture with routine healing (10) Senile dementia: (11) Sepsis: Qualifiers: Acute respiratory failure type: with hypoxia Sepsis acute organ dysfunction status: with acute organ dysfunction Sepsis type: methicillin susceptible Staphylococcus aureus Severe sepsis acute organ dysfunction type: acute respiratory failure Severe sepsis shock status: without septic shock Qualified Code(s): A41.01 - Sepsis due to Methicillin susceptible Staphylococcus aureus; R65.20 - Severe sepsis without septic shock; J96.01 - Acute respiratory failure with hypoxia (12) Acute respiratory distress: Plan Admission findings: Patient with sinus tachycardia, respiratory distress, acute hypoxia requiring BiPAP ventilation with acute hypoxic respiratory failure, somewhat hypertensive on admission but then hypotensive later on, significant leukocytosis with lactic acidosis and acute rhabdomyolysis, and pneumonia resulting in severe sepsis Acute hypoxic respiratory failure requiring BiPAP ventilation secondary to community-acquired pneumonia resulting in severe sepsis-was improving and then condition deteriorated so likely now nosocomial pneumonia, obtain sputum culture 2 days ago, will check on those results, white blood cell count 2 days ago was 35,000 down to 20,000 today with change in antibiotics. Maintain current antibiotic regiment Influenza A-treatment completed Chest wall contusion resulting in acute minimally displaced sternal fracture and multiple rib fractures-this was discovered on CT scan pain control fairly stable Fluid overload-8 L diuresed yesterday with a net of 5.5, repeat Bumex drip again today with albumin Severe aortic stenosis-see cardiology consultation, this would also result in needing to be slow with his diuresis , Acute rhabdomyolysis with acute kidney injury-resolved History of hypertension-stable Mild dementia-continue with home medications Hypercholesterolemia continue with home medications Severe protein calorie malnutrition-diet management-see above Abnormal urinalysis consistent with acute UTI-check on cultures Hyperammonemia-stable Admission status: Patient with severe sepsis secondary due to to pneumonia with acute hypoxic respiratory failure with multiple rib fractures and sternal fracture, medically necessary treatment will span 2 midnights. Inpatient status Urinary Catheter Management Urinary Catheter Management Urethral: Cath placed during this visit: yes Urethral indwelling: No Insertion date: 11/19/24 Insertion time: 22:30
--- NOTE | 2024-12-01 07:55 | CM.NOTE ---
Rounds made with Dr. Escalante, pt back on BIPAP last night. Dr. Escalante discussed with pt improvement of WBC after changing antibiotic and will continue diuresis today.
--- NOTE | 2024-12-01 09:32 | XR_ITS ---
The [address] [address] Patient Name: MURPHY DE LA ROSA MRN: [id number] date: 1945 Sex: M Assigned Patient Location: [place] Current Patient Location: [place] Accession/Order Number: [id number] Exam Date: 12/01/2024 09:50 Report Date: 12/01/2024 10:28 At the request of: CAM BOBBY Procedure: XR chest 1V EXAM: XR chest 1V HISTORY: acute hypoxia COMPARISON: 11/29/2024 TECHNIQUE: AP portable FINDINGS: LUNGS: Moderate bibasilar infiltrates obscuring the hemidiaphragms and partially obscuring the heart borders VASCULATURE: No increased pulmonary vasculature. PLEURA: No pneumothorax. Bilateral pleural effusions CARDIAC: No cardiomegaly or cardiac silhouette abnormality. MEDIASTINUM: No visible mass or adenopathy. BONES: No fracture or visible bone lesion. OTHER: Negative. XR/XR chest 1V IMPRESSION: Moderate bibasilar infiltrates and pleural effusions. Electronically authenticated by: FREDO SORENSEN Date: 12/01/2024 10:28
[2024-12-01] MEDS: BUMETANIDE 10 MG in 0.9 % SODIUM CHLORIDE 160 ML IV (10:00)
[2024-12-01] MEDS: NYSTATIN 15 GM POWDER 1 APPLIC TOPICAL ×2 (10:15→22:03)
[2024-12-01] MEDS: LIDOCAINE 5% PATCH 1 PATCH TOPICAL (10:15)
--- NOTE | 2024-12-01 11:26 | SWNOTE1 ---
SW faxed progress notes from 11/29-12/01, updated labs and vitals, OT from today, PT from 11/29, and nursing notes to [facility].
--- NOTE | 2024-12-01 11:29 | PT.DAILY ---
Physical Therapy Daily Note PT Daily Note/Assess Start: 11/22/24 10:41 Freq: Status: Active Protocol: Document 12/01/24 11:11 CITLALLI (Rec: 12/01/24 11:29 CITLALLI [id number]) Visit Not Completed Visit Not Completed Visit Not Completed Medical instability,Inability to participate,Nursing Due to: request to hold Other Reason Visit pt on hold. nursing reports he will be transferred to Not Completed ICU due to decline. This status change will warrant a new PT eval if MD wishes for pt to continue in our care . Physical Therapy Daily Note/Assessment Time In/Time Out Time In 10:10 Time Out 10:10 Pain In Pain N/A Pain Out Pain N/A GG. Functional Abilities and Goals-Complete for Swing Bed Patients Only [id number]. Self-Care [id number]. Mobility
[2024-12-01] MEDS: POTASSIUM CHLORIDE 40 MEQ in 0.9 % SODIUM CHLORIDE 250 ML 67.5 MEQ IV ×2 (12:20→18:18)
[2024-12-01] MEDS: SPIRONOLACTONE 25 MG TABLET 50 MG PO (12:21)
[2024-12-01 12:41] LABS: Troponin I High Sensitivity 12.9 pg/mL (4.0-76.1)
--- NOTE | 2024-12-01 12:58 | SWNOTE1 ---
SW reviewed PT note from today and nurse requested to hold and that pt was going back to ICU. PT would need a new order to continue to see patient. SW notified the doctor.
[2024-12-01 13:19] LABS: Anion Gap 5.2; BUN Creatinine Ratio 20.8; Calcium 8.2 mg/dL (8.5-10.1); Carbon Dioxide 41.9 mmol/L (21.0-32.0); Chloride 98 mmol/L (98-107); Estimated GFR (African America >60 (>=60 mL/min/1.73m^2); Estimated GFR (Non-African Ame >60 (>=60 mL/min/1.73m^2); Glucose 115 mg/dL (74-106); Potassium 3.1 mmol/L (3.5-5.1); Sodium 142 mmol/L (136-145)
[2024-12-01] MEDS: ENOXAPARIN SODIUM 40 MG/0.4 ML SYRINGE SUBQ (18:18)
[2024-12-01] MEDS: CEFTAZIDIME 2,000 MG in 0.9 % SODIUM CHLORIDE 100 ML 100 MG IV (22:00)
[2024-12-01] MEDS: MAGNESIUM OXIDE 400 MG TABLET PO (22:01)
[2024-12-01] MEDS: PANTOPRAZOLE SODIUM 40 MG VIAL IV (22:01)
[2024-12-01] MEDS: POTASSIUM CHLORIDE 10 MEQ ER TABLET 20 MEQ PO (22:01)
[2024-12-01] MEDS: DONEPEZIL HCL 10 MG TABLET PO (22:01)
[2024-12-01] MEDS: METOPROLOL TARTRATE 25 MG TABLET PO (22:02)
[2024-12-01] MEDS: PROSTAT 15 GM PROTEIN/100 CAL 30 ML LIQUID PACKET PO (22:04)
[2024-12-02] VITALS (22 sets, daily range): BP systolic 106–138; BP diastolic 73–88; PULSE 89–111; TEMP 36.4–36.7; O2SAT 91–97
[2024-12-02] MEDS: LINEZOLID IN DEXTROSE 5% 600 MG/300 ML PIGGYBACK 300 MG IV ×2 (00:46→13:22)
[2024-12-02] MEDS: LEVALBUTEROL HCL 0.63 MG/3 ML VIAL.NEB IH ×4 (04:01→23:39)
[2024-12-02] MEDS: IPRATROPIUM BROMIDE 0.5 MG/2.5 ML VIAL.NEB IH ×4 (04:02→23:39)
[2024-12-02] MEDS: CEFTAZIDIME 2,000 MG in 0.9 % SODIUM CHLORIDE 100 ML 200 MG IV ×3 (04:09→20:27)
[2024-12-02] MEDS: CLINDAMYCIN PHOSPHATE/D5W 600 MG/50 ML PREMIX 100 MG IV ×4 (05:15→23:04)
--- NOTE | 2024-12-02 06:02 | P.PN_ITS ---
Progress Note: Subjective Subjective Interval history: Looks better to start the day today, is currently on 6 L by nasal cannula and oxygen saturations are running in the low 90s., He feels better with his breathing. Exam Constitutional Vital Signs, click to edit/add: Last Vital Signs Temp 97.5 F L 12/02/24 04:19 Pulse 103 H 12/02/24 06:00 Resp 24 H 12/02/24 04:19 BP 116/80 12/02/24 04:19 Pulse Ox 95 12/02/24 06:00 O2 Del Method Nasal Cannula 12/02/24 04:19 O2 Flow Rate 6 12/02/24 04:19 FiO2 50 12/01/24 23:43 Documenting provider has reviewed patient's vital signs: yes Common normals: apparent distress (To be in the orderThroat: s without contrast? Svere respiratory distress) Chest Common normals: inspection of chest normal Respiratory Common normals: normal respiratory effort (Seems more comfortable with his breathing today,) Auscultation: rales (Persisting) and rhonchi (Continues to improve daily since change in antibiotics) Cardio Common normals: regular rhythm; irregular rate (Tachycardic but improved) Rate: tachycardic Extremity Common normals: abnormal to inspection (Trace edema persisting) Progress Note: Objective Labs Labs: Short CBC 12/01/24 Range/Units 05:31 WBC 23.5 H (4.0-11.0) 10^3/uL Hgb 13.1 L (14.0-18.0) g/dL Hct 39.5 L (42.0-54.0) % Plt Count 344 (150-450) 10^3/uL BMP 12/01/24 12/01/24 05:31 13:05 Sodium 142 142 Potassium 2.8 L* 3.1 L Chloride 96 L 98 Carbon Dioxide 41.3 H 41.9 H BUN 14.0 15.0 Creatinine 0.71 0.72 Glucose 132 H 115 H Calcium 8.2 L 8.2 L Liver Function 12/01/24 Range/Units 05:31 Total Bilirubin 0.9 (0.2-1.0) mg/dL Direct Bilirubin 0.2 (0.0-0.2) mg/dL AST 27 (15-37) U/L ALT 39 (16-63) U/L Alkaline Phosphatase 77 (46-116) U/L Albumin 2.6 L (3.4-5.0) g/dL Progress Note: A&P Assessment and Plan (1) Severe aortic valve stenosis: (2) Benign essential hypertension: (3) Acute hypoxic respiratory failure: (4) Community acquired pneumonia: Qualifiers: Laterality: left Lung location: lower lobe of lung Qualified Code(s): J18.9 - Pneumonia, unspecified organism (5) Influenza A: (6) Rhabdomyolysis: Qualifiers: Encounter type: subsequent encounter Rhabdomyolysis type: traumatic Qualified Code(s): T79.6XXD - Traumatic ischemia of muscle, subsequent encounter (7) MAHESH (acute kidney injury): (8) Closed traumatic nondisplaced fracture of multiple ribs of left side with routine healing: (9) Closed fracture of sternum with routine healing: Qualifiers: Sternal location: body of sternum Qualified Code(s): S22.22XD - Fracture of body of sternum, subsequent encounter for fracture with routine healing (10) Senile dementia: (11) Sepsis: Qualifiers: Acute respiratory failure type: with hypoxia Sepsis acute organ dysfunction status: with acute organ dysfunction Sepsis type: methicillin susceptible Staphylococcus aureus Severe sepsis acute organ dysfunction type: acute respiratory failure Severe sepsis shock status: without septic shock Qualified Code(s): A41.01 - Sepsis due to Methicillin susceptible Staphylococcus aureus; R65.20 - Severe sepsis without septic shock; J96.01 - Acute respiratory failure with hypoxia (12) Acute respiratory distress: Plan Admission findings: Patient with sinus tachycardia, respiratory distress, acute hypoxia requiring BiPAP ventilation with acute hypoxic respiratory failure, somewhat hypertensive on admission but then hypotensive later on, significant leukocytosis with lactic acidosis and acute rhabdomyolysis, and pneumonia resulting in severe sepsis Acute hypoxic respiratory failure requiring BiPAP ventilation secondary to community-acquired pneumonia resulting in severe sepsis-was improving and then condition deteriorated so likely now nosocomial pneumonia, obtain sputum culture 2 days ago, will check on those results, white blood cell count 2 days ago was 35,000 down to 20,000 today with change in antibiotics. So far with a overall improving in the last several days, good diuresis, not as good yesterday as the day before but patient did not receive his albumin yesterday, will repeat albumin today, repeat Bumex drip again today, check on sputum culture Influenza A-treatment completed Chest wall contusion resulting in acute minimally displaced sternal fracture and multiple rib fractures-this was discovered on CT scan pain control fairly stable Fluid overload-did not have his good diuresis yesterday but did not receive his albumin yesterday, will give albumin and Bumex drip again today. Consider oral agents starting tomorrow Hypokalemia-supplement Acute diarrhea-C. difficile negative, this is likely related to the antibiotics but he needs those as outlined above Severe aortic stenosis-see cardiology consultation, this would also result in needing to be slow with his diuresis , Acute rhabdomyolysis with acute kidney injury-resolved L History of hypertension-stable Mild dementia-continue with home medications Hypercholesterolemia continue with home medications Severe protein calorie malnutrition-diet management-see above Abnormal urinalysis consistent with acute UTI-check on cultures Hyperammonemia-stable Admission status: Patient with severe sepsis secondary due to to pneumonia with acute hypoxic respiratory failure with multiple rib fractures and sternal fracture, medically necessary treatment will span 2 midnights. Inpatient status Urinary Catheter Management Urinary Catheter Management Urethral: Cath placed during this visit: yes Urethral indwelling: No Insertion date: 11/19/24 Insertion time: 22:30
[2024-12-02 06:18] LABS: Basophils Percent Auto 0.1 % (0.2-2.0); Eosinophils Absolute Auto 0.2 10^3/uL (0.0-0.7); Eosinophils Percent Auto 0.7 % (0.9-7.0); Hematocrit 41.1 % (42.0-54.0); Hemoglobin 13.2 g/dL (14.0-18.0); Lymphocytes Absolute Auto 1.1 10^3/uL (1.2-3.8); Lymphocytes Percent Auto 5.7 % (20.5-60.0); Mean Corpuscular HGB Conc 32.1 g/dL (29.9-35.2); Mean Corpuscular Hemoglobin 28.1 pg (25.9-34.0); Mean Corpuscular Volume 87.6 fL (80.0-94.0); Mean Platelet Volume 8.9 fL (9.5-13.5); Monocytes Absolute Auto 1.4 10^3/uL (0.3-0.8); Monocytes Percent Auto 6.8 % (1.7-12.0); Neutrophils Absolute Auto 17.2 10^3/uL (1.4-6.5); Neutrophils Percent Auto 85.7 % (43.0-75.0); Platelet Count 379 10^3/uL (150-450); Red Blood Count 4.69 10^6/uL (4.70-6.10); White Blood Count 20.1 10^3/uL (4.0-11.0)
[2024-12-02 06:26] LABS: Anion Gap 7.6; BUN Creatinine Ratio 19.5; Calcium 8.4 mg/dL (8.5-10.1); Carbon Dioxide 40.4 mmol/L (21.0-32.0); Chloride 96 mmol/L (98-107); Estimated GFR (African America >60 (>=60 mL/min/1.73m^2); Estimated GFR (Non-African Ame >60 (>=60 mL/min/1.73m^2); Glucose 150 mg/dL (74-106); Sodium 141 mmol/L (136-145)
[2024-12-02 06:36] LABS: Alanine Aminotransferase 42 U/L (16-63); Albumin Globulin Ratio 0.7; Albumin Level 2.4 g/dL (3.4-5.0); Alkaline Phosphatase 86 U/L (46-116); Aspartate Amino Transferase 24 U/L (15-37); Bilirubin Direct 0.2 mg/dL (0.0-0.2); Bilirubin Total 0.8 mg/dL (0.2-1.0); Globulin 3.6 g/dL
--- NOTE | 2024-12-02 08:38 | CM.NOTE ---
Rounds made with Dr. Escalante. Dr. Escalante reviews plan of care. Bumex gtt today. No discharge today.
[2024-12-02] MEDS: ALBUMIN HUMAN 25 GM/100 ML PREMIX IV (09:28)
[2024-12-02] MEDS: POTASSIUM CHLORIDE 40 MEQ in 0.9 % SODIUM CHLORIDE 250 ML 67.5 MEQ IV (09:32)
[2024-12-02] MEDS: PROSTAT 15 GM PROTEIN/100 CAL 30 ML LIQUID PACKET PO ×2 (09:37→21:25)
[2024-12-02] MEDS: METOPROLOL TARTRATE 25 MG TABLET PO ×2 (09:37→21:25)
[2024-12-02] MEDS: LIDOCAINE 5% PATCH 1 PATCH TOPICAL (09:37)
[2024-12-02] MEDS: ENSURE HP 237 ML LIQUID PO ×2 (09:37→21:25)
[2024-12-02] MEDS: FERROUS SULFATE 325 MG TABLET PO (09:37)
[2024-12-02] MEDS: MAGNESIUM OXIDE 400 MG TABLET PO ×2 (09:37→21:25)
[2024-12-02] MEDS: NYSTATIN 15 GM POWDER 1 APPLIC TOPICAL ×2 (09:37→21:26)
[2024-12-02] MEDS: L. ACIDOPHILUS/L.BULGARICUS 1 PACKET GRAN.PACK PO ×2 (09:37→21:25)
[2024-12-02] MEDS: SPIRONOLACTONE 25 MG TABLET 50 MG PO (09:40)
[2024-12-02] MEDS: BUMETANIDE 10 MG in 0.9 % SODIUM CHLORIDE 160 ML IV (09:42)
--- NOTE | 2024-12-02 11:27 | SWNOTE1 ---
Cornelio sent fax requesting more clinical. SW faxed PT/OT, vitals for the last 24 hours, progress note from today, and labs to [facility] requesting she submit to insurance.
--- NOTE | 2024-12-02 12:25 | SWNOTE1 ---
Case management recevied call from [employer] and pt is approved 12/02-12/09. JINNY reached out to [facility] [place] to confirm they received the same information, waiting to hear back.
[2024-12-02] MEDS: ACETAMINOPHEN 500 MG TABLET 1000 MG PO (12:27)
--- NOTE | 2024-12-02 13:16 | SWNOTE1 ---
JINNY spoke to [facility] and they do receive approval for same dates. JINNY reached out to Dr. Escalante to see if pt is ready for discharge today, waiting to hear back.
[2024-12-02] MEDS: POTASSIUM CHLORIDE 10 MEQ ER TABLET 20 MEQ PO ×2 (13:35→21:26)
--- NOTE | 2024-12-02 13:53 | SWNOTE1 ---
JINNY heard back from Dr. Escalante, and waiting for sputum culture to come back before discharge. JINNY updated [facility], pt's , and nurse.
[2024-12-02 14:42] LABS: Anion Gap 9.1; BUN Creatinine Ratio 28.8; Calcium 8.2 mg/dL (8.5-10.1); Carbon Dioxide 35.5 mmol/L (21.0-32.0); Chloride 98 mmol/L (98-107); Estimated GFR (African America >60 (>=60 mL/min/1.73m^2); Estimated GFR (Non-African Ame >60 (>=60 mL/min/1.73m^2); Glucose 136 mg/dL (74-106); Potassium 3.6 mmol/L (3.5-5.1); Sodium 139 mmol/L (136-145)
--- NOTE | 2024-12-02 15:26 | NUTR.NU ---
Pt continues with inadequate nutrient intakes, averaging 50% of estimated needs per meal and nutritional supplement intakes. BLE edema continues and fluid accumulation also noted in BUE. Abnormal lab results obtained 12/02/24 indicate anemia, hypocalcemia, infection, inflammation. Pt meets criteria for severe PCM and remains at risk for further nutritional decline.
[2024-12-02] MEDS: ENOXAPARIN SODIUM 40 MG/0.4 ML SYRINGE SUBQ (17:36)
[2024-12-02] MEDS: DONEPEZIL HCL 10 MG TABLET PO (21:25)
[2024-12-02] MEDS: PANTOPRAZOLE SODIUM 40 MG VIAL IV (21:25)
[2024-12-03] VITALS (9 sets, daily range): BP systolic 115–133; BP diastolic 80–81; PULSE 79–111; TEMP 36.6–36.7; O2SAT 92–98
[2024-12-03] MEDS: LINEZOLID IN DEXTROSE 5% 600 MG/300 ML PIGGYBACK 300 MG IV (00:02)
[2024-12-03] MEDS: CEFTAZIDIME 2,000 MG in 0.9 % SODIUM CHLORIDE 100 ML 200 MG IV (03:22)
[2024-12-03] MEDS: IPRATROPIUM BROMIDE 0.5 MG/2.5 ML VIAL.NEB IH (04:01)
[2024-12-03] MEDS: LEVALBUTEROL HCL 0.63 MG/3 ML VIAL.NEB IH (04:01)
[2024-12-03] MEDS: CLINDAMYCIN PHOSPHATE/D5W 600 MG/50 ML PREMIX 100 MG IV (05:15)
[2024-12-03] MEDS: POTASSIUM CHLORIDE 10 MEQ ER TABLET 20 MEQ PO (05:15)
[2024-12-03 05:50] LABS: Basophils Absolute Auto 0.1 10^3/uL (0.0-0.1); Basophils Percent Auto 0.3 % (0.2-2.0); Eosinophils Absolute Auto 0.2 10^3/uL (0.0-0.7); Eosinophils Percent Auto 0.9 % (0.9-7.0); Hematocrit 43.4 % (42.0-54.0); Hemoglobin 14.4 g/dL (14.0-18.0); Immature Granulocytes Abs Auto 0.22 10^3/uL (0.00-0.03); Immature Granulocytes Pct Auto 1.2 % (0.0-0.5); Lymphocytes Absolute Auto 1.4 10^3/uL (1.2-3.8); Lymphocytes Percent Auto 7.4 % (20.5-60.0); Mean Corpuscular HGB Conc 33.2 g/dL (29.9-35.2); Mean Corpuscular Hemoglobin 28.7 pg (25.9-34.0); Mean Corpuscular Volume 86.6 fL (80.0-94.0); Mean Platelet Volume 8.8 fL (9.5-13.5); Monocytes Absolute Auto 1.2 10^3/uL (0.3-0.8); Monocytes Percent Auto 6.2 % (1.7-12.0); Neutrophils Absolute Auto 16.1 10^3/uL (1.4-6.5); Platelet Count 416 10^3/uL (150-450); Red Blood Count 5.01 10^6/uL (4.70-6.10); Red Cell Distribution Width 13.8 % (11.0-15.0); White Blood Count 19.1 10^3/uL (4.0-11.0)
--- NOTE | 2024-12-03 06:01 | P.DS_ITS ---
DS: Providers Provider Date of admission: 11/19/24 18:41 Primary care physician: Atiya Hong MD Consults: 11/19/24 19:33 Occupational Therapy Eval and Treat Routine Reason for consultation: Only if needed for Rehab Has provider been notified: No Physical Therapy Eval and Treat Routine Reason for consultation: Eval and Treat Has provider been notified: No 11/26/24 Consult to Pulmonology Routine Consulting Provider: Larry Drew Reason for consultation: Respiratory Failure, Hypoxia Has provider been notified: Yes 11/27/24 15:14 Consult to Cardiology Routine Reason for consultation: severe aortic valve stenosis seen on echo Has provider been notified: No DS: Diagnosis Discharge Diagnosis (1) Severe aortic valve stenosis: (2) Benign essential hypertension: (3) Acute hypoxic respiratory failure: (4) Community acquired pneumonia: Qualifiers: Laterality: left Lung location: lower lobe of lung Qualified Code(s): J18.9 - Pneumonia, unspecified organism (5) Influenza A: (6) Rhabdomyolysis: Qualifiers: Encounter type: subsequent encounter Rhabdomyolysis type: traumatic Qualified Code(s): T79.6XXD - Traumatic ischemia of muscle, subsequent encounter (7) MAHESH (acute kidney injury): (8) Closed traumatic nondisplaced fracture of multiple ribs of left side with routine healing: (9) Closed fracture of sternum with routine healing: Qualifiers: Sternal location: body of sternum Qualified Code(s): S22.22XD - Fracture of body of sternum, subsequent encounter for fracture with routine healing (10) Senile dementia: (11) Sepsis: Qualifiers: Acute respiratory failure type: with hypoxia Sepsis acute organ dys function status: with acute organ dysfunction Sepsis type: methicillin susceptible Staphylococcus aureus Severe sepsis acute organ dysfunction type: acute respiratory failure Severe sepsis shock status: without septic shock Qualified Code(s): A41.01 - Sepsis due to Methicillin susceptible Staphylococcus aureus; R65.20 - Severe sepsis without septic shock; J96.01 - Acute respiratory failure with hypoxia (12) Acute respiratory distress: Plan Admission findings: Patient with sinus tachycardia, respiratory distress, acute hypoxia requiring BiPAP ventilation with acute hypoxic respiratory failure, somewhat hypertensive on admission but then hypotensive later on, significant leukocytosis with lactic acidosis and acute rhabdomyolysis, and pneumonia resulting in severe sepsis Acute hypoxic respiratory failure requiring BiPAP ventilation secondary to community-acquired pneumonia resulting in severe sepsis-was improving and then condition deteriorated so likely now nosocomial pneumonia, obtain sputum culture 2 days ago, will check on those results, white blood cell count 2 days ago was 35,000 down to 20,000 today with change in antibiotics. Much improved at the time of discharge L Influenza A-treatment completed Chest wall contusion resulting in acute minimally displaced sternal fracture and multiple rib fractures-this was discovered on CT scan pain control fairly stable Fluid overload-did not have his good diuresis yesterday but did not receive his albumin yesterday, will give albumin and Bumex drip again today. Consider oral agents starting tomorrow Hypokalemia-supplement Acute diarrhea-C. difficile negative, this is likely related to the antibiotics but he needs those as outlined above Severe aortic stenosis-see cardiology consultation, this would also result in needing to be slow with his diuresis , Acute rhabdomyolysis with acute kidney injury-resolved History of hypertension-stable Mild dementia-continue with home medications Hypercholesterolemia continue with home medications Severe protein calorie malnutrition-diet management-see above Abnormal urinalysis consistent with acute UTI-check on cultures Hyperammonemia-stable Admission status: Patient with severe sepsis secondary due to to pneumonia with acute hypoxic respiratory failure with multiple rib fractures and sternal fracture, medically necessary treatment will span 2 midnights. Inpatient status DS: Summary Hospital Course Hospital Course: Patient with a very complicated history, fell twice, second time he was on the floor for about 24 hours, presented to the emergency room workup found pneumonia, treated for that transferred to the ICU secondary to hypoxia and need for BiPAP, patient not significant improving after couple doses CT scan of the chest was obtained which showed multiple rib fractures in multiple locations of the same rib as well as sternal fracture, case was discussed with trauma surgeon, since patient is already 2 days into it and his rhabdomyolysis was already improving she did not feel the reason for transfer at that time. Patient still difficulty with respiratory distress, is white blood cell count was high but improving and then started to deteriorate, antibiotics were changed 4 days ago, he is much improved with the change in antibiotics his white blood cell count is still 20,000 but much improved from the 35,000, BNP and high- sensitivity troponins have been normal as of late, but did have significant fluid overload he has diuresed with a net of 9 L in the last 4 days. At this point he would be medically stable for discharge. He will need his home BiPAP at at bedtime, he is down to 5 L supplemental oxygen during the day he may need his BiPAP or CPAP during the day with it at rest. Medications see this. Would recommend continuing antibiotics until cultures have returned, good sputum culture obtained 4 days ago, follow-up PCP at discharge Pt needs Home BIpap or CPAP at HS Status at Discharge Overall status at discharge: patient is not back to baseline Time Spent with Patient Time attestation: Total time spent providing and/or coordinating discharge services: Time spent: greater than 30 minutes Exam Constitutional Vital Signs, click to edit/add: Last Vital Signs Temp 98.0 F 12/03/24 04:00 Pulse 103 H 12/03/24 04:06 Resp 20 12/03/24 04:01 BP 127/81 12/03/24 04:00 Pulse Ox 98 12/03/24 04:06 O2 Del Method Nasal Cannula 12/03/24 04:01 O2 Flow Rate 6 12/03/24 04:01 FiO2 50 12/01/24 23:43 Documenting provider has reviewed patient's vital signs: yes Common normals: no apparent distress (Much improved respiratory distress) Chest Common normals: inspection of chest normal Respiratory Common normals: normal respiratory effort (Improving over the last several days) Auscultation: rales (Persisting) and rhonchi (Continues to improve daily since change in antibiotics) Cardio Common normals: regular rhythm; irregular rate (Tachycardic but improved) Rate: tachycardic Extremity Common normals: abnormal to inspection (Trace edema persisting) DS: Data Data Completed and Pending Labs on day of discharge: Labs from last 24 hours 02/12/25 02/11/25 02/11/25 05:36 14:08 05:53 WBC 19.1 H 20.1 H RBC 5.01 4.69 L Hgb 14.4 13.2 L Hct 43.4 41.1 L MCV 86.6 87.6 MCH 28.7 28.1 MCHC 33.2 32.1 RDW 13.8 14.0 Plt Count 416 379 MPV 8.8 L 8.9 L Neut % (Auto) 84.0 H 85.7 H Lymph % (Auto) 7.4 L 5.7 L Grant % (Auto) 6.2 6.8 Eos % (Auto) 0.9 0.7 L Baso % (Auto) 0.3 0.1 L Neut # (Auto) 16.1 H 17.2 H Lymph # (Auto) 1.4 1.1 L Grant # (Auto) 1.2 H 1.4 H Eos # (Auto) 0.2 0.2 Baso # (Auto) 0.1 0.0 Abs Immat Gran (auto) 0.22 H 0.20 H Imm/Tot Granulo (auto) 1.2 H 1.0 H Sodium 139 Potassium 3.6 Chloride 98 Carbon Dioxide 35.5 H Anion Gap 9.1 BUN 23.0 H Creatinine 0.80 Est GFR ( Amer) >60 Est GFR (Non-Af Amer) >60 BUN/Creatinine Ratio 28.8 Glucose 136 H Calcium 8.2 L Total Bilirubin 0.8 Direct Bilirubin 0.2 AST 24 ALT 42 Alkaline Phosphatase 86 NT-Pro-B Natriuret Pep 259.0 Total Protein 6.0 L Albumin 2.4 L Globulin 3.6 Albumin/Globulin Ratio 0.7 12/02/24 05:32 WBC RBC Hgb Hct MCV MCH MCHC RDW Plt Count MPV Neut % (Auto) Lymph % (Auto) Grant % (Auto) Eos % (Auto) Baso % (Auto) Neut # (Auto) Lymph # (Auto) Grant # (Auto) Eos # (Auto) Baso # (Auto) Abs Immat Gran (auto) Imm/Tot Granulo (auto) Sodium 141 Potassium 3.0 L Chloride 96 L Carbon Dioxide 40.4 H Anion Gap 7.6 BUN 16.0 Creatinine 0.82 Est GFR ( Amer) >60 Est GFR (Non-Af Amer) >60 BUN/Creatinine Ratio 19.5 Glucose 150 H Calcium 8.4 L Total Bilirubin Direct Bilirubin AST ALT Alkaline Phosphatase NT-Pro-B Natriuret Pep Total Protein Albumin Globulin Albumin/Globulin Ratio Preliminary micro results at discharge 11/30/24 11:58 Lower Respiratory Culture - Preliminary Sputum - Expectorated Sputum 11/29/24 10:36 Blood Culture Result 2 - Preliminary Blood NO GROWTH AT 36-48 HOURS. FINAL TO FOLLOW. 11/29/24 10:29 Blood Culture Result 1 - Preliminary Blood NO GROWTH AT 36-48 HOURS. FINAL TO FOLLOW. Discharge Plan Discharge Disposition: Xfer SNF Condition: Serious Discharge Medications: New acetaminophen 500 mg Tablet 1,000 mg PO Q6H PRN (Reason: Pain Scale 4-6) Qty: 60 0RF benzonatate 100 mg Capsule 200 mg PO Q8H PRN (Reason: Cough) Qty: 60 0RF Pro-Stat Sugar Free 15 gram- 100 kcal/30 mL Liquid In Packet 1 ea PO BID Qty: 2880 0RF levalbuterol HCl 0.63 mg/3 mL Solution For Nebulization 0.63 mg inhalation Q6H Qty: 90 0RF magnesium oxide 400 mg (241.3 mg magnesium) Tablet 400 mg PO BID Qty: 30 0RF nystatin [Nystop] 100,000 unit/gram Powder 1 applic topical BID Qty: 15 0RF ipratropium bromide 0.02 % Solution 0.5 mg inhalation Q6H Qty: 150 0RF clindamycin in 5 % dextrose 600 mg/50 mL Piggyback 600 mg IV Q6H Qty: 1200 0RF Ensure Active Protein-Muscle Liquid 1 ea PO BID Qty: 5688 0RF enoxaparin 40 mg/0.4 mL Syringe 40 mg subcut Q24H Qty: 4 11RF linezolid in dextrose 5% 600 mg/300 mL Piggyback 600 mg IV Q12H Qty: 3000 0RF Lactobacillus acidoph-L.bulgar [Floranex] 100 million cell Granules In Packet 1 packet PO BID Qty: 12 0RF potassium chloride 10 mEq Tablet,Er Particles/Crystals 20 meq PO TID Qty: 60 0RF metoprolol tartrate 25 mg Tablet 25 mg PO BID Qty: 60 0RF Ceftazidime [Fortaz] 2000 MG 0.9 % Sodium Chloride [Sodium Chloride 0.9% 100 ml] 100 ML 200 mls/hr IV Q8H Ordered By: Karson Escalante MD Last Taken: 12/03/24 03:22 200 mls/hr bumetanide 0.5 mg tablet 0.5 mg PO DAILY Qty: 30 7RF Continued donepezil 10 mg tablet 10 mg PO .QHS pramipexole 0.5 mg tablet 0.5 mg PO DAILY pravastatin 40 mg tablet 40 mg PO DAILY ferrous sulfate [Daren-Time] 325 mg (65 mg iron) tablet 325 mg PO DAILY Discontinued lisinopril-hydrochlorothiazide 20-25 mg tablet 1 tab PO DAILY Print Language: German Forms: Portal Instructions
[2024-12-03 06:09] LABS: Anion Gap 6.2; BUN Creatinine Ratio 26.2; Calcium 8.8 mg/dL (8.5-10.1); Carbon Dioxide 40.2 mmol/L (21.0-32.0); Chloride 96 mmol/L (98-107); Estimated GFR (African America >60 (>=60 mL/min/1.73m^2); Estimated GFR (Non-African Ame >60 (>=60 mL/min/1.73m^2); Glucose 129 mg/dL (74-106); Potassium 3.4 mmol/L (3.5-5.1); Sodium 139 mmol/L (136-145)
[2024-12-03] MEDS: LIDOCAINE 5% PATCH 1 PATCH TOPICAL (08:45)
[2024-12-03] MEDS: FERROUS SULFATE 325 MG TABLET PO (08:46)
[2024-12-03] MEDS: ENSURE HP 237 ML LIQUID PO (08:46)
[2024-12-03] MEDS: PROSTAT 15 GM PROTEIN/100 CAL 30 ML LIQUID PACKET PO (08:46)
[2024-12-03] MEDS: NYSTATIN 15 GM POWDER 1 APPLIC TOPICAL (08:46)
[2024-12-03] MEDS: MAGNESIUM OXIDE 400 MG TABLET PO (08:46)
[2024-12-03] MEDS: L. ACIDOPHILUS/L.BULGARICUS 1 PACKET GRAN.PACK PO (08:46)
[2024-12-03] MEDS: METOPROLOL TARTRATE 25 MG TABLET PO (08:46)
--- NOTE | 2024-12-03 08:51 | CM.NOTE ---
Rounds made with Dr. Escalante, pt will discharge to [facility] for skilled therapy today.
--- NOTE | 2024-12-03 10:10 | SWNOTE1 ---
Pt is ready for discharge today. JINNY spoke to nurse and she is ready for dc anytime as the orders are in. Pt can go by wheelchair. JINNY set up trips transportation for 10:30-10:45. JINNY let nurse, Vicente, and pt's know of time. SW already completed HENs. JINNY faxed dc orders, dc summary, labs from today and vitals from today to [place]. Pt is going on 3 IV antibiotics, he has pending sputum cultures. Vicente has voiced they are alright with pt coming with peripherals as pt will only need the IV's for a few more days. Pt is going skilled to [place]
--- NOTE | 2024-12-03 11:08 | PT.DAILY ---
Physical Therapy Daily Note PT Daily Note/Assess Start: 11/22/24 10:41 Freq: Status: Discharge Protocol: Document 12/03/24 11:03 CITLALLI (Rec: 12/03/24 11:08 CITLALLI [id number]) Physical Therapy Daily Note/Assessment Time In/Time Out Time In 09:40 Time Out 10:05 Pain In Pain N/A Pain Out Pain N/A Subjective Subjective Supine upon arrival. Pt being DC to [facility] soon. Agreeable to PT. On 5L O2. 90% Therapeutic Activity Time Therapeutic Activity 15 Minutes (minutes) Therapeutic Activity 1 Units Therapeutic Activity Treatment Bed Mobility Ability Moderate Assist Chair Transfer Contact Guard Assist,Moderate Assist Ability Therapeutic Activity Supine>sit ModA to advance upper body to sit EOB. Pt Comments sits EOB with bilat UE support but no outside assistance needed to maintain balance. Pt needs to use restroom. SIt>Stand ModA+1 and CGA+1 at RW and stand pivots to BS commode. Uses restroom. SIt>stand ModA of 1 and assist of another to perform pericare - static standing Miriam for 3 min while cleaned up. SPO2 87% with exertion. Pt placed in WC upon completion ready for transport left under nurses care. Total Physical Therapy Time Total Therapy 15 Minutes Total Physical 1 Therapy Units Summary Daily Note Summary Cont to require ModA for transfers. Will benefit from SNF stay to rebuild strength and endurance.
== END 2024-12-03 10:27 | DRG 871 ==
LOC: ER 17:56 → ICU 18:42 → MS 11-23 13:30
PROVIDERS: Family Medicine; Admitting Provider Family Medicine; Emergency Provider Emergency Medicine; PCP Family Medicine; Visit Provider Family Medicine
DX: A41.01 Sepsis due to Methicillin susceptible Staphylococcus aureus (principal); E43 Unspecified severe protein-calorie malnutrition; J96.01 Acute respiratory failure with hypoxia; J10.08 Influenza due to other identified influenza virus with other specified pneumonia; J15.9 Unspecified bacterial pneumonia; S22.42XA Multiple fractures of ribs, left side, initial encounter for closed fracture; S22.20XA Unspecified fracture of sternum, initial encounter for closed fracture; N17.9 Acute kidney failure, unspecified; E72.20 Disorder of urea cycle metabolism, unspecified; R65.20 Severe sepsis without septic shock; I10 Essential (primary) hypertension; F03.A0 Unspecified dementia, mild, without behavioral disturbance, psychotic disturbance, mood disturbance, and anxiety; E78.00 Pure hypercholesterolemia, unspecified; W18.11XA Fall from or off toilet without subsequent striking against object, initial encounter; T79.6XXA Traumatic ischemia of muscle, initial encounter; Z91.81 History of falling; G47.33 Obstructive sleep apnea (adult) (pediatric); E66.9 Obesity, unspecified; Z68.31 Body mass index [BMI] 31.0-31.9, adult; Z87.891 Personal history of nicotine dependence; Z79.899 Other long term (current) drug therapy; S20.219A Contusion of unspecified front wall of thorax, initial encounter; E87.70 Fluid overload, unspecified; I35.0 Nonrheumatic aortic (valve) stenosis; Z66 Do not resuscitate; R19.7 Diarrhea, unspecified; E87.6 Hypokalemia; Y95 Nosocomial condition
CPT/HCPCS: 36415; 36600; 51702; 70450; 71045; 71275; 74176; 80048; 80053; 80076; 81001; 82140; 82150; 82550; 82553; 82800; 82805; 83605; 83690; 83735; 83874; 83880; 84484; 85007; 85025; 85027; 85610; 85730; 87040; 87045; 87046; 87070; 87086; 87106; 87150; 87186; 87205; 87427; 87493; 87804; 87811; 93005; 93306; 93970; 94640; 94660; 94667; 94668; 94761; 94762; 94799; 96361; 96365; 96368; 97110; 97163; 97164; 97165; 97530; 97535; 99291; 99292; G0328; J0696; J0713; J1650; J1720; J1885; J1940; J2020; J2543; J2919; J3370; J3480; P9046; Q9967

== ENCOUNTER 2025-04-26 17:44 | Outpatient (REF) | payer MEDICARE, MEDICAID, SELFPAY ==
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
[2025-04-26 18:18] LABS: Hematocrit 47.1 % (42.0-54.0); Hemoglobin 14.8 g/dL (14.0-18.0); Immature Granulocytes Abs Auto 0.29 10^3/uL (0.00-0.03); Immature Granulocytes Pct Auto 2.1 % (0.0-0.5); Lymphocytes Absolute Auto 1.6 10^3/uL (1.2-3.8); Mean Corpuscular HGB Conc 31.4 g/dL (29.9-35.2); Mean Corpuscular Hemoglobin 27.8 pg (25.9-34.0); Mean Corpuscular Volume 88.5 fL (80.0-94.0); Platelet Count 415 10^3/uL (150-450); Red Blood Count 5.32 10^6/uL (4.70-6.10); White Blood Count 14.1 10^3/uL (4.0-11.0)
[2025-04-26 18:28] LABS: Alanine Aminotransferase 17 U/L (16-63); Albumin Globulin Ratio 0.8; Albumin Level 2.0 g/dL (3.4-5.0); Alkaline Phosphatase 70 U/L (46-116); Anion Gap 11.6; Aspartate Amino Transferase 18 U/L (15-37); Blood Urea Nitrogen 15.0 mg/dL (7.0-18.0); Calcium 8.5 mg/dL (8.5-10.1); Carbon Dioxide 29.1 mmol/L (21.0-32.0); Chloride 108 mmol/L (98-107); Estimated GFR (African America >60 (>=60 mL/min/1.73m^2); Estimated GFR (Non-African Ame >60 (>=60 mL/min/1.73m^2); Globulin 2.5 g/dL; Glucose 123 mg/dL (74-106); Potassium 4.7 mmol/L (3.5-5.1); Sodium 144 mmol/L (136-145); Total Protein 4.5 g/dL (6.4-8.2)
== END 2025-04-26 17:45 | disposition home or self-care (01) ==
LOC: LAB 17:44
PROVIDERS: PCP Family Medicine; Visit Provider Family Medicine
DX: R41.82 Altered mental status, unspecified (principal)
CPT/HCPCS: 36415; 80053; 85025